=== PATIENT | female | born 1965 | race Caucasian/White ===

== ENCOUNTER → 2017-08-04 16:41 | Outpatient (CLI) | payer BC, SELFPAY ==
--- NOTE | 2017-08-04 16:49 | MM_ITS ---
MM Dig screening mamm BI w/CAD CAD Screening COMPARISON: Digital mammograms 11/15/2014 at 01/23/2016 INDICATION: There is no personal or family history of breast cancer. There is been previous biopsy right breast. TECHNIQUE: Standard CC and MLO images were obtained. R2 CAD reviewed. FINDINGS: Prominent diffuse heterogenic fibroglandular densities are seen throughout both breasts. There is a possible new area of asymmetric glandular density lower central portion left breast at approximately the 6:00 position. This is deep within the breast and likely is a summation shadow. However] recommend patient return for rolled cc views and 90 degrees lateral view and ultrasound for additional evaluation. There are mole markers on each breast. There is a biopsy clip right breast. There are no suspicious microcalcifications. IMPRESSION: Moderate diffuse breast density with possible developing asymmetric density left breast and recommend patient return for additional imaging BI-RADS Category: 0 Need Additional Imaging Evaluation RECOMMENDED FOLLOW-UP: IMM - IMMEDIATE FOLLOW-UP RECOMMENDED (A letter has been sent to the patient regarding results of the study.)
== END ==
PROVIDERS: Family Provider Nurse Practitioner; PCP Nurse Practitioner; Visit Provider Nurse Practitioner
DX: Z12.31 Encounter for screening mammogram for malignant neoplasm of breast (principal)
CPT/HCPCS: 77067

== ENCOUNTER → 2017-09-05 12:41 | Outpatient (CLI) | payer BC, SELFPAY ==
--- NOTE | 2017-09-05 12:46 | MM_ITS ---
MM Dig mamm DX unilat LT CAD, US breast LT complete COMPARISON: 08/04/2017, 11/15/1948, 06/15/2013 INDICATION: Follow-up abnormal mammogram ORDERING PHYSICIAN: Emi Leal PATIENT AGE: 52 years TECHNIQUE: Problem-solving views and left breast ultrasound FINDINGS: There is average to dense fibroglandular tissue. Previously noted asymmetric density deep aspect of the left breast appear to compress out as fibroglandular tissue. The asymmetric density does not persist on the rolled views. The asymmetric density in the inferior aspect of the left breast probably present on previous exams dating back to 714 without evidence of discrete mass. No sonographic abnormality evident in this region. Severe to compress out on spot compression view Left breast ultrasound: No sonographic abnormalities detected. Specifically, no mass evident in the deep aspect of the left breast or the infra aspect of the left breast IMPRESSION: No convincing evidence of malignancy. Probably benign findings BI-RADS Category: 3 Benign Finding Short Term Follow-up RECOMMENDED FOLLOW-UP: 6M - 6 MONTH FOLLOW-UP (A letter has been sent to the patient regarding results of the study.)
== END ==
PROVIDERS: Family Provider Nurse Practitioner; PCP Nurse Practitioner; Visit Provider Nurse Practitioner Family
DX: R92.8 Other abnormal and inconclusive findings on diagnostic imaging of breast (principal)
CPT/HCPCS: 76641; 77065

== ENCOUNTER → 2019-05-03 16:15 | Outpatient (CLI) | payer BC, SELFPAY ==
--- NOTE | 2019-05-03 16:20 | MM_ITS ---
PROCEDURE: MM DIG SCREENING MAMM BI W/CAD CLINICAL INDICATION: SCREENING There is no personal or family history of breast cancer. COMPARISON: [facility] DIG MAMM-SCREEN ANGELA from 01/23/2016 [facility] MM Dig screening mamm BI w/CAD from 08/04/2017 DXLT MM Dig mamm DX unilat LT CAD from 09/05/2017 TECHNIQUE: Standard CC and MLO images were obtained. R2 CAD reviewed. FINDINGS: Moderate diffuse somewhat heterogenic fibroglandular densities are seen in both breast. There are mole markers on both breasts. There is a biopsy clip right breast. There is a stable low-lying fatty replaced node near the axillary tail left breast. There is no suspicious lesion and no suspicious microcalcifications. IMPRESSION: Moderate diffuse breast density with no suspicious lesions seen BI-RAD Category: 2 Benign Finding(s) FOLLOW-UP: 1YR 1 Year Follow-up (A letter has been sent to the patient regarding results of the study.) Dictated by: Dr. Christiano Flood MD 05/04/2019 15:[address] Christiano Flood MD in [place] 05/04/2019 15:14
== END ==
PROVIDERS: PCP Nurse Practitioner Family; Visit Provider Nurse Practitioner Family
DX: Z12.31 Encounter for screening mammogram for malignant neoplasm of breast (principal)
CPT/HCPCS: 77067

== ENCOUNTER → 2021-03-15 07:50 | Outpatient (CLI) | payer BC, SELFPAY ==
--- NOTE | 2021-03-15 07:53 | MM_ITS ---
PROCEDURE INFORMATION: Exam: MG Bilateral Screening 3D Mammography Exam date and time: 03/15/2021 7:53 AM Age: 56 years old Clinical indication: Encounter for screening mammogram for malignant neoplasm of breast TECHNIQUE: Imaging protocol: Bilateral screening tomosynthesis and 2D mammography including computer-aided detection (CAD) when performed. COMPARISON: No relevant prior studies available. FINDINGS: MAMMOGRAPHY: Breast composition: The breast tissue is heterogeneously dense, which may obscure small masses. Mass: None. Architectural distortion: None. Calcifications: No suspicious calcifications. Asymmetric density: None. Skin thickening: None. Axillary adenopathy: None. IMPRESSION: No mammographic evidence of malignancy. Annual screening is recommended unless otherwise clinically indicated. ASSESSMENT: BI-RADS Category 1: Negative
== END ==
PROVIDERS: PCP Nurse Practitioner Family; Visit Provider Family Medicine
DX: Z12.31 Encounter for screening mammogram for malignant neoplasm of breast (principal)
CPT/HCPCS: 77063; 77067

== ENCOUNTER → 2022-04-08 09:10 | Outpatient (CLI) | payer BC, SELFPAY ==
--- NOTE | 2022-04-08 09:36 | MM_ITS ---
PROCEDURE INFORMATION: Exam: MG Bilateral Screening 3D Mammography Exam date and time: 04/08/2022 9:40 AM Age: 57 years old Clinical indication: Screening examination TECHNIQUE: Imaging protocol: Bilateral Screening tomosynthesis and 2D mammography including computer-aided detection (CAD) when performed. COMPARISON: 1. MG MM DIG SCREENING MAMM BI W/CAD 03/15/2021 8:06 AM 2. MG MM DIG SCREENING MAMM BI W/CAD 05/03/2019 4:40 PM FINDINGS: MAMMOGRAPHY: Breast composition: There are scattered areas of fibroglandular density. Mass: None. Architectural distortion: None. Calcifications: No suspicious calcifications. Asymmetric density: None. Skin thickening: None. Axillary adenopathy: None. IMPRESSION: No mammographic evidence of malignancy. Annual screening is recommended unless otherwise clinically indicated. ASSESSMENT: BI-RADS Category 1: Negative
== END ==
PROVIDERS: PCP Family Medicine; Visit Provider Obstetrics & Gynecology
DX: Z12.31 Encounter for screening mammogram for malignant neoplasm of breast (principal)
CPT/HCPCS: 77063; 77067

== ENCOUNTER → 2023-05-22 07:31 | Outpatient (CLI) | payer BC, SELFPAY ==
--- NOTE | 2023-05-22 07:37 | MM_ITS ---
PROCEDURE INFORMATION: Exam: MG Bilateral Screening 3D Mammography Exam date and time: 05/22/2023 7:34 AM Age: 58 years old Clinical indication: Screening. No family history of breast cancer. TECHNIQUE: Imaging protocol: Bilateral Screening tomosynthesis and 2D mammography including computer-aided detection (CAD) when performed. COMPARISON: 1. MG MM DIG SCREENING MAMM BI W/CAD 04/08/2022 9:40 AM 2. MG MM DIG SCREENING MAMM BI W/CAD 03/15/2021 8:06 AM 3. MG MM DIG SCREENING MAMM BI W/CAD 05/03/2019 4:40 PM 4. MG DXLT MM Dig mamm DX unilat LT CAD 09/05/2017 1:11 PM FINDINGS: MAMMOGRAPHY: Breast composition: There are scattered areas of fibroglandular density. Mass: None. Architectural distortion: None. Calcifications: No suspicious calcifications. Asymmetric density: None. Skin thickening: None. Axillary adenopathy: None. IMPRESSION: No mammographic evidence of malignancy. Annual screening is recommended unless otherwise clinically indicated. ASSESSMENT: BI-RADS Category 1: Negative
== END ==
PROVIDERS: PCP Family Medicine; Visit Provider Family Medicine
DX: Z12.31 Encounter for screening mammogram for malignant neoplasm of breast (principal)
CPT/HCPCS: 77063; 77067

== ENCOUNTER 2023-07-09 08:30 | Emergency (ER) | payer BC, SELFPAY ==
[2023-07-09 09:15] VITALS: BP 131/84; PULSE 125; RESP 18; TEMP 36.7; O2SAT 99; BMI 26.2
--- NOTE | 2023-07-09 09:17 | EXP.UTC ---
Discharge Plan Disposition Patient Disposition: Home, Self-Care Condition: Good Prescriptions Prescriptions: New ondansetron 4 mg Tablet,Disintegrating 4 mg PO Q8H PRN (Reason: Nausea) Qty: 12 0RF meclizine 25 mg tablet 25 mg PO Q6HP PRN (Reason: diziness) Qty: 30 0RF azithromycin [Zithromax] 250 mg tablet 250 mg PO UD DOSE PK Qty: 6 0RF Rx Instructions: Take two (2) tablets today, then one (1) tablet days #2 thru #5 benzonatate [benzonatate] 100 mg capsule 100 mg PO TIDP PRN (Reason: Cough) Qty: 30 0RF No Action metformin 1,000 mg tablet 500 mg PO DAILY Jardiance 25 mg tablet 25 mg PO DAILY gabapentin 400 mg capsule 400 mg PO DAILY pravastatin 40 mg tablet 40 mg PO DAILY fenofibrate nanocrystallized 145 mg tablet 145 mg PO DAILY estradiol 0.01 % (0.1 mg/gram) cream 1 appful vaginal .twice weekly Qty: 42.5 2RF Referrals Follow up/Referrals: Jessika Guillory APRN [Primary Care Provider] - See instructions Activity Restrictions/Add. Instructions Additional Instructions/Restrictions: Drink plenty of fluids. Take tylenol or ibuprofen for pain or fever. Take the medications as directed. Follow up with your regular doctor. GO TO THE ER FOR ANY WORSENING SYMPTOMS Take the zofran (ondesetron) as needed for nausea. Take the meclizine (antivert) as needed for dizziness. It will make you drowsy, so don't drive or operate heavy machinery after taking it. Clinical Impressions Clinical Impression: Acute viral syndrome Stand Alone Forms Stand Alone Forms: Work/School Release Instructions Patient Instructions: DI for Viral Syndrome, Ondansetron, Meclizine Discharge ED Provider: Kareem Walker [facility] General Stated complaint: body aches, dizziness, dry heaves, nausea Time Seen by Provider: 07/09/23 09:17 History of Present Illness Provider Complaint: She states that for the past 1 day she has had low grade fever, chills, body aches, nausea/vomiting, and intermittent dizziness. 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 Related Data Home Medications Medication Instructions Recorded Confirmed empagliflozin 25 mg tablet 25 mg PO DAILY 05/19/21 07/09/23 (Jardiance) gabapentin 400 mg capsule 400 mg PO DAILY 05/19/21 07/09/23 fenofibrate nanocrystallized 145 145 mg PO DAILY 05/22/23 07/09/23 mg tablet metformin 1,000 mg tablet 500 mg PO DAILY 05/22/23 07/09/23 pravastatin 40 mg tablet 40 mg PO DAILY 05/22/23 07/09/23 Previous Rx's Medication Instructions Recorded estradiol 0.01% (0.1 mg/gram) 1 appful vaginal .twice weekly 05/27/23 vaginal cream #42.5 grams azithromycin 250 mg tablet 250 mg PO UD DOSE PK #6 tabs 07/09/23 (Zithromax) benzonatate 100 mg capsule 100 mg PO TIDP PRN Cough #30 caps 07/09/23 meclizine 25 mg tablet 25 mg PO Q6HP PRN diziness #30 tabs 07/09/23 ondansetron 4 mg disintegrating 4 mg PO Q8H PRN Nausea #12 tabs 07/09/23 tablet Allergies Allergy/AdvReac Type Severity Reaction Status Date / Time No Known Allergies Allergy Verified 07/09/23 09:36 [facility] Disclaimer: The information contained in this section may have been updated after the patient was seen, as this information can be updated by other users. Medical History Diabetes mellitus History of hypertension Surgical History History of delivery History of cholecystectomy Social History Smoking Status: Never smoker alcohol intake: never current occupational status: employed Travel in the last 8 weeks: None ROS Obtained: Yes All systems reviewed & no additional complaints except as documented Constitutional Constitutional: Reports chills and Reports fever(s) Eyes Eyes: Denies eye discharge ENT Ears, Nose, Mouth, and Throat: Reports as per HPI Cardiovascular Cardiovascular: Denies chest pain Respiratory Respiratory: Denies chest congestion and Reports cough Gastrointestinal Gastrointestingal: Reports nausea; Denies abdominal pain, constipation, cramping, diarrhea or vomiting Musculoskeletal Musculoskeletal: Denies arthralgias Integumentary/Breasts Skin/Breast: Denies rash Neurologic Neurologic: Denies paresthesias Physical Exam General General appearance: alert and in no apparent distress Head Head exam: atraumatic, normocephalic and normal inspection Eye Eye exam: Present normal appearance, PERRL and EOMI ENT ENT exam: Present normal exam, normal oropharynx, mucous membranes moist, TM's normal bilaterally and normal external ear exam Neck Neck exam: Present normal inspection, full ROM and trachea midline; Absent meningismus or lymphadenopathy Chest Chest inspection: Present normal inspection and symmetric chest wall rise; Absent tenderness Respiratory Respiratory exam: Present normal lung sounds bilaterally; Absent respiratory distress Cardiovascular Cardiovascular exam: Present regular rate and normal rhythm; Absent JVD Abdominal Exam Abdominal exam: Present soft and normal bowel sounds; Absent distention, tenderness or guarding Extremities Exam Extremities exam: Present normal inspection, full ROM and normal capillary refill; Absent calf tenderness Back Exam Back exam: Present normal inspection; Absent tenderness Neurological Exam Neurological exam: Present alert, oriented X3, CN II-XII intact, normal gait and reflexes normal; Absent motor sensory deficit Expanded Neurological Exam Speech: Present fluid speech Cranial nerves: Normal: EOM function (II, III, IV, ), facial sensation (V), facial palsy (VII), gag reflex (IX), spinal accessory function (XI) and tongue deviation (XII) Cerebellar function: normal gait Motor strength - LUE: 5/5 Motor strength - RUE: 5/5 Motor strength - LLE: 5/5 Motor strength - RLE: 5/5 Sensory exam upper extremity: Normal: light touch and 2 point discrimination Sensory exam lower extremity: Normal: light touch and 2 point discrimination DTR: 2+: biceps (L), biceps (R), patellar (L), patellar (R), Achilles tendon (L) and Achilles tendon (R) Psychiatric Psychiatric exam: Present normal affect and normal mood Skin Skin exam: Present warm, dry, intact and normal color Lymphatic Lymphatic Findings: no adenopathy Medical Decision Making Medical Records Medical records reviewed: No I reviewed the patient's medical records. Go Inquiry Pt receiving controlled substance: No Lab Data Lab results reviewed: Yes I reviewed the patient's lab results. Medical Decision Narrative: She refused lab work, cxr and IV fluid bolus.
[2023-07-09 09:44] LABS: UTC Influenza A Antigen Negative (Negative)
[2023-07-09 09:45] LABS: UTC Influenza B Antigen Negative (Negative)
[2023-07-09 10:05] VITALS: BP 131/84; PULSE 125; RESP 18; TEMP 36.7; O2SAT 99
[2023-07-09 10:22] LABS: Adenovirus,PCR Not Detected (NotDetected); Coronavirus 19, PCR Not Detected (NotDetected); Coronavirus 229E Not Detected (NotDetected); Coronavirus NL63 Not Detected (NotDetected); Coronavirus OC43 Not Detected (NotDetected); Coronovirus HKU1,PCR Not Detected (NotDetected); Human Metapneumovirus Not Detected (NotDetected); Influenza A, PCR Not Detected (NotDetected); Influenza AH1, 2009 Not Detected (NotDetected); Influenza AH1, PCR Not Detected (NotDetected); Influenza AH3,PCR Not Detected (NotDetected); Influenza B, PCR Not Detected (NotDetected); Parainfluenza 1, PCR Not Detected (NotDetected); Parainfluenza 2, PCR Not Detected (NotDetected); Parainfluenza 3, PCR Not Detected (NotDetected); Parainfluenza 4, PCR Not Detected (NotDetected); Respiratory Syncytial Virus Not Detected (NotDetected); Rhinovirus/Enterovirus Not Detected (NotDetected)
== END 2023-07-09 10:05 | disposition home or self-care (01) ==
PROVIDERS: Emergency Provider Nurse Practitioner Family; PCP Nurse Practitioner Family
DX: R05.9 Cough, unspecified (principal); R11.2 Nausea with vomiting, unspecified; R50.9 Fever, unspecified; R42 Dizziness and giddiness; M79.18 Myalgia, other site; I10 Essential (primary) hypertension; E11.9 Type 2 diabetes mellitus without complications; Z79.84 Long term (current) use of oral hypoglycemic drugs; Z20.828 Contact with and (suspected) exposure to other viral communicable diseases; B34.9 Viral infection, unspecified
CPT/HCPCS: 87632; 87635; 87804; 99212; 99214; G0463

== ENCOUNTER 2023-07-09 21:06 | Inpatient (IN) | payer BC, SELFPAY ==
[2023-07-09] VITALS (12 sets, daily range): BP systolic 96–107; BP diastolic 64–78; PULSE 104–110; RESP 13–17; TEMP 32.8–34.5; O2SAT 96–100; BMI 24.0
--- NOTE | 2023-07-09 21:13 | ED_ITS ---
Discharge Plan Disposition Patient Disposition: Admitted Chief Complaint: Altered Mental Status Clinical Impressions Clinical Impression: DKA, type 2, AMS (altered mental status), Shock Discharge ED Provider: Jonny Whelan General Adult HPI <JESSICA Coombs - Last Filed: 07/09/23 22:51> General Chief complaint: Altered Mental Status Stated complaint: weak, dizzy Time Seen by Provider: 07/09/23 21:09 History of Present Illness HPI narrative: The patient is a 58-year-old female presented to the emergency department initially for altered mental status weakness and dizziness. Patient has a past medical history that includes of type 2 diabetes mellitus not on insulin. Per patient's she is given a 3-day history of progressive nausea vomiting and generalized weakness. Patient did go to work yesterday but did not feel well. Patient reportedly visited the local [facility] today for her symptoms and had a comprehensive respiratory panel that was negative. She then returned home. She was found by a family member disoriented weak barely responsive but awake and maintaining her airway. She cannot walk unassisted. Related Data Home Medications Medication Instructions Recorded Confirmed empagliflozin 25 mg tablet 25 mg PO DAILY 05/19/21 07/09/23 (Jardiance) gabapentin 400 mg capsule 400 mg PO DAILY 05/19/21 07/09/23 fenofibrate nanocrystallized 145 145 mg PO DAILY 05/22/23 07/09/23 mg tablet metformin 1,000 mg tablet 500 mg PO DAILY 05/22/23 07/09/23 pravastatin 40 mg tablet 40 mg PO DAILY 05/22/23 07/09/23 Previous Rx's Medication Instructions Recorded estradiol 0.01% (0.1 mg/gram) 1 appful vaginal .twice weekly 05/27/23 vaginal cream #42.5 grams azithromycin 250 mg tablet 250 mg PO UD DOSE PK #6 tabs 07/09/23 (Zithromax) benzonatate 100 mg capsule 100 mg PO TIDP PRN Cough #30 caps 07/09/23 meclizine 25 mg tablet 25 mg PO Q6HP PRN diziness #30 tabs 07/09/23 ondansetron 4 mg disintegrating 4 mg PO Q8H PRN Nausea #12 tabs 07/09/23 tablet Allergies Allergy/AdvReac Type Severity Reaction Status Date / Time No Known Allergies Allergy Verified 07/09/23 09:36 PFSH <JESSICA Coombs - Last Filed: 07/09/23 22:51> [facility] Disclaimer: The information contained in this section may have been updated after the clifford ent was seen, as this information can be updated by other users. Medical History Diabetes mellitus History of hypertension Surgical History History of delivery History of cholecystectomy Social History Smoking Status: Never smoker alcohol intake: never current occupational status: employed Travel in the last 8 weeks: None <JESSICA Coombs - Last Filed: 07/09/23 22:51> ROS Obtained: Yes Systems reviewed as appropriate & no additional complaints except as documented Physical Exam <JESSICA Coombs - Last Filed: 07/09/23 22:51> Narrative Physical exam: Patient is a toxic appearing well-nourished well-developed 58-year-old female who appears to be acutely ill General General appearance: lethargic and in distress Head Head exam: atraumatic and normal inspection Eye Eye exam: Present normal appearance, PERRL and EOMI ENT ENT exam: Present normal exam, normal oropharynx, mucous membranes moist, mucous membranes dry and other (Patient has a strong odor of acetone on her breath) Neck Neck exam: Present normal inspection, full ROM and trachea midline; Absent lymphadenopathy Chest Chest inspection: Present normal inspection and symmetric chest wall rise; Absent tenderness Respiratory Respiratory exam: Present normal lung sounds bilaterally and other (Patient is significantly tachypneic); Absent accessory muscle use Cardiovascular Cardiovascular exam: Present tachycardia, irregular rhythm, normal heart sounds, +S1 and +S2 Abdominal Exam Abdominal exam: Present soft and hyperactive bowel sounds; Absent tenderness, guarding or rebound Extremities Exam Extremities exam: Present normal inspection and full ROM Back Exam Back exam: Present normal inspection Neurological Exam Neurological exam: Present other (Patient is lethargic and cannot participate in cranial nerve exam. Glascow coma score currently is 3 - 5 - 6) Psychiatric Psychiatric exam: Present other (Patient is lethargic but responds appropriately albeit sluggishly) Skin Skin exam: Present diaphoresis and other (Skin is cool clammy pale) Lymphatic Lymphatic Findings: no adenopathy Medical Decision Making <JESSICA Coombs - Last Filed: 07/09/23 22:51> Medical Records Medical records reviewed: Yes I reviewed the patient's medical records. Go Inquiry Pt receiving controlled substance: No Go was queried for this patient: No Vital Signs: 07/09/23 21:07 07/09/23 21:30 07/09/23 22:00 Temperature 94.1 F L Temperature Source Rectal Pulse Rate 108 H Pulse Rate [Right Brachial] 109 H Respiratory Rate 16 17 16 Blood Pressure 107/73 L 105/70 L Blood Pressure [Right Arm] 104/78 L Blood Pressure Mean [Right Arm] 86 02 Sat by Pulse Oximetry 96 99 Oxygen Delivery Method Room Air 07/09/23 22:32 07/09/23 22:39 07/09/23 22:45 Temperature Temperature Source Pulse Rate 106 H 104 H 105 H Pulse Rate [Right Brachial] Respiratory Rate 15 14 13 Blood Pressure 97/65 L 96/64 L 97/70 L Blood Pressure [Right Arm] Blood Pressure Mean [Right Arm] 02 Sat by Pulse Oximetry 100 100 100 Oxygen Delivery Method 07/09/23 22:55 07/09/23 22:30 07/09/23 23:00 Temperature 93.3 F L 91.1 F L Temperature Source Rectal Rectal Pulse Rate 108 H 105 H 108 H Pulse Rate [Right Brachial] Respiratory Rate 14 14 14 Blood Pressure 97/70 L 96/64 L 106/76 L Blood Pressure [Right Arm] Blood Pressure Mean [Right Arm] 02 Sat by Pulse Oximetry 100 100 100 Oxygen Delivery Method Room Air Room Air 07/09/23 23:15 Temperature Temperature Source Pulse Rate 108 H Pulse Rate [Right Brachial] Respiratory Rate 15 Blood Pressure 104/76 L Blood Pressure [Right Arm] Blood Pressure Mean [Right Arm] 02 Sat by Pulse Oximetry 100 Oxygen Delivery Method Lab Data Lab results reviewed: Yes I reviewed the patient's lab results. Lab Results 07/09/23 21:15: WBC 23.0 H*, RBC 5.37, Hgb 17.1 H, Hct 55.9 H, MCV 104.1 H, MCH 31.8 H, MCHC 30.5 L, RDW 13.2, Plt Count 316, MPV 8.0, Neut % (Auto) 79.8, Lymph % (Auto) 12.4, [place] % (Auto) 6.3, Eos % (Auto) 0.6, Baso % (Auto) 0.9, Neut # (Auto) 18.3 H, Lymph # (Auto) 2.9, [place] # (Auto) 1.5 H, Eos # (Auto) 0.1, Baso # (Auto) 0.2, Total Counted 100, Neutrophils % (Manual) 81 H, Lymphocytes % (Manual) 12, Monocytes % (Manual) 7, Platelet Estimate Normal, RBC Morphology Not Reportable, Macrocytosis 1+, PT 12.8 H, INR 1.20 H, Sodium 135 L, Potassium 3.7, Chloride 102, Carbon Dioxide < 5 L*, Anion Gap 31.7 H, BUN 25 H, Creatinine 1.80 H, Estimated Creat Clear 35, Estimated GFR 29 L, Est GFR ( Amer) 35 L, Glucose 505 H*, Lactate 2.6 H, Calcium 9.2, Magnesium 2.7 H, Total Bilirubin 0.6, AST 46 H, ALT 29, Alkaline Phosphatase 131 H, Troponin I 1.25 H, Total Protein 7.8, Albumin 4.5, Globulin 3.3 H, Albumin/Globulin Ratio 1.4, Procalcitonin 0.666, Acetone Level Moderate 07/09/23 21:17: VBG pH 6.71 L, VBG pCO2 26.0 L, VBG pO2 62.8 H, VBG HCO3 3.2 L, VBG Total CO2 4.0 L, VBG O2 Saturation 87.6 H, VBG Base Excess -32.9 L 07/09/23 21:30: Urine Color Yellow, Urine Appearance Clear, Urine pH 6.0, Ur Specific Pauline 1.025, Urine Protein 1+, Urine Glucose (UA) 3+, Urine Ketones 3+, Urine Blood 2+, Urine Nitrate Negative, Urine Bilirubin Negative, Urine U robilinogen 0.2, Ur Leukocyte Esterase Negative, Urine RBC Occasional, Urine WBC None, Ur Squamous Epith Cells Occasional, Urine Bacteria None 07/09/23 21:15 07/09/23 21:15 Orders (Tests/Meds): ED MEDICATIONS Generic Name Dose Route Start Last Admin Trade Name Freq PRN Reason Stop Dose Admin Lactated Ringer's 2,000 mls @ 999 mls/hr 07/09/23 21:43 07/09/23 21:45 Lactated Ringer's 1000 Ml Bag IV 07/09/23 23:43 999 mls/hr .Q2H1M ONE Administration Vancomycin/PEG/NADA/Lysine/Water 1.25 gm in 250 mls @ 125 mls/hr 07/09/23 21:45 07/09/23 22:24 Vancomycin 1.25gm/250ml (Peg) Premix IV 07/09/23 23:44 125 mls/hr ONCE ONE Administration Insulin Human Regular 100 unit 101 mls @ 6.414 mls/hr 07/09/23 22:00 / Sodium Chloride IV 08/08/23 21:59 .[id number] LOC Protocol 0.1 UNITS/KG/HR Sodium Bicarbonate 50 meq/ 1,050 mls @ 125 mls/hr 07/09/23 22:15 07/09/23 22:37 Potassium Chloride/Sodium IV 08/08/23 22:14 125 mls/hr Chloride .Q8H24M LOC Administration Potassium Chloride/Water 100 mls @ 100 mls/hr 07/09/23 22:47 07/09/23 22:51 Potassium Chloride 10meq/100ml Ivpb IV 07/10/23 00:46 100 mls/hr Q1H LOC Administration Miscellaneous 1 each 07/09/23 21:45 07/09/23 21:45 Vancomycin Consult Request NOTAPPLIC 08/08/23 21:44 1 each CONSULT PHARMACY LOC Administration Sodium Chloride 10 ml 07/09/23 21:23 Sodium Chloride 0.9% 10ml Flush Syringe IV 07/10/23 09:27 NEEDED PRN Maintain IV Site Sodium Chloride 10 ml 07/09/23 22:16 07/09/23 22:17 Sodium Chloride 0.9% 10ml Syr (Rad Only) IV 08/08/23 22:15 10 ml NEEDED PRN Administration Maintain IV Site Discontinued Medications Generic Name Dose Route Start Last Admin Trade Name Freq PRN Reason Stop Dose Admin Sodium Chloride 1,000 mls @ 999 mls/hr 07/09/23 21:23 07/09/23 21:43 Sod Chlor 0.9% 1000ml Bag IV 07/09/23 22:23 Not Given .Q1H1M ONE Ampicillin Sodium/Sulbactam 100 mls @ 200 mls/hr 07/09/23 21:38 07/09/23 21:45 Sodium 3 gm/ Sodium Chloride IV 07/09/23 21:39 200 mls/hr ONCE ONE Administration Potassium Chloride/Sodium Chloride 1,000 mls @ 200 mls/hr 07/09/23 22:00 Kcl 40 Meq-Ns 1,000ml Iv Soln IV 08/08/23 21:59 .Q5H LOC Iopamidol 75 ml 07/09/23 22:16 07/09/23 22:17 Iopamidol-370 (76%);100ml Bottle IV 07/09/23 22:17 75 ml ONCE ONE Administration Sodium Bicarbonate 50 meq 07/09/23 21:56 07/09/23 22:46 Sodium Bicarb 8.4% 50ml Syringe (Crash Cart) IV 07/09/23 21:57 Not Given ONCE ONE ORDERS Category Date Time Status CT abdomen pelvis w con Stat Cat Scan 07/09/23 21:[address] chest w con Stat Cat Scan 07/09/23 22:04 Completed Chest XR -- portable [XR chest portable] Stat Exams 07/09/23 21:15 Completed XR KUB Stat Exams 07/09/23 21:41 Completed Acetone, Serum (Rapid) Stat Lab 07/09/23 21:15 Completed CBC Man Diff [Complete Blood Count Man Dif] Stat Lab 07/09/23 21:15 Completed CMP [Comprehensive Metabolic Panel] Stat Lab 07/09/23 21:15 Completed INR [Prothrombin Time INR] Stat Lab 07/09/23 21:15 Completed Lactic Acid Stat Lab 07/09/23 21:15 Completed Magnesium Stat Lab 07/09/23 21:15 Completed Procalcitonin Stat Lab 07/09/23 21:15 Completed Rapid PCR Covid and Flu A/B Stat Lab 07/09/23 22:45 Ordered Trop I [Troponin I] Stat Lab 07/09/23 21:15 Completed Troponin I Q3H Lab 07/10/23 00:30 Ordered Troponin I Q3H Lab 07/10/23 03:30 Ordered UA [Urinalysis and Microscopic] Stat Lab 07/09/23 22:00 Ordered ABG [Arterial Blood Gas] Stat RT 07/09/23 22:49 Ordered VBG [Venous Blood Gas] Stat RT 07/09/23 22:00 Ordered Medical Decision Narrative: Tip: Independent interpretation of EKG demonstrates atrial tachycardia with intermittent PACs. Patient does have pretty consistent P waves, but variable ventricular response and intermittent. P waves with ventricular response approximately 110 bpm, but patient also having intermittent PACs. In summary patient is a 8-year-old female who presents to the emergency department for evaluation of altered mental status and lethargy. Patient is in undifferentiated shock upon arrival, hypothermic tachycardic tachypneic. Sickle exam shows content coordinator small breathing dry mucous membranes ketone on her breath extremely cool diaphoretic to touch. Differential diagnosis includes DKA, sepsis etc. Initial workup will be conducted with hematologic labs radiographic studies EKG. Initial interventions include crystalloid challenge warming blanket. Initial workup reviewed by me shows leukocytosis with an absolute neutrophil count of 18.3, INR is 1.2 venous blood gas shows pH 6.71 with a pCO2 of 26. CMP shows a sodium 135 potassium 3.7 CO2 that is undetectable and anion gap of 31.7 creatinine 1.8 with a GFR of 29 225 serum glucose of 505 lactate of 2.6 calcium 9.2 magnesium 2.7 AST of 46 alk phos of 131 initial troponin of 1.25. Urinalysis shows 3+ glucose 3+ ketones blood leukocyte and esterase negative with no bacteria acetone level was moderate serum. My unofficial interpretation of her CT scan chest abdomen pelvis does not show any acute processes. Upon repeat evaluation remains critically ill. Given this appropriate for ICU admission. I discussed patient management with the hospitalist service and they have agreed to accept the patient in admission <Jonny Whelan MD - Last Filed: 07/09/23 23:30> Vital Signs: 07/09/23 21:07 07/09/23 21:30 07/09/23 22:00 Temperature 94.1 F L Temperature Source Rectal Pulse Rate 108 H Pulse Rate [Right Brachial] 109 H Respiratory Rate 16 17 16 Blood Pressure 107/73 L 105/70 L Blood Pressure [Right Arm] 104/78 L Blood Pressure Mean [Right Arm] 86 02 Sat by Pulse Oximetry 96 99 Oxygen Delivery Method Room Air 07/09/23 22:32 07/09/23 22:39 07/09/23 22:45 Temperature Temperature Source Pulse Rate 106 H 104 H 105 H Pulse Rate [Right Brachial] Respiratory Rate 15 14 13 Blood Pressure 97/65 L 96/64 L 97/70 L Blood Pressure [Right Arm] Blood Pressure Mean [Right Arm] 02 Sat by Pulse Oximetry 100 100 100 Oxygen Delivery Method 07/09/23 22:55 07/09/23 22:30 07/09/23 23:00 Temperature 93.3 F L 91.1 F L Temperature Source Rectal Rectal Pulse Rate 108 H 105 H 108 H Pulse Rate [Right Brachial] Respiratory Rate 14 14 14 Blood Pressure 97/70 L 96/64 L 106/76 L Blood Pressure [Right Arm] Blood Pressure Mean [Right Arm] 02 Sat by Pulse Oximetry 100 100 100 Oxygen Delivery Method Room Air Room Air 07/09/23 23:15 Temperature Temperature Source Pulse Rate 108 H Pulse Rate [Right Brachial] Respiratory Rate 15 Blood Pressure 104/76 L Blood Pressure [Right Arm] Blood Pressure Mean [Right Arm] 02 Sat by Pulse Oximetry 100 Oxygen Delivery Method Lab Data Lab Results 07/09/23 21:15: WBC 23.0 H*, RBC 5.37, Hgb 17.1 H, Hct 55.9 H, MCV 104.1 H, MCH 31.8 H, MCHC 30.5 L, RDW 13.2, Plt Count 316, MPV 8.0, Neut % (Auto) 79.8, Lymph % (Auto) 12.4, [place] % (Auto) 6.3, Eos % (Auto) 0.6, Baso % (Auto) 0.9, Neut # (Auto) 18.3 H, Lymph # (Auto) 2.9, [place] # (Auto) 1.5 H, Eos # (Auto) 0.1, Baso # (Auto) 0.2, Total Counted 100, Neutrophils % (Manual) 81 H, Lymphocytes % (Manual) 12, Monocytes % (Manual) 7, Platelet Estimate Normal, RBC Morphology Not Reportable, Macrocytosis 1+, PT 12.8 H, INR 1.20 H, Sodium 135 L, Potassium 3.7, Chloride 102, Carbon Dioxide < 5 L*, Anion Gap 31.7 H, BUN 25 H, Creatinine 1.80 H, Estimated Creat Clear 35, Estimated GFR 29 L, Est GFR ( Amer) 35 L, Glucose 505 H*, Lactate 2.6 H, Calcium 9.2, Magnesium 2.7 H, Total Bilirubin 0.6, AST 46 H, ALT 29, Alkaline Phosphatase 131 H, Troponin I 1.25 H, Total Protein 7.8, Albumin 4.5, Globulin 3.3 H, Albumin/Globulin Ratio 1.4, Procalcitonin 0.666, Acetone Level Moderate 07/09/23 21:17: VBG pH 6.71 L, VBG pCO2 26.0 L, VBG pO2 62.8 H, VBG HCO3 3.2 L, VBG Total CO2 4.0 L, VBG O2 Saturation 87.6 H, VBG Base Excess -32.9 L 07/09/23 21:30: Urine Color Yellow, Urine Appearance Clear, Urine pH 6.0, Ur Specific Pauline 1.025, Urine Protein 1+, Urine Glucose (UA) 3+, Urine Ketones 3+, Urine Blood 2+, Urine Nitrate Negative, Urine Bilirubin Negative, Urine Urobilinogen 0.2, Ur Leukocyte Esterase Negative, Urine RBC Occasional, Urine WBC None, Ur Squamous Epith Cells Occasional, Urine Bacteria None Orders (Tests/Meds): ED MEDICATIONS Generic Name Dose Route Start Last Admin Trade Name Aparna PRN Reason Stop Dose Admin Lactated Ringer's 2,000 mls @ 999 mls/hr 07/09/23 21:43 07/09/23 21:45 Lactated Ringer's 1000 Ml Bag IV 07/09/23 23:43 999 mls/hr .Q2H1M ONE Administration Vancomycin/PEG/NADA/Lysine/Water 1.25 gm in 250 mls @ 125 mls/hr 07/09/23 21:45 07/09/23 22:24 Vancomycin 1.25gm/250ml (Peg) Premix IV 07/09/23 23:44 125 mls/hr ONCE ONE Administration Insulin Human Regular 100 unit 101 mls @ 6.414 mls/hr 07/09/23 22:00 / Sodium Chloride IV 08/08/23 21:59 .[id number] LOC Protocol 0.1 UNITS/KG/HR Sodium Bicarbonate 50 meq/ 1,050 mls @ 125 mls/hr 07/09/23 22:15 07/09/23 22:37 Potassium Chloride/Sodium IV 08/08/23 22:14 125 mls/hr Chloride .Q8H24M LOC Administration Potassium Chloride/Water 100 mls @ 100 mls/hr 07/09/23 22:47 07/09/23 22:51 Potassium Chloride 10meq/100ml Ivpb IV 07/10/23 00:46 100 mls/hr Q1H LOC Administration Miscellaneous 1 each 07/09/23 21:45 07/09/23 21:45 Vancomycin Consult Request NOTAPPLIC 08/08/23 21:44 1 each CONSULT PHARMACY LOC Administration Sodium Chloride 10 ml 07/09/23 21:23 Sodium Chloride 0.9% 10ml Flush Syringe IV 07/10/23 09:27 NEEDED PRN Maintain IV Site Sodium Chloride 10 ml 07/09/23 22:16 07/09/23 22:17 Sodium Chloride 0.9% 10ml Syr (Rad Only) IV 08/08/23 22:15 10 ml NEEDED PRN Administration Maintain IV Site Discontinued Medications Generic Name Dose Route Start Last Admin Trade Name Freq PRN Reason Stop Dose Admin Sodium Chloride 1,000 mls @ 999 mls/hr 07/09/23 21:23 07/09/23 21:43 Sod Chlor 0.9% 1000ml Bag IV 07/09/23 22:23 Not Given .Q1H1M ONE Ampicillin Sodium/Sulbactam 100 mls @ 200 mls/hr 07/09/23 21:38 07/09/23 21:4 5 Sodium 3 gm/ Sodium Chloride IV 07/09/23 21:39 200 mls/hr ONCE ONE Administration Potassium Chloride/Sodium Chloride 1,000 mls @ 200 mls/hr 07/09/23 22:00 Kcl 40 Meq-Ns 1,000ml Iv Soln IV 08/08/23 21:59 .Q5H LOC Iopamidol 75 ml 07/09/23 22:16 07/09/23 22:17 Iopamidol-370 (76%);100ml Bottle IV 07/09/23 22:17 75 ml ONCE ONE Administration Sodium Bicarbonate 50 meq 07/09/23 21:56 07/09/23 22:46 Sodium Bicarb 8.4% 50ml Syringe (Crash Cart) IV 07/09/23 21:57 Not Given ONCE ONE ORDERS Category Date Time Status CT abdomen pelvis w con Stat Cat Scan 07/09/23 21:[address] chest w con Stat Cat Scan 07/09/23 22:04 Completed Chest XR -- portable [XR chest portable] Stat Exams 07/09/23 21:15 Completed XR KUB Stat Exams 07/09/23 21:41 Completed Acetone, Serum (Rapid) Stat Lab 07/09/23 21:15 Completed CBC Man Diff [Complete Blood Count Man Dif] Stat Lab 07/09/23 21:15 Completed CMP [Comprehensive Metabolic Panel] Stat Lab 07/09/23 21:15 Completed INR [Prothrombin Time INR] Stat Lab 07/09/23 21:15 Completed Lactic Acid Stat Lab 07/09/23 21:15 Completed Magnesium Stat Lab 07/09/23 21:15 Completed Procalcitonin Stat Lab 07/09/23 21:15 Completed Rapid PCR Covid and Flu A/B Stat Lab 07/09/23 22:45 Ordered Trop I [Troponin I] Stat Lab 07/09/23 21:15 Completed Troponin I Q3H Lab 07/10/23 00:30 Ordered Troponin I Q3H Lab 07/10/23 03:30 Ordered UA [Urinalysis and Microscopic] Stat Lab 07/09/23 22:00 Ordered ABG [Arterial Blood Gas] Stat RT 07/09/23 22:49 Ordered VBG [Venous Blood Gas] Stat RT 07/09/23 22:00 Ordered Medical Decision Narrative: Tip: Independent interpretation of EKG demonstrates atrial tachycardia with intermittent PACs. Patient does have pretty consistent P waves, but variable ventricular response and intermittent. P waves with ventricular response approximately 110 bpm, but patient also having intermittent PACs. In summary patient is a 8-year-old female who presents to the emergency department for evaluation of altered mental status and lethargy. Patient is in undifferentiated shock upon arrival, hypothermic tachycardic tachypneic. Sickle exam shows content coordinator small breathing dry mucous membranes ketone on her breath extremely cool diaphoretic to touch. Differential diagnosis includes DKA, sepsis etc. Initial workup will be conducted with hematologic labs radiographic studies EKG. Initial interventions include crystalloid challenge warming blanket. Initial workup reviewed by me shows leukocytosis with an absolute neutrophil count of 18.3, INR is 1.2 venous blood gas shows pH 6.71 with a pCO2 of 26. CMP shows a sodium 135 potassium 3.7 CO2 that is undetectable and anion gap of 31.7 creatinine 1.8 with a GFR of 29 225 serum glucose of 505 lactate of 2.6 calcium 9.2 magnesium 2.7 AST of 46 alk phos of 131 initial troponin of 1.25. Urinalysis shows 3+ glucose 3+ ketones blood leukocyte and esterase negative with no bacteria acetone level was moderate serum. My unofficial interpretation of her CT scan chest abdomen pelvis does not show any acute processes. Upon repeat evaluation remains critically ill. Given this appropriate for ICU admission. I discussed patient management with the hospitalist service and they have agreed to accept the patient in admission I was consulted by the JILL, and we discussed the complexity of the problems being addressed. I approved the treatment and management plan for this patient?s care in the Emergency Department, thus performing a substantive portion of the medical decision making. Jonny Whelan MD Critical Care <JESSICA Coombs - Last Filed: 07/09/23 22:51> Critical Care Time Critical Care Time: Yes Attestation: On 07/09/23, the high probability of a clinically significant, sudden or life threatening deterioration of the following system(s) required my full and direct attention, intervention and personal management. The time I documented below is in addition to time spent performing reported procedures but includes the following listed in this critical care notation. Total Time Total Critical Care Time: 60
--- NOTE | 2023-07-09 21:14 | PC.NURSE ---
POC glucose 485
--- NOTE | 2023-07-09 21:15 | XR_ITS ---
PROCEDURE INFORMATION: Exam: XR Chest Exam date and time: 07/09/2023 9:18 PM Age: 58 years old Clinical indication: Cough and wheezing; Additional info: Cough wheezing TECHNIQUE: Imaging protocol: Radiologic exam of the chest. Views: 1 view. COMPARISON: No relevant prior studies available. FINDINGS: Lungs: Central opacities with peribronchial cuffing. Low lung volumes. Pleural spaces: Unremarkable. No pleural effusion. No pneumothorax. Heart/Mediastinum: Unremarkable. No cardiomegaly. Diaphragm: Eventration of the left hemidiaphragm. Bones/joints: Unremarkable. IMPRESSION: Combination of findings that suggests viral process versus reactive airways without evidence of consolidation.
--- NOTE | 2023-07-09 21:16 | PC.NURSE ---
in room with patient at this time.
--- NOTE | 2023-07-09 21:20 | ECG_ITS ---
APPROVED REPORT Exam: Resting ECG HR:110 bpm ECG Measurements Heart Rate 110 AXES QRSd 109 QRS 21 QT 367 T 103 QTc 432 Conclusion ATRIAL FIBRILLATION WITH RAPID VENTRICULAR RESPONSE ABNORMAL QRS-T ANGLE [QRS-T AXIS DIFFERENCE > 60] ABNORMAL ECG UNCONFIRMED REPORT Electronically signed by : Danyel Wolf MD 07/10/2023 16:34:16
[2023-07-09 21:25] LABS: MANUAL DIFFERENTIAL MANUAL DIFFERENTIAL (MANUAL DIFF)
[2023-07-09 21:31] LABS: Basophils # 0.2 K/mm3 (0-0.2); Basophils % 0.9 % (0.1-2.0); Eosinophils # 0.1 K/mm3 (0.0-0.4); Eosinophils % 0.6 % (0.1-12.0); Hematocrit 55.9 % (37.0-47.0); Hemoglobin 17.1 g/dL (12.2-16.2); Lymphocytes # 2.9 K/mm3 (0.7-4.5); Lymphocytes % 12.4 % (10-50); Mean Corpuscular HGB Conc 30.5 g/dL (31.8-35.4); Mean Corpuscular Hemoglobin 31.8 pg (27.0-31.2); Mean Corpuscular Volume 104.1 fl (81-99); Monocytes # 1.5 K/mm3 (0.1-1.0); Monocytes % 6.3 % (1.7-9.3); Neutrophils # 18.3 K/mm3 (1.8-7.8); Neutrophils % 79.8 % (37.0-80.0); Platelet Count 316 K/mm3 (142-424); Red Blood Count 5.37 M/mm3 (4.20-5.40); Red Cell Distribution Width 13.2 % (11.5-17.5)
[2023-07-09 21:33] LABS: Chloride 102 mmol/L (98-107); Potassium 3.7 mmoL/L (3.5-5.1); Sodium 135 mmol/L (136-145)
[2023-07-09 21:35] LABS: Alanine Aminotransferase 29 U/L (12-78); Aspartate Amino Transferase 46 U/L (14-36); Blood Urea Nitrogen 25 mg/dl (7-17); Creatinine Clearance Estimated 35 mL/min (50-200); Estimated Glomerular Filt Rate 29 ml/min (>60); GFR (African American) 35 ML/MIN (>60)
[2023-07-09 21:36] LABS: Albumin Level 4.5 g/dl (3.5-5.0); Albumin/Globulin Ratio 1.4 (1.1-1.8); Alkaline Phosphatase 131 U/L (38-126); Bilirubin,Total 0.6 mg/dl (0.2-1.3); Calcium 9.2 mg/dl (8.4-10.2); Globulin 3.3 g/dL (1.3-3.2); Magnesium 2.7 mg/dl (1.6-2.3); Total Protein,Serum 7.8 g/dl (6.3-8.2)
[2023-07-09 21:36] LABS: Microscopic, Urine URINE MICROSCOPIC (MICROSCOPIC)
[2023-07-09 21:37] LABS: Appearance,Urine CLEAR (Clear); Bilirubin,Urine Negative (Negative); Blood, Urine 2+ (Negative); Color,Urine YELLOW (Yellow); Glucose,Urine (UA) 3+ (Negative); Ketones,Urine 3+ (Negative); Leukocyte Esterase,Urine Negative (Negative); Nitrate,Urine Negative (Negative); Protein,Urine 1+ (Negative); Specific Gravity, Urine 1.025 (1.005-1.030); Urobilinogen,Urine 0.2 EU/dl (0.2)
[2023-07-09 21:37] LABS: Lactic Acid 2.6 mmol/L (0.7-2.1); Prothrombin Time 12.8 seconds (10.1-12.5)
--- NOTE | 2023-07-09 21:38 | CT_ITS ---
PROCEDURE INFORMATION: Exam: CT Abdomen And Pelvis With Contrast Exam date and time: 07/09/2023 10:09 PM Age: 58 years old Clinical indication: Abdominal pain; Additional info: Abdominal pain and distention TECHNIQUE: Imaging protocol: Computed tomography of the abdomen and pelvis with contrast. Radiation optimization: All CT scans at this facility use at least one of these dose optimization techniques: automated exposure control; mA and/or kV adjustment per patient size (includes targeted exams where dose is matched to clinical indication); or iterative reconstruction. Contrast material: ISOVUE; Contrast volume: 75 ml; Contrast route: IV; COMPARISON: CR XR KUB 07/09/2023 9:44 PM FINDINGS: Tubes, catheters and devices: Enteric tube terminating within the gastric body. Liver: Normal. No mass. Gallbladder and bile ducts: Postsurgical changes of cholecystectomy with expected mild biliary ductal dilatation. Pancreas: Fatty infiltration. No ductal dilation. Spleen: Normal. No splenomegaly. Adrenal glands: Normal. No mass. Kidneys and ureters: Mild right pelvicaliectasis. No stones. Stomach and bowel: Unremarkable. No obstruction. No mucosal thickening. Appendix: No evidence of appendicitis. Intraperitoneal space: Unremarkable. No free air. No significant fluid collection. Vasculature: Mild atherosclerosis. No abdominal aortic aneurysm. Lymph nodes: Unremarkable. No enlarged lymph nodes. Urinary bladder: Acharya catheterization. Reproductive: Pessary ring within the vagina. Bones/joints: Degenerative changes. Mild levoconvex curvature of the lumbar spine. No acute fracture. Soft tissues: Small fat containing periumbilical hernia. IMPRESSION: 1. Mild right pelvicaliectasis without ureterolithiasis or other identifiable obstructing process. 2. Enteric tube terminating within the gastric body.
--- NOTE | 2023-07-09 21:40 | PC.NURSE ---
wetzel catheter inserted per MD order; 1250 mL of urine out immediately. MD aware
--- NOTE | 2023-07-09 21:41 | XR_ITS ---
PROCEDURE INFORMATION: Exam: XR Abdomen Exam date and time: 07/09/2023 9:44 PM Age: 58 years old Clinical indication: Device placement; Gi device; Nasogastric tube; Additional info: Ng tube placement TECHNIQUE: Imaging protocol: Radiologic exam of the abdomen. Views: Frontal supine view of the abdomen. 1 View. COMPARISON: CR XR CHEST PORTABLE 07/09/2023 9:18 PM FINDINGS: Tubes, catheters and devices: The enteric tube follows the course of the esophagus with the tip and side port terminating at the gastric bubble. Surgical clips overlie the gallbladder fossa. Lungs: Central opacities with peribronchial cuffing. Gastrointestinal tract: Normal. No bowel dilation. Bones/joints: Unremarkable. IMPRESSION: 1. The enteric tube follows the course of the esophagus with the tip and side port terminating at the gastric bubble. 2. Combination of findings that suggests viral process versus reactive airways without evidence of consolidation. Eventration of the left hemidiaphragm.
[2023-07-09] MEDS: VANCOMYCIN CONSULT REQUEST 1 EACH NOTAPPLIC (21:45)
[2023-07-09] MEDS: LACTATED RINGERS 1000ML 2,000 ML 999 ML IV (21:45)
[2023-07-09] MEDS: AMPICILLIN/SULBACTAM 3 GM in 0.9 % SODIUM CHLORIDE 100 ML IV (21:45)
--- NOTE | 2023-07-09 21:45 | PC.NURSE ---
spoke with pharmacy-delfina nash. vancomycin 1250mg ordered and will be placed by him.
[2023-07-09 21:47] LABS: Acetone, Serum (Rapid) Moderate (None Detect)
[2023-07-09 21:48] LABS: Anion Gap 31.7 mEq/L (5-15)
[2023-07-09 21:50] LABS: Carbon Dioxide < 5 mmol/L (22.0-30.0); Glucose 505 mg/dl (74-100); Lymphocytes % 12 % (10-50); Macrocytosis 1+; Monocytes % 7 % (2-9); Neutrophils % 81 % (42-76); Platelet Estimate Normal; Total Cells Counted 100
[2023-07-09 21:53] LABS: VBG Base Excess -32.9 mmol/L (-2.4-2.3); VBG HCO3 3.2 mmol/L (23-30); VBG Oxygen Saturation 87.6 % (50-70); VBG PO2 62.8 mmol/L (28-40)
[2023-07-09 21:56] LABS: VBG PH 6.71 mmol/L (7.31-7.41)
--- NOTE | 2023-07-09 22:04 | CT_ITS ---
PROCEDURE INFORMATION: Exam: CT Chest With Contrast; Diagnostic Exam date and time: 07/09/2023 10:09 PM Age: 58 years old Clinical indication: Shortness of breath; Additional info: Dka, abnormal cxr TECHNIQUE: Imaging protocol: Diagnostic computed tomography of the chest with contrast. Radiation optimization: All CT scans at this facility use at least one of these dose optimization techniques: automated exposure control; mA and/or kV adjustment per patient size (includes targeted exams where dose is matched to clinical indication); or iterative reconstruction. Contrast material: ISOVUE; Contrast volume: 75 ml; Contrast route: IV; COMPARISON: CR XR CHEST PORTABLE 07/09/2023 9:18 PM FINDINGS: Tubes, catheters and devices: Enteric tube coursing within the esophagus. Lungs: Multiple round solid pulmonary nodules scattered throughout the lungs measuring up to 8 mm, some of which are partially calcified. Mosaic attenuation of the lungs. No consolidation. No masses. Pleural spaces: Unremarkable. No pneumothorax. No pleural effusion. Heart: Unremarkable. No cardiomegaly. No pericardial effusion. Coronary arteries: Coronary artery calcifications. Lymph nodes: Multiple mildly enlarged and partially calcified lower cervical and mediastinal lymph nodes. Vasculature: Unremarkable. No aortic aneurysm. Bones/joints: Degenerative changes. Mild dextroconvex curvature of the spine. No acute fracture. Soft tissues: Unremarkable. IMPRESSION: 1. Multiple round solid pulmonary nodules measuring up to 8 mm scattered throughout the lungs, some of which are partially calcified which may be related to an underlying granulomatous process or metastatic disease. 2. Mosaic attenuation of the lungs which may be seen with infection or small airways disease.
--- NOTE | 2023-07-09 22:08 | PC.NURSE ---
on phone with pharmacy to obtain correct order for bicarb mixed with potassium drip per MD.
--- NOTE | 2023-07-09 22:12 | PC.NURSE ---
patient in CT at this time.
--- NOTE | 2023-07-09 22:14 | PC.NURSE ---
PATIENT BACK FROM CT
[2023-07-09 22:16] LABS: Procalcitonin 0.666 ng/mL (0.0-2.0)
[2023-07-09] MEDS: SODIUM CHLORIDE 0.9% 10ML SYR (RAD ONLY) 10 ML IV (22:17)
[2023-07-09] MEDS: IOPAMIDOL-370 (76%);100ML BOTTLE 75 ML IV (22:17)
[2023-07-09 22:23] LABS: RBC,Urine Occasional #/hpf (0-3); Squamous Epithelial Cell,Urine Occasional #/hpf (0-5)
[2023-07-09] MEDS: VANCOMYCIN/WATER FOR INJ (PEG) 1.25 GM/250 ML PIGGYBACK IV (22:24)
[2023-07-09 22:25] LABS: Troponin I 1.25 ng/ml (0.00-0.034)
--- NOTE | 2023-07-09 22:30 | PC.NURSE ---
notified md of decrease in temperature.
[2023-07-09] MEDS: POTASSIUM CHLORIDE IV (22:37)
[2023-07-09] MEDS: SODIUM BICARBONATE IV (22:37)
[2023-07-09] MEDS: SODIUM CHLORIDE IV (22:37)
[2023-07-09] MEDS: KCl 10mEq/100ml 100 ML 100 MEQ IV ×2 (22:51→23:57)
[2023-07-09 22:54] LABS: Coronavirus 19, PCR Not Detected (NotDetected); Influenza A, PCR Not Detected (NotDetected); Influenza B, PCR Not Detected (NotDetected)
--- NOTE | 2023-07-09 23:06 | PC.NURSE ---
hospitalist in room seeing patient at this time.
--- NOTE | 2023-07-09 23:09 | PC.NURSE ---
called housekeeping room inspector for bed assignment. Request ICU bed placement, dx: DKA, hypovolemic shock, hospitalist admission. Spoke with YADIRA Randall
--- NOTE | 2023-07-09 23:11 | PC.NURSE ---
ACUTE ADMISSION TO ICU TO 218 WITH DX OF DKA AND HYPOVOLEMIC SHOCK TO SERVICE OF THE HOSPITALIST.
[2023-07-09 23:30] LABS: ABG Base Excess -30.4 mmol/L (-2.4-2.3); ABG HCO3 2.5 mmhg (22.0-26.0); ABG Oxygen Saturation 98 % (90-100); ABG PO2 129.5 mmhg (80-100)
[2023-07-09 23:34] LABS: Allen's Test Acceptable; Source Right Radial
--- NOTE | 2023-07-09 23:34 | P.HP_ITS ---
Attending attestation Patient was seen and evaluated at the bedside myself, agree with JILL note. History of Present Illness *Admission Date: 07/09/23 *Reason for visit:: AMS/DKA *History of present illness: This is a 58-year-old female PMHx of NIDDM, HLD, presented to the emergency department initially for altered mental status weakness and dizziness. History obtained form ED and patient's . Per patient's she is given a 3- day history of progressive nausea vomiting and generalized weakness. Patient did go to work yesterday but did not feel well. Patient reportedly visited the local today for her symptoms and had a comprehensive respiratory panel that was negative. She then returned home. She was found by a family member disoriented weak barely responsive but awake and maintaining her airway. She cannot walk unassisted. Admitted for treatment. [facility] Disclaimer: The information contained in this section may have been updated after the patient was seen, as this information can be updated by other users. Medical History (Updated 07/10/23 @ 03:01 by Arnaldo Mohan APRN) Bladder cancer Breast cancer Diabetes mellitus History of hypertension Surgical History History of delivery History of cholecystectomy Social History Smoking Status: Never smoker alcohol intake: never current occupational status: employed Travel in the last 8 weeks: None Review of Systems Review of Systems Review of systems:: pertinent systems reviewed and negative unless documented below Meds Home Medications and Allergies Home Medications Medication Instructions Recorded Confirmed Type empagliflozin 25 mg tablet 25 mg PO DAILY 05/19/21 07/10/23 History (Jardiance) gabapentin 400 mg capsule 400 mg PO DAILY 05/19/21 07/10/23 History fenofibrate nanocrystallized 145 145 mg PO DAILY 05/22/23 07/10/23 History mg tablet metformin 1,000 mg tablet 500 mg PO DAILY 05/22/23 07/10/23 History pravastatin 40 mg tablet 40 mg PO DAILY 05/22/23 07/10/23 History meclizine 25 mg tablet 25 mg PO Q6HP PRN diziness #30 tabs 07/09/23 07/10/23 Rx New Prescriptions to Start Prescriptions: Allergies Allergy/AdvReac Type Severity Reaction Status Date / Time No Known Allergies Allergy Verified 07/09/23 09:36 Exam Data for Last 24 hours Vital signs and Labs for Last 24 Hours: Temp Pulse Resp BP Pulse Ox O2 Del Method 93.3 F L 108 H 15 104/76 L 100 Room Air 07/09/23 22:55 07/09/23 23:15 07/09/23 23:15 07/09/23 23:15 07/09/23 23:15 07/09/23 22:55 Laboratory Results - last 24 hr 07/09/23 21:15: WBC 23.0 H*, RBC 5.37, Hgb 17.1 H, Hct 55.9 H, MCV 104.1 H, MCH 31.8 H, MCHC 30.5 L, RDW 13.2, Plt Count 316, MPV 8.0, Neut % (Auto) 79.8, Lymph % (Auto) 12.4, Orange % (Auto) 6.3, Eos % (Auto) 0.6, Baso % (Auto) 0.9, Neut # (Auto) 18.3 H, Lymph # (Auto) 2.9, Orange # (Auto) 1.5 H, Eos # (Auto) 0.1, Baso # (Auto) 0.2, Total Counted 100, Neutrophils % (Manual) 81 H, Lymphocytes % (Manual) 12, Monocytes % (Manual) 7, Platelet Estimate Normal, RBC Morphology Not Reportable, Macrocytosis 1+, PT 12.8 H, INR 1.20 H, Sodium 135 L, Potassium 3.7, Chloride 102, Carbon Dioxide < 5 L*, Anion Gap 31.7 H, BUN 25 H, Creatinine 1.80 H, Estimated Creat Clear 35, Estimated GFR 29 L, Est GFR ( Amer) 35 L, Glucose 505 H*, Lactate 2.6 H, Calcium 9.2, Magnesium 2.7 H, Total Bilirubin 0.6, AST 46 H, ALT 29, Alkaline Phosphatase 131 H, Troponin I 1.25 H, Total Protein 7.8, Albumin 4.5, Globulin 3.3 H, Albumin/Globulin Ratio 1.4, Procalcitonin 0.666, Acetone Level Moderate 07/09/23 21:17: VBG pH 6.71 L, VBG pCO2 26.0 L, VBG pO2 62.8 H, VBG HCO3 3.2 L, VBG Total CO2 4.0 L, VBG O2 Saturation 87.6 H, VBG Base Excess -32.9 L 07/09/23 21:30: Urine Color Yellow, Urine Appearance Clear, Urine pH 6.0, Ur Specific [place] 1.025, Urine Protein 1+, Urine Glucose (UA) 3+, Urine Ketones 3+, Urine Blood 2+, Urine Nitrate Negative, Urine Bilirubin Negative, Urine Urobilinogen 0.2, Ur Leukocyte Esterase Negative, Urine RBC Occasional, Urine WBC None, Ur Squamous Epith Cells Occasional, Urine Bacteria None 07/09/23 22:49: Specimen Source Right radial, Shabbir Test Acceptable I & O for Last 24 hours: Intake & Output 07/06/23 07/07/23 07/08/23 07/09/23 23:59 23:59 23:59 23:59 Output Total 1250 / 1250 Balance -1250 / -1250 Weight 63.503 kg Constitutional Constitutional: moderate distress, chronically ill appearing and somnolent *Routine HEENT Exam Head: Present normocephalic and atraumatic Eye: Present EOMI, PERRL and normal accommodation ENT: Present mucous membranes dry *Routine Neck Exam Neck: Present supple, full ROM and trachea midline *Routine Respiratory Exam Respiratory: Present prolonged expiratory phase, diminished air movement and able to speak in complete sentences *Routine Cardiovascular Exam Cardiovascular: Present RRR, Normal S1, Normal S2 and tachycardia *Routine Abdominal Exam Abdominal: Present soft and normoactive bowel sounds; Absent organomegaly *Routine Rectal Exam Rectal:: deferred *Routine Genitalia Exam Genitalia:: deferred *Routine Extremities Exam Extremities: Present full ROM and pulses intact; Absent cyanosis, clubbing or edema *Routine Skin Exam Skin: Present intact, dry and warm *Routine Neurological Exam Neurological: Present alert, oriented X3, normal reflexes and moving all extremities Routine Psychiatric Exam Psychiatric: Present cooperative H&P: Result Imaging and Cardiology EKG: Status: image reviewed by me and Preliminary report Chest x-ray: Status: image reviewed by me, Preliminary report and final report CT scan - abdomen: Status: image reviewed by me, Preliminary report and final report Assessment and Plan *Assessment and plan (1) DKA, type 2: Status: Acute Qualifiers: Diabetes mellitus complication detail: without coma Qualified Code(s): E11.10 - Type 2 diabetes mellitus with ketoacidosis without coma Category: Medical Code(s): E11.10 - Type 2 diabetes mellitus with ketoacidosis without coma (2) SIRS without infection with organ dysfunction: Status: Acute Category: Medical Code(s): R65.11 - Systemic inflammatory response syndrome (SIRS) of non-infectious origin with acute organ dysfunction (3) Hypothermia: Status: Acute Qualifiers: Encounter type: initial encounter Qualified Code(s): T68.XXXA - Hypothermia, initial encounter Category: Medical Code(s): T68.XXXA - Hypothermia, initial encounter (4) Elevated troponin: Status: Acute Category: Medical Code(s): R79.89 - Other specified abnormal findings of blood chemistry Plan 58-year-old female PMHx of NIDDM, HLD, presented to the emergency department initially for altered mental status weakness and dizziness. History obtained form ED and patient's . Per patient's she is given a 3-day history of progressive nausea vomiting and generalized weakness. On arrival patient visible sick. remains alert and oriented, and able to answer question appropriately. Presented tachycardic and hyporthermic. initial workup reviewed showed leukocytosis with an absolute neutrophil count of 18.3, INR is 1.2 VBG shows pH 6.71 with a pCO2 of 26. CMP shows a sodium 135 potassium 3.7 CO2 that is undetectable and anion gap of 31.7 creatinine 1.8 with a GFR of 29. EKG initially was afib with RVR. converted to ST. troponin was 1.26. Discussed with ED provider. Patient admitted to ICU. plan as follow: -DKA, type 2 without coma: SIRS with organ dysfunction, no clear sources of infection: Admit patient for ICU. On continuous monitoring per unit CMP q. 2\ 0.45 normal saline with 50 mEq of bicarb started at ER Another 50 mEq ordered On continuous insulin infusion Normal saline at 125 Watch for electrolyte imbalance. Replace by protocol Potassium and sodium are normalized UA negative Blood culture pending CT of the abdomen negative Chest x-ray reviewed. Suspected virus infection versus reactive pneumonitis Respiratory panel negative Pulmonology/critical care consult -Hypothermia: Likely secondary to above Core body temperature of 95.3. On huggy bear. Warmed infusion. -Elevated troponin: EKG stat. Shows sinus tach, with nonspecific ST changes cardiology consulted. Order to obtained. Heparin bolus given. Echo ordered One-time Lasix ordered Patient chest pain-free SCD for DVT prophylaxis. Protonix for GI bleed protection Full code
--- NOTE | 2023-07-09 23:35 | PC.NURSE ---
received results of vbg from rt bijan. given to md gomez
[2023-07-09 23:36] LABS: ABG PCO2 13.4 mmhg (35.0-45.0)
[2023-07-09 23:37] LABS: VBG Base Excess -31.1 mmol/L (-2.4-2.3); VBG HCO3 2.6 mmol/L (23-30); VBG Oxygen Saturation 90.1 % (50-70); VBG PO2 64.6 mmol/L (28-40); VBG Total CO2 3.1 mmol/L (23-27)
[2023-07-09 23:40] LABS: VBG PH 6.85 mmol/L (7.31-7.41)
[2023-07-09 23:41] LABS: VBG PCO2 15.6 mmol/L (35-51)
[2023-07-09] MEDS: INSULIN REGULAR, HUMAN 100 UNIT in 0.9 % SODIUM CHLORIDE 100 ML 6.41000000000000014 UNIT IV (23:42)
[2023-07-10] VITALS (35 sets, daily range): BP systolic 95–127; BP diastolic 55–80; PULSE 108–131; RESP 14–23; TEMP 33.7–37.7; O2SAT 96–100; BMI 23.3
[2023-07-10] MEDS: 0.9 % SODIUM CHLORIDE 1000ML 1,000 ML 150 ML IV (00:31)
[2023-07-10 00:43] LABS: Acetone, Serum (Rapid) Large (None Detect)
[2023-07-10 00:44] LABS: Alanine Aminotransferase 25 U/L (12-78); Albumin Level 4.1 g/dl (3.5-5.0); Albumin/Globulin Ratio 1.4 (1.1-1.8); Alkaline Phosphatase 136 U/L (38-126); Aspartate Amino Transferase 49 U/L (14-36); Bilirubin,Total 0.6 mg/dl (0.2-1.3); Blood Urea Nitrogen 23 mg/dl (7-17); Calcium 8.7 mg/dl (8.4-10.2); Chloride 106 mmol/L (98-107); Creatinine Clearance Estimated 48 mL/min (50-200); Estimated Glomerular Filt Rate 42 ml/min (>60); GFR (African American) 51 ML/MIN (>60); Glucose 389 mg/dl (74-100); Potassium 3.9 mmoL/L (3.5-5.1); Sodium 139 mmol/L (136-145); Total Protein,Serum 7.1 g/dl (6.3-8.2)
[2023-07-10 00:46] LABS: Anion Gap 31.9 mEq/L (5-15)
[2023-07-10 00:50] LABS: Carbon Dioxide < 5 mmol/L (22.0-30.0)
--- NOTE | 2023-07-10 00:52 | PC.NURSE ---
pt arrived to the floor @ 00:09
[2023-07-10 01:20] LABS: Reflex Lactic Add Lactic Reflex
[2023-07-10 01:36] LABS: Troponin I 2.67 ng/ml (0.00-0.034)
--- NOTE | 2023-07-10 02:12 | ECG_ITS ---
APPROVED REPORT Exam: Resting ECG HR:117 bpm ECG Measurements Heart Rate 117 AXES AK 135 P 63 QRSd 100 QRS 3 QT 436 T 77 QTc 505 Conclusion SINUS TACHYCARDIA LOW QRS VOLTAGE IN EXTREMITY LEADS [QRS DEFLECTION < 0.5 mV IN LIMB LEADS] SEPTAL MYOCARDIAL INFARCTION , PROBABLY RECENT [40+ ms Q WAVE IN V1/V2] ACUTE IN UNCONFIRMED REPORT Electronically signed by : Danyel Wolf MD 07/10/2023 16:33:09
--- NOTE | 2023-07-10 02:23 | PC.NURSE ---
Arnaldo Mohan APRN notified about critical EKG, provider at bedside now.
--- NOTE | 2023-07-10 02:31 | CA_ITS ---
APPROVED REPORT EXAM: Limited 2D, Doppler, and color-flow Echocardiogram with contrast [employer]: Claire Zabala CRT Ht: 5 ft 4 in Wt: 140lbs BSA: 1.68 BP: 106/76 mmHg Indications: Atrial Fibrillation I48.0 Echo Enhancing Agent Indication: Endocardial border delineation Agent(s) / Amount(s) Used: Definity 2 cc Comments: Limited images,poor windows M-Mode Dimensions LA Diam 2.37 cm (1.9-4.0) LVDd 4.30 cm (3.5-5.7) LVDs 2.98 cm (3.5-5.7) IVSd 1.28 cm (0.6-1.1) PWd 0.84 cm (0.6-1.1) EF (Teich) 58.60% FS 30.70% EDV (Teich) 83.10 mL ESV (Teich) 34.40 mL Pulmonary Valve PV Peak Velocity 108.0 (50-150 cm/s) Tricuspid Valve TR P. Velocity 60.00 cm/s RAP Estimate 10.00 mmHg RVSP 11.50 mmHg Other Information Study Quality: Fair Conclusion This is a limited TTE to evaluate for LVEF. Limited windows were obtained. Ultrasound enhancing agent was administered to better visualize the endocardial borders. The left ventricle is normal in size. There is normal LV wall thickness. The LV systolic function is severely reduced. There is akinesis of the septal and anteroseptal LV he, as well as the inferior and inferolateral LV he. LVEF is 20%. There is no thrombus visualized in the left ventricle after administration of ultrasound enhancing agent. Electronically signed by : Dolores Olea MD 07/10/2023 11:07:53
[2023-07-10] MEDS: FUROSEMIDE 40MG/4ML VIAL 40 MG IV (02:34)
[2023-07-10] MEDS: HEPARIN SODIUM 5,000 UNIT/ML VIAL 6400 UNIT IV (02:37)
[2023-07-10 02:44] LABS: Lactic Acid Follow Up (RFLX 1) 1.3 mmol/L (0.7-2.1)
[2023-07-10 02:51] LABS: Alanine Aminotransferase 24 U/L (12-78); Albumin Level 3.9 g/dl (3.5-5.0); Albumin/Globulin Ratio 1.3 (1.1-1.8); Alkaline Phosphatase 122 U/L (38-126); Aspartate Amino Transferase 48 U/L (14-36); Bilirubin,Total 0.4 mg/dl (0.2-1.3); Blood Urea Nitrogen 25 mg/dl (7-17); Calcium 8.7 mg/dl (8.4-10.2); Chloride 110 mmol/L (98-107); Creatinine Clearance Estimated 52 mL/min (50-200); Estimated Glomerular Filt Rate 46 ml/min (>60); GFR (African American) 56 ML/MIN (>60); Globulin 3.1 g/dL (1.3-3.2); Glucose 298 mg/dl (74-100); Potassium 3.4 mmoL/L (3.5-5.1); Sodium 141 mmol/L (136-145)
[2023-07-10 02:53] LABS: Anion Gap 29.4 mEq/L (5-15)
[2023-07-10 02:55] LABS: Carbon Dioxide < 5 mmol/L (22.0-30.0)
[2023-07-10] MEDS: KCl 10mEq/100ml 100 ML 100 MEQ IV ×5 (03:12→22:47)
[2023-07-10] MEDS: SODIUM BICARB 8.4% 50ML SYRINGE (CRASH CART) 50 MEQ IV (03:13)
[2023-07-10 04:32] LABS: Alanine Aminotransferase 26 U/L (12-78); Albumin Level 4.9 g/dl (3.5-5.0); Albumin/Globulin Ratio 1.4 (1.1-1.8); Alkaline Phosphatase 135 U/L (38-126); Aspartate Amino Transferase 55 U/L (14-36); Bilirubin,Total 0.6 mg/dl (0.2-1.3); Blood Urea Nitrogen 25 mg/dl (7-17); Calcium 9.2 mg/dl (8.4-10.2); Chloride 108 mmol/L (98-107); Creatinine Clearance Estimated 47 mL/min (50-200); Estimated Glomerular Filt Rate 42 ml/min (>60); GFR (African American) 51 ML/MIN (>60); Globulin 3.4 g/dL (1.3-3.2); Glucose 242 mg/dl (74-100); Potassium 3.4 mmoL/L (3.5-5.1); Sodium 144 mmol/L (136-145); Total Protein,Serum 8.3 g/dl (6.3-8.2)
[2023-07-10 04:44] LABS: Anion Gap 34.4 mEq/L (5-15)
[2023-07-10 04:45] LABS: Carbon Dioxide < 5 mmol/L (22.0-30.0); Troponin I 6.26 ng/ml (0.00-0.034)
--- NOTE | 2023-07-10 05:25 | PC.NURSE ---
Insulin gtt mixed w/ K. Yuliana RN verifying. 100 units Regular insulin in 100 cc bag of NS.
[2023-07-10] MEDS: INSULIN REGULAR, HUMAN 100 UNIT in 0.9 % SODIUM CHLORIDE 100 ML 7.20000000000000018 UNIT IV (05:52)
[2023-07-10] MEDS: POTASSIUM CHLORIDE IV ×3 (06:42→20:40)
[2023-07-10] MEDS: SODIUM BICARBONATE IV ×3 (06:42→20:40)
[2023-07-10] MEDS: SODIUM CHLORIDE IV (06:42)
[2023-07-10] MEDS: DEFINITY US ECHO CONTRAST 2ML INJ 2 MG IV (07:26)
[2023-07-10 07:28] LABS: POC Glucose,Bedside 217 (70-110)
[2023-07-10 07:28] LABS: POC Glucose,Bedside 154 (70-110)
[2023-07-10 07:28] LABS: POC Glucose,Bedside 136 (70-110)
[2023-07-10 07:28] LABS: POC Glucose,Bedside 328 (70-110)
[2023-07-10 07:28] LABS: POC Glucose,Bedside 86 (70-110)
[2023-07-10 07:29] LABS: POC Glucose,Bedside 85 (70-110)
[2023-07-10 07:48] LABS: Basophils # 0.3 K/mm3 (0-0.2); Basophils % 1.4 % (0.1-2.0); Eosinophils # 0.2 K/mm3 (0.0-0.4); Eosinophils % 0.8 % (0.1-12.0); Hematocrit 44.9 % (37.0-47.0); Lymphocytes # 2.9 K/mm3 (0.7-4.5); Lymphocytes % 15.1 % (10-50); Mean Corpuscular HGB Conc 33.2 g/dL (31.8-35.4); Mean Corpuscular Hemoglobin 31.3 pg (27.0-31.2); Mean Corpuscular Volume 94.2 fl (81-99); Mean Platelet Volume 8.6 fl (7.4-10.4); Monocytes # 2.1 K/mm3 (0.1-1.0); Monocytes % 10.7 % (1.7-9.3); Neutrophils # 13.9 K/mm3 (1.8-7.8); Neutrophils % 71.9 % (37.0-80.0); Platelet Count 179 K/mm3 (142-424); Red Blood Count 4.76 M/mm3 (4.20-5.40); Red Cell Distribution Width 13.4 % (11.5-17.5); White Blood Count 19.3 K/mm3 (4.8-10.8)
--- NOTE | 2023-07-10 07:50 | HMH.PHAINT1 ---
Pharmacy Intervention Comments: HOME MEDICATION LIST COMPLETED USING LIST FROM OUTPT PHARMACY AND PT INTERVIEW
[2023-07-10 08:03] LABS: MANUAL DIFFERENTIAL MANUAL DIFFERENTIAL (MANUAL DIFF)
[2023-07-10 08:42] LABS: Chloride 115 mmol/L (98-107); Sodium 143 mmol/L (136-145)
[2023-07-10 08:43] LABS: Potassium 3.8 mmoL/L (3.5-5.1)
[2023-07-10 08:46] LABS: Blood Urea Nitrogen 24 mg/dl (7-17); Creatinine Clearance Estimated 67 mL/min (50-200); Estimated Glomerular Filt Rate 65 ml/min (>60); GFR (African American) 78 ML/MIN (>60); Glucose 101 mg/dl (74-100)
[2023-07-10 08:47] LABS: Anion Gap 26.8 mEq/L (5-15); Carbon Dioxide 5 mmol/L (22.0-30.0); Magnesium 1.9 mg/dl (1.6-2.3)
[2023-07-10 08:50] LABS: Acetone, Serum (Rapid) Moderate (None Detect)
--- NOTE | 2023-07-10 10:07 | P.CONS_ITS ---
History of Present Illness History of present illness: Ms. Greenfield is a 58-year-old with reported history of diabetes mellitus, dyspnea presented today with worsening altered mentation and dizziness admitted and being managed for DKA and pulmonary was called for further evaluation and management. [facility] Disclaimer: The information contained in this section may have been updated after the patient was seen, as this information can be updated by other users. Medical History (Updated 07/10/23 @ 11:50 by Marilynn Murphy MD) Diabetes mellitus DKA (diabetic ketoacidosis) History of hypertension Multiple pulmonary nodules Pneumonia Surgical History History of delivery History of cholecystectomy Social History Smoking Status: Never smoker alcohol intake: never current occupational status: employed Travel in the last 8 weeks: None Review of Systems Review of Systems Review of systems (narrative): Limited review of systems secondary patient lethargic minimally responding to verbal stimuli Constitutional Comments: thristy *Cardiovascular Cardiovascular: Reports dyspnea *Respiratory Respiratory: Reports dyspnea *Gastrointestinal Gastrointestinal: Denies abdominal pain Pulmonology Exam Inpatient Vital signs and Labs for Last 24 Hours: Temp Pulse Resp BP Pulse Ox O2 Del Method 99.8 F H 122 H 17 120/73 99 Room Air 07/10/23 08:11 07/10/23 09:00 07/10/23 09:00 07/10/23 09:00 07/10/23 09:00 07/10/23 09:00 Laboratory Results - last 24 hr 07/09/23 21:15: WBC 23.0 H*, RBC 5.37, Hgb 17.1 H, Hct 55.9 H, MCV 104.1 H, MCH 31.8 H, MCHC 30.5 L, RDW 13.2, Plt Count 316, MPV 8.0, Neut % (Auto) 79.8, Lymph % (Auto) 12.4, Wilkin % (Auto) 6.3, Eos % (Auto) 0.6, Baso % (Auto) 0.9, Neut # (Auto) 18.3 H, Lymph # (Auto) 2.9, [place] # (Auto) 1.5 H, Eos # (Auto) 0.1, Baso # (Auto) 0.2, Total Counted 100, Neutrophils % (Manual) 81 H, Lymphocytes % (Manual) 12, Monocytes % (Manual) 7, Platelet Estimate Normal, RBC Morphology Not Reportable, Macrocytosis 1+, PT 12.8 H, INR 1.20 H, Sodium 135 L, Potassium 3.7, Chloride 102, Carbon Dioxide < 5 L*, Anion Gap 31.7 H, BUN 25 H, Creatinine 1.80 H, Estimated Creat Clear 35, Estimated GFR 29 L, Est GFR ( Amer) 35 L, Glucose 505 H*, Lactate 2.6 H, Calcium 9.2, Magnesium 2.7 H, Total Bilirubin 0.6, AST 46 H, ALT 29, Alkaline Phosphatase 131 H, Troponin I 1.25 H, Total Protein 7.8, Albumin 4.5, Globulin 3.3 H, Albumin/Globulin Ratio 1.4, Procalcitonin 0.666, Acetone Level Moderate 07/09/23 21:17: VBG pH 6.71 L, VBG pCO2 26.0 L, VBG pO2 62.8 H, VBG HCO3 3.2 L, VBG Total CO2 4.0 L, VBG O2 Saturation 87.6 H, VBG Base Excess -32.9 L 07/09/23 21:30: Urine Color Yellow, Urine Appearance Clear, Urine pH 6.0, Ur Specific [place] 1.025, Urine Protein 1+, Urine Glucose (UA) 3+, Urine Ketones 3+, Urine Blood 2+, Urine Nitrate Negative, Urine Bilirubin Negative, Urine Urob ilinogen 0.2, Ur Leukocyte Esterase Negative, Urine RBC Occasional, Urine WBC None, Ur Squamous Epith Cells Occasional, Urine Bacteria None 07/09/23 22:45: SARS-CoV-2 (PCR) Not detected, Influenza A Untype (PCR) Not detected, Influenza Type B (PCR) Not detected 07/09/23 22:49: Specimen Source Right radial, ABG pH 6.90 L*, ABG pCO2 13.4 L, ABG pO2 129.5 H, ABG HCO3 2.5 L, ABG Total CO2 3.0 L, ABG O2 Saturation 98, ABG Base Excess -30.4 L, Shabbir Test Acceptable 07/09/23 23:35: VBG pH 6.85 L, VBG pCO2 15.6 L, VBG pO2 64.6 H, VBG HCO3 2.6 L, VBG Total CO2 3.1 L, VBG O2 Saturation 90.1 H, VBG Base Excess -31.1 L 07/10/23 00:25: Sodium 139, Potassium 3.9, Chloride 106, Carbon Dioxide < 5 L*, Anion Gap 31.9 H, BUN 23 H, Creatinine 1.30 H D, Estimated Creat Clear 48, Estimated GFR 42 L, Est GFR ( Amer) 51 L D, Glucose 389 H D, Calcium 8.7, Total Bilirubin 0.6, AST 49 H, ALT 25, Alkaline Phosphatase 136 H, Troponin I 2.67 H, Total Protein 7.1, Albumin 4.1, Globulin 3.0, Albumin/Globulin Ratio 1.4, Acetone Level Large 07/10/23 01:01: POC Glucose 328 H* 07/10/23 02:22: Sodium 141, Potassium 3.4 L, Chloride 110 H, Carbon Dioxide < 5 L*, Anion Gap 29.4 H, BUN 25 H, Creatinine 1.20 H, Estimated Creat Clear 52, Estimated GFR 46 L, Est GFR ( Amer) 56 L, Glucose 298 H D, Lactate 1.3, C alcium 8.7, Total Bilirubin 0.4, AST 48 H, ALT 24, Alkaline Phosphatase 122, Total Protein 7.0, Albumin 3.9, Globulin 3.1, Albumin/Globulin Ratio 1.3 07/10/23 03:04: POC Glucose 217 H 07/10/23 04:10: Sodium 144, Potassium 3.4 L, Chloride 108 H, Carbon Dioxide < 5 L*, Anion Gap 34.4 H, BUN 25 H, Creatinine 1.30 H, Estimated Creat Clear 47, Estimated GFR 42 L, Est GFR ( Amer) 51 L, Glucose 242 H, Calcium 9.2, Total Bilirubin 0.6, AST 55 H, ALT 26, Alkaline Phosphatase 135 H, Troponin I 6.26 H, Total Protein 8.3 H, Albumin 4.9 D, Globulin 3.4 H, Albumin/Globulin Ratio 1.4 07/10/23 04:53: POC Glucose 154 H 07/10/23 05:50: POC Glucose 136 H 07/10/23 06:46: POC Glucose 86 07/10/23 07:19: POC Glucose 85 07/10/23 07:27: WBC 19.3 H, RBC 4.76, Hgb 15.0 D, Hct 44.9, MCV 94.2, MCH 31.3 H, MCHC 33.2, RDW 13.4, Plt Count 179 D, MPV 8.6, Neut % (Auto) 71.9, Lymph % (Auto) 15.1, Wilkin % (Auto) 10.7 H, Eos % (Auto) 0.8, Baso % (Auto) 1.4, Neut # (Auto) 13.9 H, Lymph # (Auto) 2.9, [place] # (Auto) 2.1 H, Eos # (Auto) 0.2, Baso # (Auto) 0.3 H 07/10/23 08:15: Sodium 143, Potassium 3.8, Chloride 115 H, Carbon Dioxide 5 L*, Anion Gap 26.8 H, BUN 24 H, Creatinine 0.90 D, Estimated Creat Clear 67, Estimated GFR 65, Est GFR ( Amer) 78 D, Glucose 101 H D, Calcium 8.0 L, Magnesium 1.9 D, Acetone Level Moderate I & O for Labs for Last 24 Hours: Intake & Output 07/07/23 07/08/23 07/09/23 07/10/23 23:59 23:59 23:59 23:59 Intake Total 2004.574 / 2004.574 Output Total 1250 / 2450 5450 / 5450 Balance -1250 / -2450 -3444.426 / -3444.426 Weight 140 lb 136 lb 8 oz Constitutional: Present severe distress Head: Present normocephalic and atraumatic ENT: Present normal exam, normal oropharynx and mucous membranes moist Neck: Present normal inspection and full ROM Respiratory: Present respiratory distress and able to speak in complete sentences; Absent wheezes or crackles Cardiac: Present S1/S2, Tachycardia and radial pulses present GI: Present soft and distention; Absent tenderness or guarding Rectal (female): Present deferred (female): Present deferred Skin: Present intact; Absent cyanosis or jaundice Neuro: Absent alert, awake or oriented x 3 Extremities: Present normal inspection; Absent clubbing or cyanosis Psychiatric: Present normal affect and cooperative Meds Home Medications and Allergies Home Medications Medication Instructions Recorded Confirmed Type empagliflozin 25 mg tablet 25 mg PO DAILY 05/19/21 07/10/23 History (Jardiance) gabapentin 400 mg capsule 400 mg PO TID 05/19/21 07/10/23 History fenofibrate nanocrystallized 145 145 mg PO DAILY 05/22/23 07/10/23 History mg tablet pravastatin 40 mg tablet 40 mg PO DAILY 05/22/23 07/10/23 History meclizine 25 mg tablet 25 mg PO Q6HP PRN diziness #30 tabs 07/09/23 07/10/23 Rx metformin 500 mg tablet 500 mg PO BID 07/10/23 07/10/23 History New Prescriptions to Start Prescriptions: Allergies Allergy/AdvReac Type Severity Reaction Status Date / Time No Known Allergies Allergy Verified 07/09/23 09:36 Results Laboratory Findings 07/10/23 07:27 07/10/23 08:15 ABG ABG pH 6.90 mmol/L (7.35-7.45) L* 07/09/23 22:49 ABG pCO2 13.4 mmhg (35.0-45.0) L 07/09/23 22:49 ABG pO2 129.5 mmhg (80-100) H 07/09/23 22:49 ABG O2 Saturation 98 % (90-100) 07/09/23 22:49 PT/INR, D-dimer PT 12.8 seconds (10.1-12.5) H 07/09/23 21:15 INR 1.20 (0.9-1.1) H 07/09/23 21:15 Abnormal lab findings: Abnormal Labs 07/09/23 07/09/23 07/09/23 21:15 21:17 22:49 WBC 23.0 H* Hgb 17.1 H Hct 55.9 H MCV 104.1 H MCH 31.8 H MCHC 30.5 L [place] % (Auto) Neut # (Auto) 18.3 H [place] # (Auto) 1.5 H Baso # (Auto) Neutrophils % (Manual) 81 H PT 12.8 H INR 1.20 H ABG pH 6.90 L* ABG pCO2 13.4 L ABG pO2 129.5 H ABG HCO3 2.5 L ABG Total CO2 3.0 L ABG Base Excess -30.4 L VBG pH 6.71 L VBG pCO2 26.0 L VBG pO2 62.8 H VBG HCO3 3.2 L VBG Total CO2 4.0 L VBG O2 Saturation 87.6 H VBG Base Excess -32.9 L Sodium 135 L Potassium Chloride Carbon Dioxide < 5 L* Anion Gap 31.7 H BUN 25 H Creatinine 1.80 H Estimated GFR 29 L Est GFR ( Amer) 35 L Glucose 505 H* POC Glucose Lactate 2.6 H Calcium Magnesium 2.7 H AST 46 H Alkaline Phosphatase 131 H Troponin I 1.25 H Total Protein Globulin 3.3 H 07/09/23 07/10/23 07/10/23 23:35 00:25 01:01 WBC Hgb Hct MCV MCH MCHC [place] % (Auto) Neut # (Auto) [place] # (Auto) Baso # (Auto) Neutrophils % (Manual) PT INR ABG pH ABG pCO2 ABG pO2 ABG HCO3 ABG Total CO2 ABG Base Excess VBG pH 6.85 L VBG pCO2 15.6 L VBG pO2 64.6 H VBG HCO3 2.6 L VBG Total CO2 3.1 L VBG O2 Saturation 90.1 H VBG Base Excess -31.1 L Sodium Potassium Chloride Carbon Dioxide < 5 L* Anion Gap 31.9 H BUN 23 H Creatinine 1.30 H D Estimated GFR 42 L Est GFR ( Amer) 51 L D Glucose 389 H D POC Glucose 328 H* Lactate Calcium Magnesium AST 49 H Alkaline Phosphatase 136 H Troponin I 2.67 H Total Protein Globulin 07/10/23 07/10/23 07/10/23 02:22 03:04 04:10 WBC Hgb Hct MCV MCH MCHC [place] % (Auto) Neut # (Auto) [place] # (Auto) Baso # (Auto) Neutrophils % (Manual) PT INR ABG pH ABG pCO2 ABG pO2 ABG HCO3 ABG Total CO2 ABG Base Excess VBG pH VBG pCO2 VBG pO2 VBG HCO3 VBG Total CO2 VBG O2 Saturation VBG Base Excess Sodium Potassium 3.4 L 3.4 L Chloride 110 H 108 H Carbon Dioxide < 5 L* < 5 L* Anion Gap 29.4 H 34.4 H BUN 25 H 25 H Creatinine 1.20 H 1.30 H Estimated GFR 46 L 42 L Est GFR ( Amer) 56 L 51 L Glucose 298 H D 242 H POC Glucose 217 H Lactate Calcium Magnesium AST 48 H 55 H Alkaline Phosphatase 135 H Troponin I 6.26 H Total Protein 8.3 H Globulin 3.4 H 07/10/23 07/10/23 07/10/23 04:53 05:50 07:27 WBC 19.3 H Hgb Hct MCV MCH 31.3 H MCHC [place] % (Auto) 10.7 H Neut # (Auto) 13.9 H [place] # (Auto) 2.1 H Baso # (Auto) 0.3 H Neutrophils % (Manual) PT INR ABG pH ABG pCO2 ABG pO2 ABG HCO3 ABG Total CO2 ABG Base Excess VBG pH VBG pCO2 VBG pO2 VBG HCO3 VBG Total CO2 VBG O2 Saturation VBG Base Excess Sodium Potassium Chloride Carbon Dioxide Anion Gap BUN Creatinine Estimated GFR Est GFR ( Amer) Glucose POC Glucose 154 H 136 H Lactate Calcium Magnesium AST Alkaline Phosphatase Troponin I Total Protein Globulin 07/10/23 08:15 WBC Hgb Hct MCV MCH MCHC [place] % (Auto) Neut # (Auto) [place] # (Auto) Baso # (Auto) Neutrophils % (Manual) PT INR ABG pH ABG pCO2 ABG pO2 ABG HCO3 ABG Total CO2 ABG Base Excess VBG pH VBG pCO2 VBG pO2 VBG HCO3 VBG Total CO2 VBG O2 Saturation VBG Base Excess Sodium Potassium Chloride 115 H Carbon Dioxide 5 L* Anion Gap 26.8 H BUN 24 H Creatinine Estimated GFR Est GFR ( Amer) Glucose 101 H D POC Glucose Lactate Calcium 8.0 L Magnesium AST Alkaline Phosphatase Troponin I Total Protein Globulin Assessment and Plan *Assessment and plan (1) DKA (diabetic ketoacidosis): Status: Acute Category: Medical Code(s): E11.10 - Type 2 diabetes mellitus with ketoacidosis without coma (2) Multiple pulmonary nodules: Status: Acute Category: Medical Code(s): R91.8 - Other nonspecific abnormal finding of lung field (3) Pneumonia: Status: Acute Category: Medical Code(s): J18.9 - Pneumonia, unspecified organism Plan Ms. Greenfield is a 58-year-old with reported history of diabetes mellitus, dyspnea presented today with worsening altered mentation and dizziness admitted and being managed for DKA and pulmonary was called for further evaluation and management. Significant leukocytosis upon admission improving. VBG and ABG upon admission showed severe metabolic acidosis with a pH of 6.90 with a pCO2 of 13.4 with a bicarb of [address] chest upon admission bilateral round nodules some of them are partially calcified. No prior imaging available to review. Also noted to have groundglass opacities. COVID-19 and flu PCR panel negative. Patient was initiated on DKA protocol along with vancomycin and Unasyn. Percent serum glucose less than 150. Labs DKA noted will continue to have anion gap and continue to have severe metabolic acidosis. Plan: -Recommend strict I's and O's -Recommend to continue insulin drip at current rate of 2 units/h -Recommend to initiate D5 half-normal saline along with 50 units of sodium bicarb and 20 units of KCl per 1 L at a rate of 150 mL/hr -Recommend to follow-up blood glucose and determine the need for D10 half-normal saline -Recommend to follow with BMP and VBG every 4 hours -Continue current antibiotics pending culture results -Continue oxygen supplementation to maintain O2 saturation goal of 90% and above. DuoNebs every 6 hours on as-needed basis. # For the noted pulmonary nodules in the lung which are likely from a prior granulomatous disease, will be followed as an outpatient basis with follow-up imaging to determine the stability.
[2023-07-10 10:16] LABS: POC Glucose,Bedside 126 (70-110)
[2023-07-10 10:27] LABS: Lymphocytes % 22 % (10-50); Monocytes % 10 % (2-9); Neutrophils % 68 % (42-76); Platelet Estimate Normal; RBC Morphology Normal; Total Cells Counted 100
[2023-07-10 10:59] LABS: POC Glucose,Bedside 118 (70-110)
[2023-07-10] MEDS: NACL IV ×2 (11:51→20:40)
[2023-07-10] MEDS: DEX IV ×2 (11:51→20:40)
--- NOTE | 2023-07-10 12:22 | P.CONCA_ITS ---
History of Present Illness History of Present Illness Consult date: 07/10/23 Requesting physician: Leobardo Mir Chief complaint: DKA, NSTEMI Additional Medical History:: 1. Diabetes mellitus A. DKA, 07/10/2023 2. Cardiomyopathy A. EF 20% with akinesis of the septal and anteroseptal he, echo, 07/10/2023 3. Hyperlipidemia History of present illness: This is a 58-year-old female PMHx of NIDDM, HLD, presented to the emergency department initially for altered mental status weakness and dizziness. History obtained form ED and patient's . Per patient's she is given a 3-d ay history of progressive nausea vomiting and generalized weakness. Patient did go to work yesterday but did not feel well. Patient reportedly visited the local today for her symptoms and had a comprehensive respiratory panel that was negative. She then returned home. She was found by a family member disoriented weak barely responsive but awake and maintaining her airway. She cannot walk unassisted. Admitted for treatment. Above per Arnaldo Mohan APRN for hospitalist service Patient's and son are in the room this morning. Patient still unable to awaken enough to answer questions. He does confirm events as noted above. Cardiology consulted for elevated troponins [facility] Disclaimer: The information contained in this section may have been updated after the patient was seen, as this information can be updated by other users. Medical History (Updated 07/10/23 @ 12:29 by JESSICA Jean) Diabetes mellitus DKA (diabetic ketoacidosis) History of hypertension Multiple pulmonary nodules Pneumonia Surgical History History of delivery History of cholecystectomy Social History Smoking Status: Never smoker alcohol intake: never current occupational status: employed Travel in the last 8 weeks: None Review of Systems Review of Systems Review of systems:: unable to obtain Exam Data for Last 24 hours Vital signs and Labs for Last 24 Hours: Temp Pulse Resp BP Pulse Ox O2 Del Method 99.0 F 123 H 18 117/69 98 Room Air 07/10/23 11:58 07/10/23 12:00 07/10/23 12:00 07/10/23 12:00 07/10/23 12:00 07/10/23 12:00 Laboratory Results - last 24 hr 07/09/23 21:15: WBC 23.0 H*, RBC 5.37, Hgb 17.1 H, Hct 55.9 H, MCV 104.1 H, MCH 31.8 H, MCHC 30.5 L, RDW 13.2, Plt Count 316, MPV 8.0, Neut % (Auto) 79.8, Lymph % (Auto) 12.4, [place] % (Auto) 6.3, Eos % (Auto) 0.6, Baso % (Auto) 0.9, Neut # (Auto) 18.3 H, Lymph # (Auto) 2.9, [place] # (Auto) 1.5 H, Eos # (Auto) 0.1, Baso # (Auto) 0.2, Total Counted 100, Neutrophils % (Manual) 81 H, Lymphocytes % (Manual) 12, Monocytes % (Manual) 7, Platelet Estimate Normal, RBC Morphology Not Reportable, Macrocytosis 1+, PT 12.8 H, INR 1.20 H, Sodium 135 L, Potassium 3.7, Chloride 102, Carbon Dioxide < 5 L*, Anion Gap 31.7 H, BUN 25 H, Creatinine 1.80 H, Estimated Creat Clear 35, Estimated GFR 29 L, Est GFR ( Amer) 35 L, Glucose 505 H*, Lactate 2.6 H, Calcium 9.2, Magnesium 2.7 H, Total Bilirubin 0.6, AST 46 H, ALT 29, Alkaline Phosphatase 131 H, Troponin I 1.25 H, Total Protein 7.8, Albumin 4.5, Globulin 3.3 H, Albumin/Globulin Ratio 1.4, Procalcitonin 0.666, Acetone Level Moderate 07/09/23 21:17: VBG pH 6.71 L, VBG pCO2 26.0 L, VBG pO2 62.8 H, VBG HCO3 3.2 L, VBG Total CO2 4.0 L, VBG O2 Saturation 87.6 H, VBG Base Excess -32.9 L 07/09/23 21:30: Urine Color Yellow, Urine Appearance Clear, Urine pH 6.0, Ur Specific [place] 1.025, Urine Protein 1+, Urine Glucose (UA) 3+, Urine Ketones 3+, Urine Blood 2+, Urine Nitrate Negative, Urine Bilirubin Negative, Urine Urobilinogen 0.2, Ur Leukocyte Esterase Negative, Urine RBC Occasional, Urine WBC None, Ur Squamous Epith Cells Occasional, Urine Bacteria None 07/09/23 22:45: SARS-CoV-2 (PCR) Not detected, Influenza A Untype (PCR) Not detected, Influenza Type B (PCR) Not detected 07/09/23 22:49: Specimen Source Right radial, ABG pH 6.90 L*, ABG pCO2 13.4 L, ABG pO2 129.5 H, ABG HCO3 2.5 L, ABG Total CO2 3.0 L, ABG O2 Saturation 98, ABG Base Excess -30.4 L, Shabbir Test Acceptable 07/09/23 23:35: VBG pH 6.85 L, VBG pCO2 15.6 L, VBG pO2 64.6 H, VBG HCO3 2.6 L, VBG Total CO2 3.1 L, VBG O2 Saturation 90.1 H, VBG Base Excess -31.1 L 07/10/23 00:25: Sodium 139, Potassium 3.9, Chloride 106, Carbon Dioxide < 5 L*, Anion Gap 31.9 H, BUN 23 H, Creatinine 1.30 H D, Estimated Creat Clear 48, Estimated GFR 42 L, Est GFR ( Amer) 51 L D, Glucose 389 H D, Calcium 8.7, Total Bilirubin 0.6, AST 49 H, ALT 25, Alkaline Phosphatase 136 H, Troponin I 2.67 H, Total Protein 7.1, Albumin 4.1, Globulin 3.0, Albumin/Globulin Ratio 1.4, Acetone Level Large 07/10/23 01:01: POC Glucose 328 H* 07/10/23 02:22: Sodium 141, Potassium 3.4 L, Chloride 110 H, Carbon Dioxide < 5 L*, Anion Gap 29.4 H, BUN 25 H, Creatinine 1.20 H, Estimated Creat Clear 52, Estimated GFR 46 L, Est GFR ( Amer) 56 L, Glucose 298 H D, Lactate 1.3, Calcium 8.7, Total Bilirubin 0.4, AST 48 H, ALT 24, Alkaline Phosphatase 122, Total Protein 7.0, Albumin 3.9, Globulin 3.1, Albumin/Globulin Ratio 1.3 07/10/23 03:04: POC Glucose 217 H 07/10/23 04:10: Sodium 144, Potassium 3.4 L, Chloride 108 H, Carbon Dioxide < 5 L*, Anion Gap 34.4 H, BUN 25 H, Creatinine 1.30 H, Estimated Creat Clear 47, Estimated GFR 42 L, Est GFR ( Amer) 51 L, Glucose 242 H, Calcium 9.2, Total Bilirubin 0.6, AST 55 H, ALT 26, Alkaline Phosphatase 135 H, Troponin I 6.26 H, Total Protein 8.3 H, Albumin 4.9 D, Globulin 3.4 H, Albumin/Globulin Ratio 1.4 07/10/23 04:53: POC Glucose 154 H 07/10/23 05:50: POC Glucose 136 H 07/10/23 06:46: POC Glucose 86 07/10/23 07:19: POC Glucose 85 07/10/23 07:27: WBC 19.3 H, RBC 4.76, Hgb 15.0 D, Hct 44.9, MCV 94.2, MCH 31.3 H, MCHC 33.2, RDW 13.4, Plt Count 179 D, MPV 8.6, Neut % (Auto) 71.9, Lymph % (Auto) 15.1, [place] % (Auto) 10.7 H, Eos % (Auto) 0.8, Baso % (Auto) 1.4, Neut # (Auto) 13.9 H, Lymph # (Auto) 2.9, [place] # (Auto) 2.1 H, Eos # (Auto) 0.2, Baso # (Auto) 0.3 H, Total Counted 100, Neutrophils % (Manual) 68, Lymphocytes % (Manual) 22, Monocytes % (Manual) 10 H, Platelet Estimate Normal, RBC Morphology Normal 07/10/23 08:15: Sodium 143, Potassium 3.8, Chloride 115 H, Carbon Dioxide 5 L*, Anion Gap 26.8 H, BUN 24 H, Creatinine 0.90 D, Estimated Creat Clear 67, Estimated GFR 65, Est GFR ( Amer) 78 D, Glucose 101 H D, Calcium 8.0 L, Magnesium 1.9 D, Acetone Level Moderate 07/10/23 09:58: POC Glucose 126 H 07/10/23 10:51: POC Glucose 118 H I & O for Last 24 hours: Intake & Output 01/30/24 07/09/23 07/10/23 07/11/23 11:59 11:59 11:59 11:59 Intake Total 2007.694 / 2007.69 Output Total 0 / 6699 Balance -4691.306 / -4691.306 Weight 136 lb 8 oz Constitutional Constitutional: no acute distress and somnolent *Routine Respiratory Exam Respiratory: Present rales and diminished air movement *Routine Cardiovascular Exam Cardiovascular: Present RRR *Routine Neurological Exam Neurological: Present altered mental status; Absent alert or oriented X3 Meds Home Medications and Allergies Home Medications Medication Instructions Recorded Confirmed Type empagliflozin 25 mg tablet 25 mg PO DAILY 05/19/21 07/10/23 History (Jardiance) gabapentin 400 mg capsule 400 mg PO TID 05/19/21 07/10/23 History fenofibrate nanocrystallized 145 145 mg PO DAILY 05/22/23 07/10/23 History mg tablet pravastatin 40 mg tablet 40 mg PO DAILY 05/22/23 07/10/23 History meclizine 25 mg tablet 25 mg PO Q6HP PRN diziness #30 tabs 07/09/23 07/10/23 Rx metformin 500 mg tablet 500 mg PO BID 07/10/23 07/10/23 History New Prescriptions to Start Prescriptions: Allergies Allergy/AdvReac Type Severity Reaction Status Date / Time No Known Allergies Allergy Verified 07/09/23 09:36 Assessment and Plan *Assessment and plan (1) Pneumonia: Status: Acute Qualifiers: Laterality: unspecified laterality Lung location: unspecified part of lung Pneumonia type: due to unspecified organism Qualified Code(s): J18.9 - Pneumonia, unspecified organism Category: Medical Code(s): J18.9 - Pneumonia, unspecified organism (2) Multiple pulmonary nodules: Status: Acute Category: Medical Code(s): R91.8 - Other nonspecific abnormal finding of lung field (3) DKA (diabetic ketoacidosis): Status: Acute Qualifiers: Diabetes mellitus complication detail: without coma Diabetes mellitus type: type 2 Qualified Code(s): E11.10 - Type 2 diabetes mellitus with ketoacidosis without coma Category: Medical Code(s): E11.10 - Type 2 diabetes mellitus with ketoacidosis without coma (4) AMS (altered mental status): Status: Acute Qualifiers: Altered mental status type: somnolence Qualified Code(s): R40.0 - Somnolence Category: Medical Code(s): R41.82 - Altered mental status, unspecified (5) NSTEMI (non-ST elevated myocardial infarction): Status: Acute Category: Medical Code(s): I21.4 - Non-ST elevation (NSTEMI) myocardial infarction (6) HFrEF (heart failure with reduced ejection fraction): Status: Acute Category: Medical Code(s): I50.20 - Unspecified systolic (congestive) heart failure Plan 1. DKA -on insulin gtt, IVF with dextrose -per Hospitalist -anion gap initially 31 and now down to 26 2. NSTEMI/cardiomyopathy in setting of DKA with pH of 6.9 -EF 20% with akinesis of the septal and anteroseptal LV he -Troponin max 6.26 -Add aspirin and statin -will not use jardiance due to DKA -hold off on entresto and BB at this time until mental status improves 3. Pneumonia with initial white count 23K -On antibiotic therapy -Pulmonary following 4. Altered mental status due to multiple issues as noted above Will try to add aspirin and statin Further evaluation and treatment on hold until mental status improves.
[2023-07-10 12:39] LABS: VBG Base Excess -16.2 mmol/L (-2.4-2.3); VBG HCO3 10.2 mmol/L (23-30); VBG PCO2 21.4 mmol/L (35-51); VBG PO2 71.9 mmol/L (28-40); VBG Total CO2 10.9 mmol/L (23-27)
[2023-07-10 13:14] LABS: Blood Urea Nitrogen 22 mg/dl (7-17); Calcium 8.1 mg/dl (8.4-10.2); Chloride 114 mmol/L (98-107); Creatinine Clearance Estimated 67 mL/min (50-200); Estimated Glomerular Filt Rate 65 ml/min (>60); GFR (African American) 78 ML/MIN (>60); Glucose 134 mg/dl (74-100); Sodium 146 mmol/L (136-145)
[2023-07-10 13:17] LABS: Carbon Dioxide 9 mmol/L (22.0-30.0)
[2023-07-10 13:18] LABS: POC Glucose,Bedside 128 (70-110)
[2023-07-10 13:18] LABS: POC Glucose,Bedside 106 (70-110)
[2023-07-10 13:18] LABS: POC Glucose,Bedside 150 (70-110)
[2023-07-10 14:19] LABS: POC Glucose,Bedside 150 (70-110)
[2023-07-10 14:25] LABS: Troponin I 8.07 ng/ml (0.00-0.034)
--- NOTE | 2023-07-10 14:49 | P.PN_ITS ---
Subjective *Date: 07/10/23 *Time: 14:49 Interval history: Patient is seen and evaluated at the bedside, Patient is not communicating, She is lethargic, family is at bedside, and updated them on plan of care Exam Data for Last 24 hours Vital signs and Labs for Last 24 Hours: Temp Pulse Resp BP Pulse Ox O2 Del Method 99.0 F 123 H 18 110/65 97 Room Air 07/10/23 11:58 07/10/23 14:00 07/10/23 14:00 07/10/23 14:00 07/10/23 14:00 07/10/23 14:00 Laboratory Results - last 24 hr 07/09/23 21:15: WBC 23.0 H*, RBC 5.37, Hgb 17.1 H, Hct 55.9 H, MCV 104.1 H, MCH 31.8 H, MCHC 30.5 L, RDW 13.2, Plt Count 316, MPV 8.0, Neut % (Auto) 79.8, Lymph % (Auto) 12.4, [place] % (Auto) 6.3, Eos % (Auto) 0.6, Baso % (Auto) 0.9, Neut # (Auto) 18.3 H, Lymph # (Auto) 2.9, [place] # (Auto) 1.5 H, Eos # (Auto) 0.1, Baso # (Auto) 0.2, Total Counted 100, Neutrophils % (Manual) 81 H, Lymphocytes % (Manual) 12, Monocytes % (Manual) 7, Platelet Estimate Normal, RBC Morphology Not Reportable, Macrocytosis 1+, PT 12.8 H, INR 1.20 H, Sodium 135 L, Potassium 3.7, Chloride 102, Carbon Dioxide < 5 L*, Anion Gap 31.7 H, BUN 25 H, Creatinine 1.80 H, Estimated Creat Clear 35, Estimated GFR 29 L, Est GFR ( Amer) 35 L, Glucose 505 H*, Lactate 2.6 H, Calcium 9.2, Magnesium 2.7 H, Total Bilirubin 0.6, AST 46 H, ALT 29, Alkaline Phosphatase 131 H, Troponin I 1.25 H, Total Protein 7.8, Albumin 4.5, Globulin 3.3 H, Albumin/Globulin Ratio 1.4, Procalcitonin 0.666, Acetone Level Moderate 07/09/23 21:17: VBG pH 6.71 L, VBG pCO2 26.0 L, VBG pO2 62.8 H, VBG HCO3 3.2 L, VBG Total CO2 4.0 L, VBG O2 Saturation 87.6 H, VBG Base Excess -32.9 L 07/09/23 21:30: Urine Color Yellow, Urine Appearance Clear, Urine pH 6.0, Ur Specific [place] 1.025, Urine Protein 1+, Urine Glucose (UA) 3+, Urine Ketones 3+, Urine Blood 2+, Urine Nitrate Negative, Urine Bilirubin Negative, Urine Urobilinogen 0.2, Ur Leukocyte Esterase Negative, Urine RBC Occasional, Urine WBC None, Ur Squamous Epith Cells Occasional, Urine Bacteria None 07/09/23 22:45: SARS-CoV-2 (PCR) Not detected, Influenza A Untype (PCR) Not detected, Influenza Type B (PCR) Not detected 07/09/23 22:49: Specimen Source Right radial, ABG pH 6.90 L*, ABG pCO2 13.4 L, ABG pO2 129.5 H, ABG HCO3 2.5 L, ABG Total CO2 3.0 L, ABG O2 Saturation 98, ABG Base Excess -30.4 L, Shabbir Test Acceptable 07/09/23 23:35: VBG pH 6.85 L, VBG pCO2 15.6 L, VBG pO2 64.6 H, VBG HCO3 2.6 L, VBG Total CO2 3.1 L, VBG O2 Saturation 90.1 H, VBG Base Excess -31.1 L 07/10/23 00:25: Sodium 139, Potassium 3.9, Chloride 106, Carbon Dioxide < 5 L*, Anion Gap 31.9 H, BUN 23 H, Creatinine 1.30 H D, Estimated Creat Clear 48, Estimated GFR 42 L, Est GFR ( Amer) 51 L D, Glucose 389 H D, Calcium 8.7, Total Bilirubin 0.6, AST 49 H, ALT 25, Alkaline Phosphatase 136 H, Troponin I 2.67 H, Total Protein 7.1, Albumin 4.1, Globulin 3.0, Albumin/Globulin Ratio 1.4, Acetone Level Large 07/10/23 01:01: POC Glucose 328 H* 07/10/23 02:22: Sodium 141, Potassium 3.4 L, Chloride 110 H, Carbon Dioxide < 5 L*, Anion Gap 29.4 H, BUN 25 H, Creatinine 1.20 H, Estimated Creat Clear 52, Estimated GFR 46 L, Est GFR ( Amer) 56 L, Glucose 298 H D, Lactate 1.3, Calcium 8.7, Total Bilirubin 0.4, AST 48 H, ALT 24, Alkaline Phosphatase 122, Total Protein 7.0, Albumin 3.9, Globulin 3.1, Albumin/Globulin Ratio 1.3 07/10/23 03:04: POC Glucose 217 H 07/10/23 04:10: Sodium 144, Potassium 3.4 L, Chloride 108 H, Carbon Dioxide < 5 L*, Anion Gap 34.4 H, BUN 25 H, Creatinine 1.30 H, Estimated Creat Clear 47, Estimated GFR 42 L, Est GFR ( Amer) 51 L, Glucose 242 H, Calcium 9.2, Total Bilirubin 0.6, AST 55 H, ALT 26, Alkaline Phosphatase 135 H, Troponin I 6.26 H, Total Protein 8.3 H, Albumin 4.9 D, Globulin 3.4 H, Albumin/Globulin Ratio 1.4 07/10/23 04:53: POC Glucose 154 H 07/10/23 05:50: POC Glucose 136 H 07/10/23 06:46: POC Glucose 86 07/10/23 07:19: POC Glucose 85 07/10/23 07:27: WBC 19.3 H, RBC 4.76, Hgb 15.0 D, Hct 44.9, MCV 94.2, MCH 31.3 H, MCHC 33.2, RDW 13.4, Plt Count 179 D, MPV 8.6, Neut % (Auto) 71.9, Lymph % (Auto) 15.1, [place] % (Auto) 10.7 H, Eos % (Auto) 0.8, Baso % (Auto) 1.4, Neut # (Auto) 13.9 H, Lymph # (Auto) 2.9, [place] # (Auto) 2.1 H, Eos # (Auto) 0.2, Baso # (Auto) 0.3 H, Total Counted 100, Neutrophils % (Manual) 68, Lymphocytes % (Manual) 22, Monocytes % (Manual) 10 H, Platelet Estimate Normal, RBC Morphology Normal 07/10/23 08:15: Sodium 143, Potassium 3.8, Chloride 115 H, Carbon Dioxide 5 L*, Anion Gap 26.8 H, BUN 24 H, Creatinine 0.90 D, Estimated Creat Clear 67, Estimated GFR 65, Est GFR ( Amer) 78 D, Glucose 101 H D, Calcium 8.0 L, Magnesium 1.9 D, Acetone Level Moderate 07/10/23 08:57: POC Glucose 106 07/10/23 09:58: POC Glucose 126 H 07/10/23 10:51: POC Glucose 118 H 07/10/23 11:58: POC Glucose 128 H 07/10/23 12:09: Sodium 146 H, Potassium 3.0 L D, Chloride 114 H, Carbon Dioxide 9 L* D, Anion Gap 26.0 H, BUN 22 H, Creatinine 0.90, Estimated Creat Clear 67, Estimated GFR 65, Est GFR ( Amer) 78, Glucose 134 H D, Calcium 8.1 L 07/10/23 12:10: Troponin I 8.07 H 07/10/23 12:18: VBG pH 7.30 L, VBG pCO2 21.4 L, VBG pO2 71.9 H, VBG HCO3 10.2 L, VBG Total CO2 10.9 L, VBG O2 Saturation 96.0 H, VBG Base Excess -16.2 L 07/10/23 13:10: POC Glucose 150 H 07/10/23 14:09: POC Glucose 150 H I & O for Last 24 hours: Intake & Output 07/07/23 07/08/23 07/09/23 07/10/23 23:59 23:59 23:59 23:59 Intake Total 694 / Output Total 1250 / 2450 5450 / 5450 Balance -1250 / -2450 -3441.306 / -3441.306 Weight 63.503 kg 61.915 kg Constitutional Constitutional: no acute distress *Routine HEENT Exam Head: Present normocephalic Eye: Present EOMI and PERRL ENT: Present mucous membranes moist *Routine Neck Exam Neck: Present supple; Absent lymphadenopathy *Routine Respiratory Exam Respiratory: Present CTA bilaterally *Routine Cardiovascular Exam Cardiovascular: Present RRR *Routine Abdominal Exam Abdominal: Present soft and normoactive bowel sounds; Absent tenderness *Routine Extremities Exam Extremities: Absent cyanosis, clubbing or edema *Routine Skin Exam Skin: Present warm; Absent rash *Routine Neurological Exam Neurological: Present alert Comments: AXA X 0, lethargic Assessment and Plan *Assessment and plan (1) DKA, type 2: Status: Acute Qualifiers: Diabetes mellitus complication detail: without coma Qualified Code(s): E11.10 - Type 2 diabetes mellitus with ketoacidosis without coma Category: Medical Code(s): E11.10 - Type 2 diabetes mellitus with ketoacidosis without coma (2) SIRS without infection with organ dysfunction: Status: Acute Category: Medical Code(s): R65.11 - Systemic inflammatory response syndrome (SIRS) of non-infectious origin with acute organ dysfunction (3) Hypothermia: Status: Acute Qualifiers: Encounter type: initial encounter Qualified Code(s): T68.XXXA - Hypothermia, initial encounter Category: Medical Code(s): T68.XXXA - Hypothermia, initial encounter (4) Elevated troponin: Status: Acute Category: Medical Code(s): R79.89 - Other specified abnormal findings of blood chemistry Plan 58-year-old female PMHx of NIDDM, HLD, presented to the emergency department initially for altered mental status weakness and dizziness. History obtained form ED and patient's . Per patient's she is given a 3-day history of progressive nausea vomiting and generalized weakness. On arrival patient visible sick. remains alert and oriented, and able to answer question appropriately. Presented tachycardic and hyporthermic. initial workup reviewed showed leukocytosis with an absolute neutrophil count of 18.3, INR is 1.2 VBG shows pH 6.71 with a pCO2 of 26. CMP shows a sodium 135 potassium 3.7 CO2 that is undetectable and anion gap of 31.7 creatinine 1.8 with a GFR of 29. EKG initially was afib with RVR. converted to ST. troponin was 1.26. Discussed with ED provider. Patient admitted to ICU. plan as follow: -DKA, type 2 without coma: SIRS with organ dysfunction, no clear sources of infection: Admit patient for ICU. On continuous monitoring per unit CMP q. 2h 0.45 normal saline with 50 mEq of bicarb started at ER Another 50 mEq ordered On continuous insulin infusion Normal saline at 125 Watch for electrolyte imbalance. Replace by protocol Potassium and sodium are normalized UA negative Blood culture pending CT of the abdomen negative Chest x-ray reviewed. Suspected virus infection versus reactive pneumonitis Respiratory panel negative Pulmonology/critical care consult -Hypothermia: Likely secondary to above Core body temperature of 95.3. On huggy bear. Warmed infusion. -Elevated troponin: EKG stat. Shows sinus tach, with nonspecific ST changes cardiology consulted. Order to obtained. Heparin bolus given. Echo ordered One-time Lasix ordered Patient chest pain-free SCD for DVT prophylaxis. Protonix for GI bleed protection Full code continue treatment for DKA and Cardiology/pulmonary follow up
[2023-07-10 14:58] LABS: POC Glucose,Bedside 155 (70-110)
[2023-07-10 16:08] LABS: POC Glucose,Bedside 154 (70-110)
[2023-07-10 18:42] LABS: Chloride 117 mmol/L (98-107); Sodium 145 mmol/L (136-145)
[2023-07-10 18:45] LABS: Anion Gap 19.6 mEq/L (5-15); Blood Urea Nitrogen 21 mg/dl (7-17); Carbon Dioxide 11 mmol/L (22.0-30.0); Creatinine Clearance Estimated 76 mL/min (50-200); Estimated Glomerular Filt Rate 74 ml/min (>60); GFR (African American) 89 ML/MIN (>60); Glucose 175 mg/dl (74-100)
[2023-07-10 18:51] LABS: POC Glucose,Bedside 166 (70-110)
[2023-07-10 18:51] LABS: POC Glucose,Bedside 165 (70-110)
[2023-07-10 18:51] LABS: POC Glucose,Bedside 159 (70-110)
[2023-07-10 19:05] LABS: Potassium 2.6 mmoL/L (3.5-5.1); Troponin I 4.92 ng/ml (0.00-0.034)
[2023-07-10] MEDS: POTASSIUM CHLORIDE 20MEQ/15ML UDC 20 MEQ FEED TUBE (19:37)
[2023-07-10] MEDS: PANTOPRAZOLE 40MG VIAL 40 MG IV (20:48)
[2023-07-10] MEDS: SODIUM CHLORIDE 0.9% 10ML VIAL 10 ML IV (20:48)
[2023-07-11] VITALS (27 sets, daily range): BP systolic 97–124; BP diastolic 56–83; PULSE 100–127; RESP 14–24; TEMP 36–36.8; O2SAT 97–100; BMI 24.0
[2023-07-11 00:24] LABS: Acetone, Serum (Rapid) Large (None Detect)
[2023-07-11 00:37] LABS: Alanine Aminotransferase 20 U/L (12-78); Albumin Level 3.4 g/dl (3.5-5.0); Albumin/Globulin Ratio 1.2 (1.1-1.8); Alkaline Phosphatase 78 U/L (38-126); Aspartate Amino Transferase 57 U/L (14-36); Bilirubin,Total 0.5 mg/dl (0.2-1.3); Blood Urea Nitrogen 18 mg/dl (7-17); Calcium 8.2 mg/dl (8.4-10.2); Chloride 118 mmol/L (98-107); Creatinine Clearance Estimated 76 mL/min (50-200); Estimated Glomerular Filt Rate 74 ml/min (>60); GFR (African American) 89 ML/MIN (>60); Globulin 2.9 g/dL (1.3-3.2); Glucose 205 mg/dl (74-100); Potassium 3.4 mmoL/L (3.5-5.1); Sodium 147 mmol/L (136-145); Total Protein,Serum 6.3 g/dl (6.3-8.2)
[2023-07-11 00:51] LABS: Anion Gap 27.4 mEq/L (5-15); Carbon Dioxide < 5 mmol/L (22.0-30.0)
[2023-07-11] MEDS: INSULIN REGULAR, HUMAN 100 UNIT in 0.9 % SODIUM CHLORIDE 100 ML 9.38000000000000078 UNIT IV (01:05)
[2023-07-11 02:45] LABS: Alanine Aminotransferase 20 U/L (12-78); Albumin Level 3.3 g/dl (3.5-5.0); Albumin/Globulin Ratio 1.2 (1.1-1.8); Alkaline Phosphatase 72 U/L (38-126); Anion Gap 24.8 mEq/L (5-15); Aspartate Amino Transferase 45 U/L (14-36); Bilirubin,Total 0.4 mg/dl (0.2-1.3); Blood Urea Nitrogen 16 mg/dl (7-17); Calcium 8.3 mg/dl (8.4-10.2); Chloride 121 mmol/L (98-107); Creatinine Clearance Estimated 76 mL/min (50-200); Estimated Glomerular Filt Rate 74 ml/min (>60); GFR (African American) 89 ML/MIN (>60); Globulin 2.8 g/dL (1.3-3.2); Glucose 203 mg/dl (74-100); Sodium 149 mmol/L (136-145); Total Protein,Serum 6.1 g/dl (6.3-8.2)
[2023-07-11 02:49] LABS: Carbon Dioxide 6 mmol/L (22.0-30.0); Potassium 2.8 mmoL/L (3.5-5.1)
[2023-07-11] MEDS: KCl 20mEq/100ml 100 ML 50 MEQ IV ×3 (02:53→06:35)
[2023-07-11] MEDS: MORPHINE 2MG/ML SYRINGE 2 MG IV (05:09)
[2023-07-11] MEDS: DEX IV ×2 (05:31→14:41)
[2023-07-11] MEDS: POTASSIUM CHLORIDE IV ×2 (05:31→14:41)
[2023-07-11] MEDS: NACL IV ×2 (05:31→14:41)
[2023-07-11] MEDS: SODIUM BICARBONATE IV ×2 (05:31→14:41)
[2023-07-11 06:12] LABS: Chloride 121 mmol/L (98-107); Potassium 4.8 mmoL/L (3.5-5.1); Sodium 148 mmol/L (136-145)
[2023-07-11 06:15] LABS: Blood Urea Nitrogen 17 mg/dl (7-17); Creatinine Clearance Estimated 90 mL/min (50-200); Estimated Glomerular Filt Rate 86 ml/min (>60); GFR (African American) 104 ML/MIN (>60)
[2023-07-11 06:16] LABS: Anion Gap 18.8 mEq/L (5-15); Calcium 8.2 mg/dl (8.4-10.2); Carbon Dioxide 13 mmol/L (22.0-30.0); Glucose 136 mg/dl (74-100)
[2023-07-11 07:17] LABS: POC Glucose,Bedside 209 (70-110)
[2023-07-11 07:17] LABS: POC Glucose,Bedside 146 (70-110)
[2023-07-11 07:17] LABS: POC Glucose,Bedside 183 (70-110)
[2023-07-11 07:17] LABS: POC Glucose,Bedside 192 (70-110)
[2023-07-11 07:17] LABS: POC Glucose,Bedside 137 (70-110)
[2023-07-11 07:17] LABS: POC Glucose,Bedside 149 (70-110)
[2023-07-11 07:17] LABS: POC Glucose,Bedside 230 (70-110)
[2023-07-11 07:17] LABS: POC Glucose,Bedside 124 (70-110)
[2023-07-11 08:25] LABS: POC Glucose,Bedside 184 (70-110)
[2023-07-11 09:20] LABS: POC Glucose,Bedside 214 (70-110)
--- NOTE | 2023-07-11 09:50 | EXP.CARD.PN ---
Subjective Subjective Date: 07/11/23 Time: 09:50 Principal diagnosis: DKA, NSTEMI, HFrEF Interval history: 58-year-old white female still not communicating. Reportedly is oriented only to person in room at bedside reports she was given medication for agitation last evening Heart rate around 120 bpm with telemetry showing sinus tachycardia Systolic blood pressure around 105 to 120 mmHg Potassium has been corrected Anion gap down to 18 Renal functions normal Sodium slightly elevated 148 Liver functions improving Troponin is trending down Exam Data for Last 24 hours Vital signs and Labs for Last 24 Hours: Temp Pulse Resp BP Pulse Ox O2 Del Method 98.2 F 118 H 24 105/64 L 100 Room Air 07/11/23 08:00 07/11/23 08:00 07/11/23 08:00 07/11/23 08:00 07/11/23 08:00 07/11/23 08:00 Laboratory Results - last 24 hr 07/10/23 07:27: Total Counted 100, Neutrophils % (Manual) 68, Lymphocytes % (Manual) 22, Monocytes % (Manual) 10 H, Platelet Estimate Normal, RBC Morphology Normal 07/10/23 08:57: POC Glucose 106 07/10/23 09:58: POC Glucose 126 H 07/10/23 10:51: POC Glucose 118 H 07/10/23 11:58: POC Glucose 128 H 07/10/23 12:09: Sodium 146 H, Potassium 3.0 L D, Chloride 114 H, Carbon Dioxide 9 L* D, Anion Gap 26.0 H, BUN 22 H, Creatinine 0.90, Estimated Creat Clear 67, Estimated GFR 65, Est GFR ( Amer) 78, Glucose 134 H D, Calcium 8.1 L 07/10/23 12:10: Troponin I 8.07 H 07/10/23 12:18: VBG pH 7.30 L, VBG pCO2 21.4 L, VBG pO2 71.9 H, VBG HCO3 10.2 L, VBG Total CO2 10.9 L, VBG O2 Saturation 96.0 H, VBG Base Excess -16.2 L 07/10/23 13:10: POC Glucose 150 H 07/10/23 14:09: POC Glucose 150 H 07/10/23 14:50: POC Glucose 155 H 07/10/23 16:01: POC Glucose 154 H 07/10/23 17:19: POC Glucose 165 H 07/10/23 18:08: POC Glucose 159 H 07/10/23 18:10: Sodium 145, Potassium 2.6 L*, Chloride 117 H, Carbon Dioxide 11 L, Anion Gap 19.6 H, BUN 21 H, Creatinine 0.80, Estimated Creat Clear 76, Estimated GFR 74, Est GFR ( Amer) 89, Glucose 175 H D, Calcium 8.0 L, Troponin I 4.92 H 07/10/23 18:41: POC Glucose 166 H 07/10/23 20:50: POC Glucose 183 H 07/10/23 22:20: POC Glucose 192 H 07/10/23 23:36: POC Glucose 230 H 07/10/23 23:59: Acetone Level Large 07/11/23 00:00: Sodium 147 H, Potassium 3.4 L D, Chloride 118 H, Carbon Dioxide < 5 L* D, Anion Gap 27.4 H, BUN 18 H, Creatinine 0.80, Estimated Creat Clear 76, Estimated GFR 74, Est GFR ( Amer) 89, Glucose 205 H, Calcium 8.2 L, Total Bilirubin 0.5, AST 57 H, ALT 20, Alkaline Phosphatase 78, Total Protein 6.3, Albumin 3.4 L D, Globulin 2.9, Albumin/Globulin Ratio 1.2 07/11/23 01:45: POC Glucose 209 H 07/11/23 02:20: Sodium 149 H, Potassium 2.8 L*, Chloride 121 H, Carbon Dioxide 6 L* D, Anion Gap 24.8 H, BUN 16, Creatinine 0.80, Estimated Creat Clear 76, Estimated GFR 74, Est GFR ( Amer) 89, Glucose 203 H, Calcium 8.3 L, Total Bilirubin 0.4, AST 45 H, ALT 20, Alkaline Phosphatase 72, Total Protein 6.1 L, Albumin 3.3 L, Globulin 2.8, Albumin/Globulin Ratio 1.2 07/11/23 03:39: POC Glucose 137 H 07/11/23 04:52: POC Glucose 149 H 07/11/23 05:47: POC Glucose 124 H 07/11/23 05:49: Sodium 148 H, Potassium 4.8 D, Chloride 121 H, Carbon Dioxide 13 L, Anion Gap 18.8 H, BUN 17, Creatinine 0.70, Estimated Creat Clear 90, Estimated GFR 86, Est GFR ( Amer) 104, Glucose 136 H D, Calcium 8.2 L 07/11/23 06:36: POC Glucose 146 H 07/11/23 08:14: POC Glucose 184 H 07/11/23 09:11: POC Glucose 214 H I & O for Last 24 hours: Intake & Output 07/08/23 07/09/23 07/10/23 07/11/23 11:59 11:59 11:59 11:59 Intake Total 2007.694 / 2007. 3619.413 / 3619.413 Output Total 6700 / 6700 2575 / 2575 Balance -4691.306 / -4691.306 1044.413 / 1044.413 Weight 136 lb 8 oz 141 lb 1.533 oz Constitutional Constitutional: somnolent *Routine Respiratory Exam Respiratory: Present decreased breath sounds and diminished air movement *Routine Cardiovascular Exam Cardiovascular: Present tachycardia *Routine Extremities Exam Extremities: Present edema Progress Note: A&P Assessment and plan (1) DKA, type 2: Status: Acute (2) SIRS without infection with organ dysfunction: Status: Acute (3) Hypothermia: Status: Acute (4) Elevated troponin: Status: Acute Assessment and Plan Assessment and Plan for All Diagnoses:: 1. DKA -on insulin gtt, IVF with dextrose -per Hospitalist -anion gap initially 31 and now down to 18 2. NSTEMI/HFrEF in setting of DKA with pH of 6.9 -EF 20% with akinesis of the septal and anteroseptal LV he -Troponin max 6.26, trending down -Add aspirin and statin -will not use jardiance due to DKA -hold off on entresto and BB at this time until mental status improves 3. Pneumonia with initial white count 23K -On antibiotic therapy -Pulmonary following 4. Altered mental status due to multiple issues as noted above Cardiac workup on hold until mental status improves. In light of significant IVF, will use lasix as needed due to HFrEF When able to take oral meds then start low dose toprol 12.5 mg daily, ASA 81 mg daily and atorvastatin 40 mg daily due to NSTEMI/cardiomyopathy. Will change subcutaneous heparin to IV if CT of head negative for bleed.
--- NOTE | 2023-07-11 09:51 | PC.NURSE ---
ng tube removed at this time
--- NOTE | 2023-07-11 09:58 | EXP.PULM.PN ---
Subjective *Date: 07/11/23 *Time: 12:35 Interval history: No acute respiratory vents overnight. Pulmonology Exam Inpatient Vital signs and Labs for Last 24 Hours: Temp Pulse Resp BP Pulse Ox O2 Del Method 98.2 F 118 H 24 105/64 L 100 Room Air 07/11/23 08:00 07/11/23 08:00 07/11/23 08:00 07/11/23 08:00 07/11/23 08:00 07/11/23 08:00 Laboratory Results - last 24 hr 07/10/23 07:27: Total Counted 100, Neutrophils % (Manual) 68, Lymphocytes % (Manual) 22, Monocytes % (Manual) 10 H, Platelet Estimate Normal, RBC Morphology Normal 07/10/23 08:57: POC Glucose 106 07/10/23 09:58: POC Glucose 126 H 07/10/23 10:51: POC Glucose 118 H 07/10/23 11:58: POC Glucose 128 H 07/10/23 12:09: Sodium 146 H, Potassium 3.0 L D, Chloride 114 H, Carbon Dioxide 9 L* D, Anion Gap 26.0 H, BUN 22 H, Creatinine 0.90, Estimated Creat Clear 67, Estimated GFR 65, Est GFR ( Amer) 78, Glucose 134 H D, Calcium 8.1 L 07/10/23 12:10: Troponin I 8.07 H 07/10/23 12:18: VBG pH 7.30 L, VBG pCO2 21.4 L, VBG pO2 71.9 H, VBG HCO3 10.2 L, VBG Total CO2 10.9 L, VBG O2 Saturation 96.0 H, VBG Base Excess -16.2 L 07/10/23 13:10: POC Glucose 150 H 07/10/23 14:09: POC Glucose 150 H 07/10/23 14:50: POC Glucose 155 H 07/10/23 16:01: POC Glucose 154 H 07/10/23 17:19: POC Glucose 165 H 07/10/23 18:08: POC Glucose 159 H 07/10/23 18:10: Sodium 145, Potassium 2.6 L*, Chloride 117 H, Carbon Dioxide 11 L, Anion Gap 19.6 H, BUN 21 H, Creatinine 0.80, Estimated Creat Clear 76, Estimated GFR 74, Est GFR ( Amer) 89, Glucose 175 H D, Calcium 8.0 L, Troponin I 4.92 H 07/10/23 18:41: POC Glucose 166 H 07/10/23 20:50: POC Glucose 183 H 07/10/23 22:20: POC Glucose 192 H 07/10/23 23:36: POC Glucose 230 H 07/10/23 23:59: Acetone Level Large 07/11/23 00:00: Sodium 147 H, Potassium 3.4 L D, Chloride 118 H, Carbon Dioxide < 5 L* D, Anion Gap 27.4 H, BUN 18 H, Creatinine 0.80, Estimated Creat Clear 76, Estimated GFR 74, Est GFR ( Amer) 89, Glucose 205 H, Calcium 8.2 L, Total Bilirubin 0.5, AST 57 H, ALT 20, Alkaline Phosphatase 78, Total Protein 6.3, Albumin 3.4 L D, Globulin 2.9, Albumin/Globulin Ratio 1.2 07/11/23 01:45: POC Glucose 209 H 07/11/23 02:20: Sodium 149 H, Potassium 2.8 L*, Chloride 121 H, Carbon Dioxide 6 L* D, Anion Gap 24.8 H, BUN 16, Creatinine 0.80, Estimated Creat Clear 76, Estimated GFR 74, Est GFR ( Amer) 89, Glucose 203 H, Calcium 8.3 L, Total Bilirubin 0.4, AST 45 H, ALT 20, Alkaline Phosphatase 72, Total Protein 6.1 L, Albumin 3.3 L, Globulin 2.8, Albumin/Globulin Ratio 1.2 07/11/23 03:39: POC Glucose 137 H 07/11/23 04:52: POC Glucose 149 H 07/11/23 05:47: POC Glucose 124 H 07/11/23 05:49: Sodium 148 H, Potassium 4.8 D, Chloride 121 H, Carbon Dioxide 13 L, Anion Gap 18.8 H, BUN 17, Creatinine 0.70, Estimated Creat Clear 90, Estimated GFR 86, Est GFR ( Amer) 104, Glucose 136 H D, Calcium 8.2 L 07/11/23 06:36: POC Glucose 146 H 07/11/23 08:14: POC Glucose 184 H 07/11/23 09:11: POC Glucose 214 H I & O for Labs for Last 24 Hours: Intake & Output 07/08/23 07/09/23 07/10/23 07/11/23 23:59 23:59 23:59 23:59 Intake Total 4189.361 / 4189.361 1438.746 / 1438.746 Output Total 1250 / 2450 7225 / 7225 800 / 800 Balance -1250 / -2450 -3035.639 / -3035.639 638.746 / 638.746 Weight 140 lb 136 lb 8 oz 141 lb 1.533 oz Constitutional: Present severe distress Head: Present normocephalic and atraumatic ENT: Present normal exam, normal oropharynx and mucous membranes moist Neck: Present normal inspection and full ROM Respiratory: Present respiratory distress and able to speak in complete sentences; Absent wheezes or crackles Cardiac: Present S1/S2, Tachycardia and radial pulses present GI: Present soft and distention; Absent tenderness or guarding Rectal (female): Present deferred (female): Present deferred Skin: Present intact; Absent cyanosis or jaundice Neuro: Present alert, awake and oriented x 3 Extremities: Present normal inspection; Absent clubbing or cyanosis Psychiatric: Present normal affect and cooperative Assessment and Plan *Assessment and plan (1) DKA (diabetic ketoacidosis): Status: Acute Qualifiers: Diabetes mellitus complication detail: without coma Diabetes mellitus type: type 2 Qualified Code(s): E11.10 - Type 2 diabetes mellitus with ketoacidosis without coma Category: Medical Code(s): E11.10 - Type 2 diabetes mellitus with ketoacidosis without coma (2) Multiple pulmonary nodules: Status: Acute Category: Medical Code(s): R91.8 - Other nonspecific abnormal finding of lung field (3) Pneumonia: Status: Acute Qualifiers: Laterality: unspecified laterality Lung location: unspecified part of lung Pneumonia type: due to unspecified organism Qualified Code(s): J18.9 - Pneumonia, unspecified organism Category: Medical Code(s): J18.9 - Pneumonia, unspecified organism Plan Ms. Greenfield is a 58-year-old with reported history of diabetes mellitus, dyspnea presented today with worsening altered mentation and dizziness admitted and being managed for DKA and pulmonary was called for further evaluation and management. Significant leukocytosis upon admission improving. VBG and ABG upon admission showed severe metabolic acidosis with a pH of 6.90 with a pCO2 of 13.4 with a bicarb of [address] chest upon admission bilateral round nodules some of them are partially calcified. No prior imaging available to review. Also noted to have groundglass opacities. COVID-19 and flu PCR panel negative. Patient was initiated on DKA protocol along with vancomycin and Unasyn. Percent serum glucose less than 150. Labs DKA noted will continue to have anion gap and continue to have severe metabolic acidosis. Interval update: Improving metabolic acidosis. Hypokalemia improved now at 4.8. Hyponatremia at 148. Improved mentation, awake and oriented x 2 today. Significant improvement from yesterday. Discussed and updated the patient and family regarding her critical medical condition at this point of time and the need for continuation of ongoing medical care Plan: -Recommend to continue D5 half-normal saline without any potassium supplementation. Blood glucose ranging from 124-214. -Recommend continuing insulin drip until the gap closes. Improving from yesterday -Continue current antibiotics pending culture results -Continue oxygen supplementation to maintain O2 saturation goal of 90% and above. DuoNebs every 6 hours on as-needed basis. # For the noted pulmonary nodules in the lung which are likely from a prior granulomatous disease, will be followed as an outpatient basis with follow-up imaging to determine the stability.
[2023-07-11 10:27] LABS: POC Glucose,Bedside 178 (70-110)
[2023-07-11 10:31] LABS: Anion Gap 19.7 mEq/L (5-15); Blood Urea Nitrogen 16 mg/dl (7-17); Calcium 8.4 mg/dl (8.4-10.2); Carbon Dioxide 12 mmol/L (22.0-30.0); Chloride 122 mmol/L (98-107); Creatinine Clearance Estimated 105 mL/min (50-200); Estimated Glomerular Filt Rate 103 ml/min (>60); GFR (African American) 125 ML/MIN (>60); Glucose 209 mg/dl (74-100); Potassium 3.7 mmoL/L (3.5-5.1)
[2023-07-11 10:36] LABS: Sodium 150 mmol/L (136-145)
[2023-07-11 11:14] LABS: Hemoglobin A1C 10.7 % (4.0-6.0)
[2023-07-11] MEDS: HEPARIN SODIUM 5,000 UNIT/ML VIAL 5000 UNIT SQ ×2 (11:31→21:29)
--- NOTE | 2023-07-11 11:40 | CT_ITS ---
FINAL REPORT TECHNIQUE: Axial imaging of the head was obtained without contrast. This study was performed with techniques to keep radiation doses as low as reasonably achievable, (ALARA). Individualized dose reduction techniques using automated exposure control or adjustment of mA and/or kV according to the patient''s size were employed. CLINICAL HISTORY: altered mental status FINDINGS: The ventricles are normal in size. There is no evidence of hemorrhage. No masses are identified. No extra-axial fluid is seen. The sinuses are normal. There is no acute osseous abnormality. IMPRESSION: No acute intracranial abnormality. Reviewed, Interpreted and Dictated by Clif Negron MD Transcribed by Freida Matthews Authenticated and [facility]
[2023-07-11 11:42] LABS: POC Glucose,Bedside 208 (70-110)
[2023-07-11 13:22] LABS: POC Glucose,Bedside 167 (70-110)
--- NOTE | 2023-07-11 13:47 | PC.NURSE ---
pt transported to ct by RN at 1216 returned at 1232
[2023-07-11 14:39] LABS: POC Glucose,Bedside 163 (70-110)
[2023-07-11 15:36] LABS: POC Glucose,Bedside 168 (70-110)
[2023-07-11] MEDS: INSULIN REGULAR, HUMAN 100 UNIT in 0.9 % SODIUM CHLORIDE 100 ML IV (16:21)
[2023-07-11 16:52] LABS: POC Glucose,Bedside 150 (70-110)
--- NOTE | 2023-07-11 17:41 | EXP.PN ---
Subjective *Date: 07/11/23 *Time: 17:41 Interval history: Patient is seen and evaluated at the bedside, more alert and awake, patient is not communicating, She is lethargic but better than yesterday, family is at bedside, and updated them on plan of care Exam Data for Last 24 hours Vital signs and Labs for Last 24 Hours: Temp Pulse Resp BP Pulse Ox O2 Del Method 98 F 100 H 20 119/75 100 Room Air 07/11/23 12:00 07/11/23 17:00 07/11/23 17:00 07/11/23 17:00 07/11/23 17:00 07/11/23 17:00 Laboratory Results - last 24 hr 07/10/23 17:19: POC Glucose 165 H 07/10/23 18:08: POC Glucose 159 H 07/10/23 18:10: Sodium 145, Potassium 2.6 L*, Chloride 117 H, Carbon Dioxide 11 L, Anion Gap 19.6 H, BUN 21 H, Creatinine 0.80, Estimated Creat Clear 76, Estimated GFR 74, Est GFR ( Amer) 89, Glucose 175 H D, Calcium 8.0 L, Troponin I 4.92 H 07/10/23 18:41: POC Glucose 166 H 07/10/23 20:50: POC Glucose 183 H 07/10/23 22:20: POC Glucose 192 H 07/10/23 23:36: POC Glucose 230 H 07/10/23 23:59: Acetone Level Large 07/11/23 00:00: Sodium 147 H, Potassium 3.4 L D, Chloride 118 H, Carbon Dioxide < 5 L* D, Anion Gap 27.4 H, BUN 18 H, Creatinine 0.80, Estimated Creat Clear 76, Estimated GFR 74, Est GFR ( Amer) 89, Glucose 205 H, Calcium 8.2 L, Total Bilirubin 0.5, AST 57 H, ALT 20, Alkaline Phosphatase 78, Total Protein 6.3, Albumin 3.4 L D, Globulin 2.9, Albumin/Globulin Ratio 1.2 07/11/23 01:45: POC Glucose 209 H 07/11/23 02:20: Sodium 149 H, Potassium 2.8 L*, Chloride 121 H, Carbon Dioxide 6 L* D, Anion Gap 24.8 H, BUN 16, Creatinine 0.80, Estimated Creat Clear 76, Estimated GFR 74, Est GFR ( Amer) 89, Glucose 203 H, Calcium 8.3 L, Total Bilirubin 0.4, AST 45 H, ALT 20, Alkaline Phosphatase 72, Total Protein 6.1 L, Albumin 3.3 L, Globulin 2.8, Albumin/Globulin Ratio 1.2 07/11/23 03:39: POC Glucose 137 H 07/11/23 04:52: POC Glucose 149 H 07/11/23 05:47: POC Glucose 124 H 07/11/23 05:49: Sodium 148 H, Potassium 4.8 D, Chloride 121 H, Carbon Dioxide 13 L, Anion Gap 18.8 H, BUN 17, Creatinine 0.70, Estimated Creat Clear 90, Estimated GFR 86, Est GFR ( Amer) 104, Glucose 136 H D, Calcium 8.2 L 07/11/23 06:36: POC Glucose 146 H 07/11/23 08:14: POC Glucose 184 H 07/11/23 09:11: POC Glucose 214 H 07/11/23 10:01: Sodium 150 H, Potassium 3.7 D, Chloride 122 H, Carbon Dioxide 12 L, Anion Gap 19.7 H, BUN 16, Creatinine 0.60, Estimated Creat Clear 105, Estimated GFR 103, Est GFR ( Amer) 125 D, Glucose 209 H D, Hemoglobin A1c 10.7 H, Calcium 8.4 07/11/23 10:18: POC Glucose 178 H 07/11/23 11:30: POC Glucose 208 H 07/11/23 13:08: POC Glucose 167 H 07/11/23 14:27: POC Glucose 163 H 07/11/23 15:12: POC Glucose 168 H 07/11/23 16:22: POC Glucose 150 H I & O for Last 24 hours: Intake & Output 07/08/23 07/09/23 07/10/23 07/11/23 23:59 23:59 23:59 23:59 Intake Total 4189.361 / 4189.361 2997.163 / 2997.163 Output Total 1250 / 2450 7225 / 7225 1600 / 1600 Balance -1250 / -2450 -3035.639 / -3035.639 1397.163 / 1397.163 Weight 63.503 kg 61.915 kg 64 kg Constitutional Constitutional: no acute distress *Routine HEENT Exam Head: Present normocephalic Eye: Present EOMI and PERRL ENT: Present mucous membranes moist *Routine Neck Exam Neck: Present supple; Absent lymphadenopathy *Routine Respiratory Exam Respiratory: Present CTA bilaterally *Routine Cardiovascular Exam Cardiovascular: Present RRR *Routine Abdominal Exam Abdominal: Present soft and normoactive bowel sounds; Absent tenderness *Routine Extremities Exam Extremities: Absent cyanosis, clubbing or edema *Routine Skin Exam Skin: Present warm; Absent rash *Routine Neurological Exam Neurological: Present alert and oriented X3 Assessment and Plan *Assessment and plan (1) DKA, type 2: Status: Acute Qualifiers: Diabetes mellitus complication detail: without coma Qualified Code(s): E11.10 - Type 2 diabetes mellitus with ketoacidosis without coma Category: Medical Code(s): E11.10 - Type 2 diabetes mellitus with ketoacidosis without coma (2) SIRS without infection with organ dysfunction: Status: Acute Category: Medical Code(s): R65.11 - Systemic inflammatory response syndrome (SIRS) of non-infectious origin with acute organ dysfunction (3) Hypothermia: Status: Acute Qualifiers: Encounter type: initial encounter Qualified Code(s): T68.XXXA - Hypothermia, initial encounter Category: Medical Code(s): T68.XXXA - Hypothermia, initial encounter (4) Elevated troponin: Status: Acute Category: Medical Code(s): R79.89 - Other specified abnormal findings of blood chemistry Plan 58-year-old female PMHx of NIDDM, HLD, presented to the emergency department initially for altered mental status weakness and dizziness. History obtained form ED and patient's . Per patient's she is given a 3-day history of progressive nausea vomiting and generalized weakness. On arrival patient visible sick. remains alert and oriented, and able to answer question appropriately. Presented tachycardic and hyporthermic. initial workup reviewed showed leukocytosis with an absolute neutrophil count of 18.3, INR is 1.2 VBG shows pH 6.71 with a pCO2 of 26. CMP shows a sodium 135 potassium 3.7 CO2 that is undetectable and anion gap of 31.7 creatinine 1.8 with a GFR of 29. EKG initially was afib with RVR. converted to ST. troponin was 1.26. Discussed with ED provider. Patient admitted to ICU. plan as follow: -DKA, type 2 without coma: SIRS with organ dysfunction, no clear sources of infection: Admit patient for ICU. On continuous monitoring per unit CMP q. 2h 0.45 normal saline with 50 mEq of bicarb started at ER Another 50 mEq ordered On continuous insulin infusion Normal saline at 125 Watch for electrolyte imbalance. Replace by protocol Potassium and sodium are normalized UA negative Blood culture pending CT of the abdomen negative Chest x-ray reviewed. Suspected virus infection versus reactive pneumonitis Respiratory panel negative -Hypothermia: Likely secondary to above Core body temperature of 95.3. On huggy bear. Warmed infusion. -Elevated troponin: EKG stat. Shows sinus tach, with nonspecific ST changes cardiology consulted. Order to obtained. Heparin bolus given. Echo ordered One-time Lasix ordered Patient chest pain-free SCD for DVT prophylaxis. Protonix for GI bleed protection Full code continue treatment for DKA and Cardiology/pulmonary follow up, continue IV insulin and monitor BMP
[2023-07-11 17:55] LABS: POC Glucose,Bedside 171 (70-110)
[2023-07-11 18:33] LABS: POC Glucose,Bedside 146 (70-110)
--- NOTE | 2023-07-11 19:00 | PC.NURSE ---
Report received by YADIRA Brantley. Patient remains on insulin GTT at this time, currently infusing at 1.2Units/HR (1.2 ML/HR). Patient is a Q1hr fingerstick. Will continue to follow policy.
[2023-07-11 19:09] LABS: POC Glucose,Bedside 161 (70-110)
--- NOTE | 2023-07-11 20:00 | PC.NURSE ---
Patient BMP shows gap closed at 12.3, patients FSBS is 158. AILYN Guerra discontinued patients insulin gtt and changed fluids to LR, diet changed to diabetic. Patient ate a sandwich, and a sugar free pudding, no complaints of nausea, no vomiting noted.
[2023-07-11 20:18] LABS: POC Glucose,Bedside 165 (70-110)
[2023-07-11 20:53] LABS: Chloride 118 mmol/L (98-107); Sodium 142 mmol/L (136-145)
[2023-07-11 20:54] LABS: Potassium 4.3 mmoL/L (3.5-5.1)
[2023-07-11 20:56] LABS: Blood Urea Nitrogen 13 mg/dl (7-17); Creatinine Clearance Estimated 157 mL/min (50-200); Estimated Glomerular Filt Rate 165 ml/min (>60); GFR (African American) 199 ML/MIN (>60)
[2023-07-11 20:57] LABS: Anion Gap 12.3 mEq/L (5-15); Calcium 8.2 mg/dl (8.4-10.2); Carbon Dioxide 16 mmol/L (22.0-30.0); Glucose 151 mg/dl (74-100)
[2023-07-11] MEDS: PANTOPRAZOLE 40MG VIAL 40 MG IV (21:30)
[2023-07-11 21:37] LABS: POC Glucose,Bedside 158 (70-110)
[2023-07-11] MEDS: LACTATED RINGERS 1000ML 1,000 ML 75 ML IV (22:30)
--- NOTE | 2023-07-11 23:03 | PC.NURSE ---
ROUNDED ON PT AT 1999 NO NEEDS AT TIME
[2023-07-12] VITALS (11 sets, daily range): BP systolic 103–119; BP diastolic 60–78; PULSE 97–122; RESP 16–18; TEMP 36.5–37.2; O2SAT 96–100; BMI 25.2
[2023-07-12 02:09] LABS: Chloride 112 mmol/L (98-107); Sodium 142 mmol/L (136-145)
[2023-07-12 02:11] LABS: Anion Gap 17.1 mEq/L (5-15); Blood Urea Nitrogen 12 mg/dl (7-17); Carbon Dioxide 16 mmol/L (22.0-30.0); Creatinine Clearance Estimated 125 mL/min (50-200); Estimated Glomerular Filt Rate 127 ml/min (>60); GFR (African American) 154 ML/MIN (>60); Glucose 180 mg/dl (74-100); Potassium 3.1 mmoL/L (3.5-5.1)
[2023-07-12] MEDS: POTASSIUM CHLORIDE 20MEQ TAB 40 MEQ PO (03:05)
[2023-07-12] MEDS: INSULIN GLARGINE 100 UNITS/ML 10ML VIAL 10 UNIT SQ (03:05)
[2023-07-12] MEDS: humaLOG 100 UNITS/ML 3ML VIAL (SSI) SQ ×4 (03:09→20:58)
--- NOTE | 2023-07-12 03:10 | PC.NURSE ---
AILYN Guerra was notified of recent lab results from 0155. Gap is 17.1, K is 3.1, Glucose is 180. Orders received to recheck fingerstick and administer SSI as low intensity protocol, then administer 10U of Lantus now, and 40 MeQ KCL. Patient and spouse updated on plan. No questions at this time.
[2023-07-12 05:53] LABS: POC Glucose,Bedside 161 (70-110)
[2023-07-12 05:58] LABS: POC Glucose,Bedside 151 (70-110)
--- NOTE | 2023-07-12 06:22 | PC.NURSE ---
Patient has done well this shift. Has been able to carry on conversations, has been able to tolerate diabetic diet. Insulin GTT remains off, patient is now a medsurg patient. ACHS FSBS has been initiated with SSI coverage. Acharya remains in place draining clear yellow urine. No complaints this shift. Call flood, Bedside table, water pitcher, and personal belongings all within reach. Care is ongoing.
[2023-07-12 07:15] LABS: Basophils # 0.1 K/mm3 (0-0.2); Basophils % 0.8 % (0.1-2.0); Eosinophils % 0.2 % (0.1-12.0); Hemoglobin 14.6 g/dL (12.2-16.2); Lymphocytes # 3.7 K/mm3 (0.7-4.5); Lymphocytes % 31.3 % (10-50); Mean Corpuscular HGB Conc 34.8 g/dL (31.8-35.4); Mean Corpuscular Hemoglobin 31.4 pg (27.0-31.2); Mean Corpuscular Volume 90.1 fl (81-99); Mean Platelet Volume 8.4 fl (7.4-10.4); Monocytes # 0.5 K/mm3 (0.1-1.0); Monocytes % 4.5 % (1.7-9.3); Neutrophils # 7.5 K/mm3 (1.8-7.8); Neutrophils % 63.2 % (37.0-80.0); Platelet Count 180 K/mm3 (142-424); Red Blood Count 4.66 M/mm3 (4.20-5.40); Red Cell Distribution Width 13.8 % (11.5-17.5); White Blood Count 11.9 K/mm3 (4.8-10.8)
[2023-07-12 07:19] LABS: Chloride 113 mmol/L (98-107); Potassium 3.5 mmoL/L (3.5-5.1); Sodium 142 mmol/L (136-145)
[2023-07-12 07:22] LABS: Anion Gap 14.5 mEq/L (5-15); Blood Urea Nitrogen 13 mg/dl (7-17); Calcium 8.1 mg/dl (8.4-10.2); Carbon Dioxide 18 mmol/L (22.0-30.0); Creatinine Clearance Estimated 131 mL/min (50-200); Estimated Glomerular Filt Rate 127 ml/min (>60); GFR (African American) 154 ML/MIN (>60); Glucose 148 mg/dl (74-100)
[2023-07-12] MEDS: HEPARIN SODIUM 5,000 UNIT/ML VIAL 5000 UNIT SQ ×2 (08:56→20:58)
[2023-07-12] MEDS: PRAVASTATIN 40MG TAB 40 MG PO (11:36)
[2023-07-12] MEDS: EMPAGLIFLOZIN 10MG TABLET 20 MG PO (11:36)
[2023-07-12] MEDS: FENOFIBRATE 134MG CAPSULE 134 MG PO (11:36)
[2023-07-12] MEDS: METFORMIN 500MG TABLET 500 MG PO ×2 (11:36→17:01)
[2023-07-12] MEDS: DOCUSATE SODIUM 100 MG CAPSULE PO ×2 (11:36→20:58)
[2023-07-12 12:10] LABS: POC Glucose,Bedside 154 (70-110)
[2023-07-12] MEDS: GABAPENTIN 400MG CAPSULE 400 MG PO ×2 (14:00→20:58)
[2023-07-12 17:17] LABS: POC Glucose,Bedside 146 (70-110)
--- NOTE | 2023-07-12 17:35 | PC.NURSE ---
Patient has had several visitors throughout the day. she is a/o x4 nad noted. pt lung sounds are clear throughout. bowel sounds are active in all quads. pt states last bm was on friday, notified and stool softener ordered. pt has been up to the chair since approx 1100 and has been able to ambulated to and from the restroom with standby assistance this shift. pt tolerated well. pt does endorse weakness at this time and expresses pain with all fingersticks and needle sticks.
--- NOTE | 2023-07-12 18:09 | P.PN_ITS ---
Subjective *Date: 07/12/23 *Time: 18:09 Interval history: Patient is seen and evaluated at the bedside, more alert and awake, and is communicating, Exam Data for Last 24 hours Vital signs and Labs for Last 24 Hours: Temp Pulse Resp BP Pulse Ox O2 Del Method 98.9 F 110 H 16 111/67 98 Room Air 07/12/23 15:24 07/12/23 16:00 07/12/23 15:24 07/12/23 15:24 07/12/23 15:24 07/12/23 17:00 Laboratory Results - last 24 hr 07/11/23 18:20: POC Glucose 146 H 07/11/23 19:02: POC Glucose 161 H 07/11/23 20:00: Sodium 142, Potassium 4.3, Chloride 118 H, Carbon Dioxide 16 L, Anion Gap 12.3, BUN 13, Creatinine 0.40 L D, Estimated Creat Clear 157, Estimated GFR 165, Est GFR ( Amer) 199 D, Glucose 151 H D, Calcium 8.2 L 07/11/23 20:11: POC Glucose 165 H 07/11/23 21:13: POC Glucose 158 H 07/12/23 01:55: Sodium 142, Potassium 3.1 L D, Chloride 112 H, Carbon Dioxide 16 L, Anion Gap 17.1 H, BUN 12, Creatinine 0.50 L D, Estimated Creat Clear 125, Estimated GFR 127, Est GFR ( Amer) 154 D, Glucose 180 H, Calcium 8.0 L 07/12/23 02:55: POC Glucose 161 H 07/12/23 05:52: POC Glucose 151 H 07/12/23 06:27: WBC 11.9 H D, RBC 4.66, Hgb 14.6, Hct 42.0, MCV 90.1, MCH 31.4 H , MCHC 34.8, RDW 13.8, Plt Count 180, MPV 8.4, Neut % (Auto) 63.2, Lymph % (Auto) 31.3, Williams % (Auto) 4.5, Eos % (Auto) 0.2, Baso % (Auto) 0.8, Neut # (Auto) 7.5, Lymph # (Auto) 3.7, Williams # (Auto) 0.5, Eos # (Auto) 0.0, Baso # (Auto) 0.1, Sodium 142, Potassium 3.5, Chloride 113 H, Carbon Dioxide 18 L, Anion Gap 14.5, BUN 13, Creatinine 0.50 L, Estimated Creat Clear 131, Estimated GFR 127, Est GFR ( Amer) 154, Glucose 148 H, Calcium 8.1 L 07/12/23 11:43: POC Glucose 154 H 07/12/23 16:59: POC Glucose 146 H I & O for Last 24 hours: Intake & Output 07/09/23 07/10/23 07/11/23 07/12/23 23:59 23:59 23:59 23:59 Intake Total 4189.361 / 4189.361 4173.066 / 4443.066 2218 / 2218 Output Total 1250 / 2450 7225 / 7225 2049 / 2049 1100 / 1100 Balance -1250 / -2450 -3035.639 / -3035.639 2123.066 / 2393.066 1118 / 1118 Weight 63.503 kg 61.915 kg 64 kg 67 kg Constitutional Constitutional: no acute distress *Routine HEENT Exam Head: Present normocephalic Eye: Present EOMI and PERRL ENT: Present mucous membranes moist *Routine Neck Exam Neck: Present supple; Absent lymphadenopathy *Routine Respiratory Exam Respiratory: Present CTA bilaterally *Routine Cardiovascular Exam Cardiovascular: Present RRR *Routine Abdominal Exam Abdominal: Present soft and normoactive bowel sounds; Absent tenderness *Routine Extremities Exam Extremities: Absent cyanosis, clubbing or edema *Routine Skin Exam Skin: Present warm; Absent rash *Routine Neurological Exam Neurological: Present alert and oriented X3 Assessment and Plan *Assessment and plan (1) DKA, type 2: Status: Acute Qualifiers: Diabetes mellitus complication detail: without coma Qualified Code(s): E11.10 - Type 2 diabetes mellitus with ketoacidosis without coma Category: Medical Code(s): E11.10 - Type 2 diabetes mellitus with ketoacidosis without coma (2) SIRS without infection with organ dysfunction: Status: Acute Category: Medical Code(s): R65.11 - Systemic inflammatory response syndrome (SIRS) of non-infectious origin with acute organ dysfunction (3) Hypothermia: Status: Acute Qualifiers: Encounter type: initial encounter Qualified Code(s): T68.XXXA - Hypothermia, initial encounter Category: Medical Code(s): T68.XXXA - Hypothermia, initial encounter (4) Elevated troponin: Status: Acute Category: Medical Code(s): R79.89 - Other specified abnormal findings of blood chemistry Plan 58-year-old female PMHx of NIDDM, HLD, presented to the emergency department initially for altered mental status weakness and dizziness. History obtained form ED and patient's . Per patient's she is given a 3-day history of progressive nausea vomiting and generalized weakness. On arrival patient visible sick. remains alert and oriented, and able to answer question appropriately. Presented tachycardic and hyporthermic. initial workup reviewed showed leukocytosis with an absolute neutrophil count of 18.3, INR is 1.2 VBG shows pH 6.71 with a pCO2 of 26. CMP shows a sodium 135 potassium 3.7 CO2 that is undetectable and anion gap of 31.7 creatinine 1.8 with a GFR of 29. EKG initially was afib with RVR. converted to ST. troponin was 1.26. Discussed with ED provider. Patient admitted to ICU. plan as follow: -DKA, type 2 without coma: - improved SIRS with organ dysfunction, no clear sources of infection: - improving Watch for electrolyte imbalance. Replace by protocol Potassium and sodium are normalized UA negative Blood culture pending CT of the abdomen negative Chest x-ray reviewed. Suspected virus infection versus reactive pneumonitis Respiratory panel negative -Hypothermia: Likely secondary to above Core body temperature of 95.3. On huggy bear. Warmed infusion. -Elevated troponin: EKG stat. Shows sinus tach, with nonspecific ST changes cardiology consulted. Order to obtained. Heparin bolus given. Echo ordered One-time Lasix ordered Patient chest pain-free SCD for DVT prophylaxis. Protonix for GI bleed protection Full code DC on friday pending cardiology plan for possible cardiac cath
[2023-07-12] MEDS: PANTOPRAZOLE 40MG VIAL 40 MG IV (20:58)
[2023-07-12 21:02] LABS: POC Glucose,Bedside 189 (70-110)
[2023-07-13] VITALS (10 sets, daily range): BP systolic 102–135; BP diastolic 70–85; PULSE 91–113; RESP 17–18; TEMP 36.6–37.2; O2SAT 94–100; BMI 25.3
--- NOTE | 2023-07-13 05:27 | PC.NURSE ---
Patient has had a good shift. Has been able to rest through the shift. Patient only complaint was sore fingers from checking her sugars so much. No other issues noted
[2023-07-13] MEDS: METFORMIN 500MG TABLET 500 MG PO ×2 (06:32→16:55)
[2023-07-13] MEDS: EMPAGLIFLOZIN 10MG TABLET 20 MG PO (08:29)
[2023-07-13] MEDS: GABAPENTIN 400MG CAPSULE 400 MG PO ×3 (08:29→20:40)
[2023-07-13] MEDS: FENOFIBRATE 134MG CAPSULE 134 MG PO (08:29)
[2023-07-13] MEDS: PRAVASTATIN 40MG TAB 40 MG PO (08:30)
[2023-07-13] MEDS: HEPARIN SODIUM 5,000 UNIT/ML VIAL 5000 UNIT SQ ×2 (08:30→20:40)
--- NOTE | 2023-07-13 11:19 | HMH.PTEV ---
Physical Therapy Evaluation Rehab PT IP Evaluation Start: 07/12/23 09:44 Freq: ONCE Status: Active Protocol: Document 07/13/23 11:16 RENETTA (Rec: 07/13/23 11:19 PHOART [id number]) Subjective/History History History 58 yowf adm to [facility] with DKA and hypovolemic shock. SHe has PMH of DM, HLD, HTN, breast cancer, bladder cancer. She lives with her , 1 step to enter the home, and she is generally independent with all mobility without an AD. Subjective Subjective Pt reports feeling much better overall this am, agrees to mobility assessment. New diagnosis of cancer in past 12 No months? Rehab PT IP Eval Objective Appearance Patient Behavior Appropriate Patient Orientation Person,Place,Time Difficulty following instructions none Speech Pattern Clear Ambulation Patient Able to Ambulate Yes Ambulation Observation IP General Gait Pattern Observation No Deviations/Normal Ambulation Distance (feet) 300 Ambulation Assistive Device None Ambulation Ability Independent Balance Ability to Arise Able, w/o using arms Sitting Balance Steady, safe Standing Balance Narrow stance w/o support Dynamic Sitting Balance Ability Normal Dynamic Standing Balance Ability Normal Transfers Bed Transfer Ability Independent Chair Transfer Ability Independent Sit to Stand Bed Transfer Ability Independent Sit to Stand Chair Transfer Ability Independent Rehab PT IP prob,goals,plan Problems Date of Evaluation: 07/13/23 Discharge Plan PT Discharge Plan Pt is appropriate to return home once medically stable for d/c. No current inpatient therapy needs at this time. Eval Complexity Eval Charge Codes 74518 - High Complexity PHYSICIAN CERTIFICATION: I certify the specified therapy services for Madeline Greenfield are required, authorized, and reviewed every 30 days.
[2023-07-13 12:23] LABS: POC Glucose,Bedside 146 (70-110)
--- NOTE | 2023-07-13 15:08 | EXP.PN ---
Subjective *Date: 07/13/23 *Time: 15:08 Interval history: Patient is seen and evaluated at the bedside, more alert and awake, sitting in chair, able to walk and eat ,is in good spiririts Exam Data for Last 24 hours Vital signs and Labs for Last 24 Hours: Temp Pulse Resp BP Pulse Ox O2 Del Method 98.7 F 105 H 17 132/73 99 Room Air 07/13/23 11:17 07/13/23 13:47 07/13/23 11:17 07/13/23 11:17 07/13/23 13:47 07/13/23 13:47 Laboratory Results - last 24 hr 07/12/23 16:59: POC Glucose 146 H 07/12/23 20:41: POC Glucose 189 H 07/13/23 12:16: POC Glucose 146 H I & O for Last 24 hours: Intake & Output 07/10/23 07/11/23 07/12/23 07/13/23 23:59 23:59 23:59 23:59 Intake Total 4189.361 / 4189.361 4173.066 / 4443.066 2218 / 2318 580 / 580 Output Total 7225 / 7225 2049 / 2049 1100 / 1100 0 / 0 Balance -3035.639 / -3035.639 2123.066 / 2393.066 1118 / 1218 580 / 580 Weight 61.915 kg 64 kg 67 kg 67.4 kg Constitutional Constitutional: no acute distress *Routine HEENT Exam Head: Present normocephalic Eye: Present EOMI and PERRL ENT: Present mucous membranes moist *Routine Neck Exam Neck: Present supple; Absent lymphadenopathy *Routine Respiratory Exam Respiratory: Present CTA bilaterally *Routine Cardiovascular Exam Cardiovascular: Present RRR *Routine Abdominal Exam Abdominal: Present soft and normoactive bowel sounds; Absent tenderness *Routine Extremities Exam Extremities: Absent cyanosis, clubbing or edema *Routine Skin Exam Skin: Present warm; Absent rash *Routine Neurological Exam Neurological: Present alert and oriented X3 Assessment and Plan *Assessment and plan (1) DKA, type 2: Status: Acute Qualifiers: Diabetes mellitus complication detail: without coma Qualified Code(s): E11.10 - Type 2 diabetes mellitus with ketoacidosis without coma Category: Medical Code(s): E11.10 - Type 2 diabetes mellitus with ketoacidosis without coma (2) SIRS without infection with organ dysfunction: Status: Acute Category: Medical Code(s): R65.11 - Systemic inflammatory response syndrome (SIRS) of non-infectious origin with acute organ dysfunction (3) Hypothermia: Status: Acute Qualifiers: Encounter type: initial encounter Qualified Code(s): T68.XXXA - Hypothermia, initial encounter Category: Medical Code(s): T68.XXXA - Hypothermia, initial encounter (4) Elevated troponin: Status: Acute Category: Medical Code(s): R79.89 - Other specified abnormal findings of blood chemistry Plan 58-year-old female PMHx of NIDDM, HLD, presented to the emergency department initially for altered mental status weakness and dizziness. History obtained form ED and patient's . Per patient's she is given a 3-day history of progressive nausea vomiting and generalized weakness. On arrival patient visible sick. remains alert and oriented, and able to answer question appropriately. Presented tachycardic and hyporthermic. initial workup reviewed showed leukocytosis with an absolute neutrophil count of 18.3, INR is 1.2 VBG shows pH 6.71 with a pCO2 of 26. CMP shows a sodium 135 potassium 3.7 CO2 that is undetectable and anion gap of 31.7 creatinine 1.8 with a GFR of 29. EKG initially was afib with RVR. converted to ST. troponin was 1.26. Discussed with ED provider. Patient admitted to ICU. plan as follow: -DKA, type 2 without coma: - resolved SIRS with organ dysfunction, no clear sources of infection: - improving Watch for electrolyte imbalance. Replace by protocol Potassium and sodium are normalized UA negative Blood culture pending CT of the abdomen negative Chest x-ray reviewed. Suspected virus infection versus reactive pneumonitis Respiratory panel negative -Hypothermia: Likely secondary to above Core body temperature of 95.3. On huggy bear. Warmed infusion. -Elevated troponin: EKG stat. Shows sinus tach, with nonspecific ST changes cardiology consulted. Order to obtained. Heparin bolus given. Echo ordered One-time Lasix ordered Patient chest pain-free SCD for DVT prophylaxis. Protonix for GI bleed protection Full code NPO after MN, cardiology plan for possible cardiac cath
[2023-07-13] MEDS: humaLOG 100 UNITS/ML 3ML VIAL (SSI) SQ ×2 (16:59→20:40)
[2023-07-13 17:03] LABS: POC Glucose,Bedside 185 (70-110)
--- NOTE | 2023-07-13 17:32 | PC.NURSE ---
Pt has had numerous visitors this shift. she was able to ambulate with PT in the halls. pt is a/o x 4 at this time. lungs are clear throughout. bowel sounds are active in all quads. nad noted. pt reports bm this shift. pt family and friends currently at bedside. pt expresses interest in home glucometer system or Dexcom device to help monitor blood sugar upon dc. pt to be npo after midnight for potential cardiac cath in am.
[2023-07-13 20:39] LABS: POC Glucose,Bedside 173 (70-110)
[2023-07-13] MEDS: DOCUSATE SODIUM 100 MG CAPSULE PO (20:40)
[2023-07-13] MEDS: PANTOPRAZOLE 40MG TABLET 40 MG PO (20:40)
[2023-07-14] VITALS (21 sets, daily range): BP systolic 109–164; BP diastolic 60–93; PULSE 82–114; RESP 16–20; TEMP 36.5–37.1; O2SAT 92–99; BMI 25.7
--- NOTE | 2023-07-14 | IR_ITS ---
APPROVED REPORT Patient Location: OutpatientInpatient Underwriting Analyst: VERONICA Carter RT (R) PROCEDURES Left heart catheterization Left ventriculogram Selective coronary angiogram Drug-eluting stent deployment to the proximal and mid LAD Drug-eluting stent deployment to the first diagonal artery Drug-eluting stent deployment to the second diagonal artery Attempted angioplasty of the circumflex artery Drug-eluting stent deployment to the proximal and mid dominant right coronary INDICATION Acute non-ST elevation myocardial infarction, Coronary artery disease, Systolic congestive heart failure, Patient is not a current coronary bypass surgery candidate, Informed consent was obtained prior to the procedure. COMPLICATIONS None Estimated Blood Loss: Less than 10 ml TECHNIQUE One percent lidocaine used to anesthetize the right anterior aspect of the wrist. The right radial artery was accessed via the Seldinger technique. A 6 Burkinan sheath was placed in the right radial artery. 2.5 mg of Verapamil, 800 mcg of nitroglycerin, 1mg Lidocaine and 5000 U Heparin were given through the arterial sheath. The papa catheter was also used to perform left heart catheterization, left ventriculogram and selective coronary angiogram. At the end the diagnostic angiogram therapeutic heparin was administered giving a therapeutic ACT and the guide catheter was placed in the left main artery followed by wires placed on the first diagonal artery and and second diagonal artery. A 2 mm balloon was used to predilate the second diagonal artery. An additional 2.5 mm balloon was then placed in the first diagonal artery and deployed at 18 teri to reduce the ostial stenosis. A 2.5 mm x 18 mm Glover frontier stent was placed in the proximal second diagonal artery extending back into the mid LAD and deployed at 18 teri. Following this a 3 mm x 18 mm Glover frontier stent was placed in the proximal LAD extending into the first diagonal artery and deployed at 20 teri. The wire was placed back down into the second diagonal artery through the proximal LAD struts. A 2 mm balloon was used to open the struts from the proximal LAD which was placed in the first diagonal artery. The balloon open the struts going into the LAD itself. Following this a 3 mm x 22 mm Grover frontier stent was placed in the proximal portion of the 2.5 mm stent which was located in the mid LAD extending into the second diagonal artery. This was deployed at 20 teri. An additional 3 mm x 12 mm balloon was placed in the ostial segment of the second diagonal artery and deployed at 24 teri to further open the struts. A wire was placed into the small LAD distal to the second diagonal artery and a 2 mm balloon was deployed at 18 teri to open the struts which further and restored flow down a vestigial LAD. An additional 3 mm x 12 mm noncompliant balloon was placed in the proximal LAD extending to the first diagonal artery and deployed at 24 teri. Wires were placed into the circumflex artery which ran to the AV groove and a 2 mm balloon was advanced however this would not allow passage of the balloon due to the dense calcification's chronic occlusion. The guide catheter fell out therefore this guide catheter was placed in the right coronary artery and a wire was used to traverse the stenosis in the right coronary. A 3 mm x 30 mm Glover frontier stent was placed in the proximal to mid right coronary artery at 24 teri. A 3.75 x 12 mm noncompliant balloon was placed into the proximal portion of the stent and deployed at 24 teri to post dilate producing excellent angiographic results. Following this a 6 Burkinan JL 3 guide catheter was placed in the left main artery and wires were placed down into the LAD. A 3.5 x 26 mm Glover frontier stent was placed in the ostial left main artery extending to the proximal LAD and deployed at 24 teri reducing the stenosis to 0%. HILARY-3 flow was present on the left main artery before and after the procedure. HILARY II flow was present in the second diagonal artery before the procedure with HILARY-3 flow at the end of the procedure. HILARY II flow was present in the circumflex artery running in the AV groove before and after the procedure. HILARY III flow was present down the first diagonal artery before and after the procedure. HILARY-3 flow was present down the proximal and mid LAD before and after the procedure well HILARY II flow was present in the distal LAD before the procedure and HILARY-3 flow at the end of the procedure HILARY-3 flow was present on the right coronary before and after the procedure. At the end of procedure the apparatus was removed the sheath was removed and hemostasis was achieved using TR banding patient was transferred to the postop holding in stable condition ANGIOGRAPHIC RESULTS The left main artery Has a mid vessel to distal 60% stenosis The left anterior descending artery Has proximal 50% stenosis. First diagonal artery has an ostial 90% stenosis while the second diagonal artery has an ostial greater than 95% stenosis accompanied by HILARY II flow. Distal to the second diagonal artery the LAD is a small caliber vessel with HILARY II flow The circumflex artery Is a nondominant vessel and gives rise to a large ramus intermedius which is widely patent. The circumflex artery itself is a small caliber vessel and has a proximal calcified concentric greater than 90% stenosis accompanied by HILARY II flow The right coronary artery Is a large dominant vessel and has proximal calcified 80% stenosis The JACOBO ventriculogram reveals Dilated ventricle severely hypokinetic estimate ejection fraction 15% The left ventricular end-diastolic pressure 25 mmHg IMPRESSION Critical diffuse coronary disease as described above Successful stenting of the ostial proximal mid distal left main artery severe disease reduced to 0% with 1 drug-eluting stent Successful reconstruction of the ostial proximal and mid LAD with additional large bifurcating stents in a large first and second diagonal artery reconstructing the entire vessel. A total of 4 stents were used throughout the LAD Attempted angioplasty of a small calcified circumflex artery running through the AV groove which was deemed too small to pursue additional percutaneous revascularization Successful stenting of the proximal dominant right coronary severe disease reduced to 0% with 1 drug-eluting stent Total of 5 drug-eluting stents were used for the revascularization as described above Total of 8 balloons were used for the revascularization as described above PLAN 1. Effient 10 mg daily plus aspirin 81 mg daily 2. Aggressive diabetes control 3. LDL less than 55 to be achieved with high intensity statin 4. Standard therapy for systolic heart failure 5. LifeVest prior to discharge home Electronically signed by : Mike Atwood MD 07/14/2023 15:32:55
--- NOTE | 2023-07-14 05:20 | PC.NURSE ---
Patient has had a good shift. Has not had any complaints. Did get clipped for possible heart cath.
[2023-07-14 06:00] LABS: POC Glucose,Bedside 128 (70-110)
--- NOTE | 2023-07-14 07:41 | PC.NURSE ---
pt resting in bed. no complaints this morning.
[2023-07-14] MEDS: FENOFIBRATE 134MG CAPSULE 134 MG PO (09:00)
[2023-07-14] MEDS: DOCUSATE SODIUM 100 MG CAPSULE PO ×2 (09:00→20:36)
[2023-07-14] MEDS: EMPAGLIFLOZIN 10MG TABLET 20 MG PO (09:00)
[2023-07-14] MEDS: GABAPENTIN 400MG CAPSULE 400 MG PO ×2 (09:01→20:36)
[2023-07-14] MEDS: HEPARIN SODIUM 5,000 UNIT/ML VIAL 5000 UNIT SQ ×2 (09:01→20:48)
[2023-07-14 09:08] LABS: Chloride 108 mmol/L (98-107); Sodium 141 mmol/L (136-145)
[2023-07-14 09:09] LABS: Basophils # 0.1 K/mm3 (0-0.2); Basophils % 0.8 % (0.1-2.0); Eosinophils # 0.1 K/mm3 (0.0-0.4); Eosinophils % 1.4 % (0.1-12.0); Hematocrit 39.3 % (37.0-47.0); Hemoglobin 13.8 g/dL (12.2-16.2); Mean Corpuscular HGB Conc 35.1 g/dL (31.8-35.4); Mean Corpuscular Volume 91.1 fl (81-99); Mean Platelet Volume 8.4 fl (7.4-10.4); Monocytes # 0.3 K/mm3 (0.1-1.0); Monocytes % 3.4 % (1.7-9.3); Neutrophils # 5.1 K/mm3 (1.8-7.8); Neutrophils % 59.5 % (37.0-80.0); Platelet Count 169 K/mm3 (142-424); Potassium 3.1 mmoL/L (3.5-5.1); Red Blood Count 4.31 M/mm3 (4.20-5.40); Red Cell Distribution Width 13.3 % (11.5-17.5); White Blood Count 8.6 K/mm3 (4.8-10.8)
[2023-07-14 09:11] LABS: Blood Urea Nitrogen 10 mg/dl (7-17); Creatinine Clearance Estimated 167 mL/min (50-200); Estimated Glomerular Filt Rate 165 ml/min (>60); GFR (African American) 199 ML/MIN (>60)
[2023-07-14 09:12] LABS: Anion Gap 16.1 mEq/L (5-15); Calcium 8.6 mg/dl (8.4-10.2); Carbon Dioxide 20 mmol/L (22.0-30.0); Glucose 112 mg/dl (74-100)
--- NOTE | 2023-07-14 09:46 | HMH.OTEV ---
OT Inpatient Evaluation Rehab OT IP Evaluation Start: 07/12/23 09:44 Freq: ONCE Status: Active Protocol: Document 07/14/23 09:43 KALIN (Rec: 07/14/23 09:45 [facility] [id number]) Rehab OT IP Assessment Subjective History Pt oriented x 3 on arrival. Pt agreeable to engage in therapy evaluation. present and supportive during therapy evaluation. Pt admitted on 07/09/23 due AMS and DKA. History and physical: This is a 58-year-old female PMHx of NIDDM, HLD, presented to the emergency department initially for altered mental status weakness and dizziness. History obtained form ED and patient's . Per patient 's she is given a 3- day history of progressive nausea vomiting and generalized weakness. Patient did go to work yesterday but did not feel well. Patient reportedly visited the local today for her symptoms and had a comprehensive respiratory panel that was negative. She then returned home. She was found by a family member disoriented weak barely responsive but awake and maintaining her airway. She cannot walk unassisted. Admitted for treatment. Subjective I am ready to go home. Prior to being in the hospital , pt lived at home with her . Pt was normally independent with all ADLs and all IADLs. 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 Pt also still drove. Objective Patient Orientation Person,Place,Birthday Right Upper Extremity Gross ROM WFL Left Upper Extremity Gross ROM Min Limitation <25% Bed Mobility bed mobility-scooting,bed mobility - supine/sit Assist Level Supervision/Stand by Transfer Training Sit/Stand Transfer Assist Level Supervision/Stand by Chair Transfer Ability Supervision/Stand by Chair Transfer Technique Sit to/from Ambulatory Chair Transfer Assistive Devices None Lower Body Dressing Ability Standby Assistance Rehab OT IP prob,goals,plan Problems Date of Evaluation: 07/14/23 Rehab Potential Rehab Potential Innapropriate for Skilled Therapy Discharge Plan OT Discharge Plan Pt appears to be at her baseline with functional transfers and ADL independence . Pt can return home with her once she is medically stable per physician. Eval Complexity Eval Charge Codes 09733 - Moderate Complexity PHYSICIAN CERTIFICATION: I certify the specified therapy services for Madeline Greenfield are required, authorized, and reviewed every 30 days.
--- NOTE | 2023-07-14 09:58 | EXP.PULM.PN ---
Subjective *Date: 07/14/23 *Time: 11:01 Interval history: Patient denies any respiratory complaints. No acute respiratory vents overnight. Pulmonology Exam Inpatient Vital signs and Labs for Last 24 Hours: Temp Pulse Resp BP Pulse Ox O2 Del Method 98.1 F 101 H 20 120/73 98 Room Air 07/14/23 08:00 07/14/23 08:00 07/14/23 08:00 07/14/23 08:00 07/14/23 08:00 07/14/23 08:00 Laboratory Results - last 24 hr 07/13/23 12:16: POC Glucose 146 H 07/13/23 16:54: POC Glucose 185 H 07/13/23 20:31: POC Glucose 173 H 07/14/23 05:41: POC Glucose 128 H 07/14/23 08:52: WBC 8.6 D, RBC 4.31, Hgb 13.8, Hct 39.3, MCV 91.1, MCH 32.0 H, MCHC 35.1, RDW 13.3, Plt Count 169, MPV 8.4, Neut % (Auto) 59.5, Lymph % (Auto) 35.0, [place] % (Auto) 3.4, Eos % (Auto) 1.4, Baso % (Auto) 0.8, Neut # (Auto) 5.1, Lymph # (Auto) 3.0, [place] # (Auto) 0.3, Eos # (Auto) 0.1, Baso # (Auto) 0.1, Sodium 141, Potassium 3.1 L, Chloride 108 H, Carbon Dioxide 20 L, Anion Gap 16.1 H, BUN 10, Creatinine 0.40 L, Estimated Creat Clear 167, Estimated GFR 165, Est GFR ( Amer) 199 D, Glucose 112 H, Calcium 8.6 I & O for Labs for Last 24 Hours: Intake & Output 07/11/23 07/12/23 07/13/23 07/14/23 23:59 23:59 23:59 23:59 Intake Total 4173.066 / 4443.066 2218 / 2318 1070 / 1070 Output Total 2049 / 2049 1100 / 1100 300 / 300 0 / 0 Balance 2123.066 / 2393.066 1118 / 1218 770 / 770 0 / 0 Weight 141 lb 1.533 oz 147 lb 11.355 oz 148 lb 9.465 oz 150 lb 5.684 oz Microbiology Reports for the Last 24 Hours: Microbiology 07/09/23 21:25 Blood Blood Culture - Preliminary 07/09/23 21:25 Blood Blood Culture - Preliminary Constitutional: Present mild distress Head: Present normocephalic and atraumatic ENT: Present normal exam, normal oropharynx and mucous membranes moist Neck: Present normal inspection and full ROM Respiratory: Present normal respiratory effort and able to speak in complete sentences; Absent prolonged expiratory phase, respiratory distress, wheezes or crackles Cardiac: Present S1/S2, Tachycardia and radial pulses present GI: Present soft and distention; Absent tenderness or guarding Rectal (female): Present deferred (female): Present deferred Skin: Present intact; Absent cyanosis or jaundice Neuro: Present alert, awake and oriented x 3 Extremities: Present normal inspection; Absent clubbing or cyanosis Psychiatric: Present normal affect and cooperative Assessment and Plan *Assessment and plan (1) Multiple pulmonary nodules: Status: Acute Category: Medical Code(s): R91.8 - Other nonspecific abnormal finding of lung field (2) Pneumonia: Status: Acute Qualifiers: Laterality: unspecified laterality Lung location: unspecified part of lung Pneumonia type: due to unspecified organism Qualified Code(s): J18.9 - Pneumonia, unspecified organism Category: Medical Code(s): J18.9 - Pneumonia, unspecified organism Plan Ms. Greenfield is a 58-year-old with reported history of diabetes mellitus, dyspnea presented today with worsening altered mentation and dizziness admitted and being managed for DKA and pulmonary was called for further evaluation and management. Significant leukocytosis upon admission improving. VBG and ABG upon admission showed severe metabolic acidosis with a pH of 6.90 with a pCO2 of 13.4 with a bicarb of [address] chest upon admission bilateral round nodules some of them are partially calcified. No prior imaging available to review. Also noted to have groundglass opacities. COVID-19 and flu PCR panel negative. Patient admits prior history of histoplasmosis around 1999. Had a bronchoscopy at that point of time resulted positive. No treatment needed at that time. Her nodules on the CT scan are likely from prior granulomatous inflammation. Never smoker. No significant prior respiratory complaints. However no recent prior imaging available for comparison. Noncompliant with age-appropriate screening. Interval update: No acute respiratory events overnight. Continued to remain on room air. Plan: -For the noted pulmonary nodules will follow the patient in pulmonary clinic in 12 months with a repeat CT chest without contrast. Will schedule this prior to patient's discharge. # Thank you for involving pulmonary in this patient care. Will continue to follow.
[2023-07-14 11:46] LABS: POC Glucose,Bedside 102 (70-110)
--- NOTE | 2023-07-14 12:15 | P.PN_ITS ---
Subjective *Date: 07/14/23 *Time: 12:15 Interval history: Patient is seen and evaluated at the bedside, lying in bed, no complains of CP, SOB, N/V. Exam Data for Last 24 hours Vital signs and Labs for Last 24 Hours: Temp Pulse Resp BP Pulse Ox O2 Del Method 98.1 F 101 H 20 120/73 98 Room Air 07/14/23 08:00 07/14/23 08:00 07/14/23 08:00 07/14/23 08:00 07/14/23 08:00 07/14/23 09:00 Laboratory Results - last 24 hr 07/13/23 12:16: POC Glucose 146 H 07/13/23 16:54: POC Glucose 185 H 07/13/23 20:31: POC Glucose 173 H 07/14/23 05:41: POC Glucose 128 H 07/14/23 08:52: WBC 8.6 D, RBC 4.31, Hgb 13.8, Hct 39.3, MCV 91.1, MCH 32.0 H, MCHC 35.1, RDW 13.3, Plt Count 169, MPV 8.4, Neut % (Auto) 59.5, Lymph % (Auto) 35.0, [place] % (Auto) 3.4, Eos % (Auto) 1.4, Baso % (Auto) 0.8, Neut # (Auto) 5.1, Lymph # (Auto) 3.0, [place] # (Auto) 0.3, Eos # (Auto) 0.1, Baso # (Auto) 0.1, Sodium 141, Potassium 3.1 L, Chloride 108 H, Carbon Dioxide 20 L, Anion Gap 16.1 H, BUN 10, Creatinine 0.40 L, Estimated Creat Clear 167, Estimated GFR 165, Est GFR ( Amer) 199 D, Glucose 112 H, Calcium 8.6 07/14/23 11:19: POC Glucose 102 I & O for Last 24 hours: Intake & Output 07/11/23 07/12/23 07/13/23 07/14/23 23:59 23:59 23:59 23:59 Intake Total 4173.066 / 4443.066 2218 / 2318 1070 / 1070 Output Total 2049 / 2049 1100 / 1100 300 / 300 0 / 0 Balance 2123.066 / 2393.066 1118 / 1218 770 / 770 0 / 0 Weight 64 kg 67 kg 67.4 kg 68.2 kg Microbiology Reports for the Last 24 Hours: Microbiology 07/09/23 21:25 Blood Blood Culture - Preliminary 07/09/23 21:25 Blood Blood Culture - Preliminary Constitutional Constitutional: no acute distress *Routine HEENT Exam Head: Present normocephalic Eye: Present EOMI and PERRL ENT: Present mucous membranes moist *Routine Neck Exam Neck: Present supple; Absent lymphadenopathy *Routine Respiratory Exam Respiratory: Present CTA bilaterally *Routine Cardiovascular Exam Cardiovascular: Present RRR *Routine Abdominal Exam Abdominal: Present soft and normoactive bowel sounds; Absent tenderness *Routine Extremities Exam Extremities: Absent cyanosis, clubbing or edema *Routine Skin Exam Skin: Present warm; Absent rash *Routine Neurological Exam Neurological: Present alert and oriented X3 Assessment and Plan *Assessment and plan (1) DKA, type 2: Status: Acute Qualifiers: Diabetes mellitus complication detail: without coma Qualified Code(s): E11.10 - Type 2 diabetes mellitus with ketoacidosis without coma Category: Medical Code(s): E11.10 - Type 2 diabetes mellitus with ketoacidosis without coma (2) SIRS without infection with organ dysfunction: Status: Acute Category: Medical Code(s): R65.11 - Systemic inflammatory response syndrome (SIRS) of non-infectious origin with acute organ dysfunction (3) Hypothermia: Status: Acute Qualifiers: Encounter type: initial encounter Qualified Code(s): T68.XXXA - Hypothermia, initial encounter Category: Medical Code(s): T68.XXXA - Hypothermia, initial encounter (4) Elevated troponin: Status: Acute Category: Medical Code(s): R79.89 - Other specified abnormal findings of blood chemistry Plan 58-year-old female PMHx of NIDDM, HLD, presented to the emergency department initially for altered mental status weakness and dizziness. History obtained form ED and patient's . Per patient's she is given a 3-day history of progressive nausea vomiting and generalized weakness. On arrival patient visible sick. remains alert and oriented, and able to answer question appropriately. Presented tachycardic and hyporthermic. initial workup reviewed showed leukocytosis with an absolute neutrophil count of 18.3, INR is 1.2 VBG shows pH 6.71 with a pCO2 of 26. CMP shows a sodium 135 potassium 3.7 CO2 that is undetectable and anion gap of 31.7 creatinine 1.8 with a GFR of 29. EKG initially was afib with RVR. converted to ST. troponin was 1.26. Patient was seen and evaluated at the bedside on the day of discharge. Patient is stable for discharge. Patient wishes to be discharged. All patient questions were answered and patient was given time to ask questions. Patient was discharged in stable condition. Patient understands that she can return to ER in case of any sudden changes in health. Total time spent on DC - 38 mins -DKA, type 2 without coma: - resolved SIRS with organ dysfunction, no clear sources of infection: - improved -Hypothermia: resolved -Elevated troponin: stable Plan for cardiac cath per cardiology EKG stat. Shows sinus tach, with nonspecific ST changes cardiology consulted. Order to obtained. Heparin bolus given. Echo ordered One-time Lasix ordered Patient chest pain-free SCD for DVT prophylaxis. Protonix for GI bleed protection Full code
--- NOTE | 2023-07-14 13:25 | PC.NURSE ---
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
[2023-07-14] MEDS: HEPARIN 1,000 UNITS/500ML NS (CATH LAB) 3000 UNIT IV (13:43)
[2023-07-14] MEDS: LIDOCAINE 1% 10ML MDV 20 ML IJ (13:43)
[2023-07-14] MEDS: 0.9 % SODIUM CHLORIDE 500 ML 25 ML IV (13:43)
[2023-07-14] MEDS: VERAPAMIL 2.5MG/ML 2ML VIAL 2.5 MG IV (13:44)
[2023-07-14] MEDS: HEPARIN 1,000 UNITS/ML 10ML VIAL (CATH LAB) 10000 UNIT IV (13:44)
[2023-07-14] MEDS: diphenhydrAMINE 50MG/ML VIAL 50 MG IV (13:44)
[2023-07-14] MEDS: NITROGLYCERIN 800MCG/8ML SYR (CATH LAB) 800 MCG IA (13:44)
[2023-07-14] MEDS: MIDAZOLAM HCL 1MG/1ML 5ML VIAL 1 MG IV (14:05)
[2023-07-14] MEDS: FENTANYL 100MCG/2ML VIAL 50 MCG IV (14:05)
--- NOTE | 2023-07-14 15:03 | P.PN_ITS ---
Subjective Subjective Date: 07/14/23 Time: 09:30 Principal diagnosis: DKA, NSTEMI, HFrEF Interval history: This is a 58-year-old white female who presented to the emergency department initially with an altered mental status and dizziness. The patient had not felt well for about 3 days prior to coming into the emergency department. She had nausea, vomiting and generalized weakness. She felt so bad she could not go to work. She visited urgent care first and was negative on the respiratory panel. She returned home and then was brought back to the emergency department because she was barely will to walk, disoriented and barely responsive. The patient was subsequently admitted to the hospital for DKA. She was also found to have an elevated troponin consistent with a non-STEMI. The patient was also found to have new onset cardiomyopathy with an estimated ejection fraction of 20%. Left cardiac catheterization was postponed due to her altered mental status. The patient did have an altered mental status for several days. She is alert and oriented now. She is able to answer all of her questions appropriately and is up walking in the hallway with no symptoms. She denies any chest pain or pressure. She denies any shortness of breath or edema. She denies any fever, chills, nausea, vomiting, diarrhea, PND or orthopnea. Exam Data for Last 24 hours Vital signs and Labs for Last 24 Hours: Temp Pulse Resp BP Pulse Ox O2 Del Method 97.8 F 105 H 18 123/72 98 Room Air 07/14/23 12:00 07/14/23 12:00 07/14/23 12:00 07/14/23 12:00 07/14/23 12:00 07/14/23 12:00 Laboratory Results - last 24 hr 07/13/23 16:54: POC Glucose 185 H 07/13/23 20:31: POC Glucose 173 H 07/14/23 05:41: POC Glucose 128 H 07/14/23 08:52: WBC 8.6 D, RBC 4.31, Hgb 13.8, Hct 39.3, MCV 91.1, MCH 32.0 H, MCHC 35.1, RDW 13.3, Plt Count 169, MPV 8.4, Neut % (Auto) 59.5, Lymph % (Auto) 35.0, Banner % (Auto) 3.4, Eos % (Auto) 1.4, Baso % (Auto) 0.8, Neut # (Auto) 5.1, Lymph # (Auto) 3.0, Banner # (Auto) 0.3, Eos # (Auto) 0.1, Baso # (Auto) 0.1, Sodium 141, Potassium 3.1 L, Chloride 108 H, Carbon Dioxide 20 L, Anion Gap 16.1 H, BUN 10, Creatinine 0.40 L, Estimated Creat Clear 167, Estimated GFR 165, Est GFR ( Amer) 199 D, Glucose 112 H, Calcium 8.6 07/14/23 11:19: POC Glucose 102 I & O for Last 24 hours: Intake & Output 07/11/23 07/12/23 07/13/23 07/14/23 23:59 23:59 23:59 23:59 Intake Total 4173.066 / 4443.066 2218 / 2318 1070 / 1070 Output Total 0 / 0 1100 / 1100 300 / 300 0 / 0 Balance 2123.066 / 2393.066 1118 / 1218 770 / 770 0 / 0 Weight 141 lb 1.533 oz 147 lb 11.355 oz 148 lb 9.465 oz 150 lb 5.684 oz Microbiology Reports for the Last 24 Hours: Microbiology 07/09/23 21:25 Blood Blood Culture - Preliminary 07/09/23 21:25 Blood Blood Culture - Preliminary Constitutional Constitutional: no acute distress and average body habitus *Routine HEENT Exam Head: Present normocephalic and atraumatic ENT: Present mucous membranes moist *Routine Neck Exam Neck: Present supple, full ROM and normal carotid upstroke; Absent JVD, carotid bruit or lymphadenopathy *Routine Respiratory Exam Respiratory: Present CTA bilaterally, normal respiratory effort, able to speak in complete sentences and symmetric chest movement *Routine Cardiovascular Exam Cardiovascular: Present RRR, Normal S1 and Normal S2; Absent murmur or gallop *Routine Abdominal Exam Abdominal: Present soft and normoactive bowel sounds; Absent tenderness, distended or organomegaly *Routine Extremities Exam Extremities: Present full ROM, pulses intact and normal capillary refill; Absent cyanosis, clubbing or edema *Routine Skin Exam Skin: Present intact and warm; Absent erythema *Routine Neurological Exam Neurological: Present alert, oriented X3 and CN II-XII intact; Absent sensory deficit or motor deficit Routine Psychiatric Exam Psychiatric: Present normal affect Progress Note: A&P Assessment and plan (1) NSTEMI (non-ST elevated myocardial infarction): Status: Acute (2) Elevated troponin: Status: Acute (3) DKA, type 2: Status: Acute (4) SIRS without infection with organ dysfunction: Status: Acute (5) Hyperlipidemia: Status: Acute (6) Cardiomyopathy: Status: Acute (7) LV dysfunction: Status: Acute (8) Diabetes mellitus: Status: Acute (9) History of hypertension: Status: Acute Assessment and Plan Assessment and Plan for All Diagnoses:: Plan: 1. This is a 58-year-old white female who was found to be in DKA and had altered mental status on admission. Her DKA has improved. Will defer management this to the hospitalist. 2. The patient also had an elevated troponin consistent with a non-STEMI. However her left cardiac catheterization was postponed due to her altered mental status. In the setting of her non-STEMI and new onset cardiomyopathy we will plan to proceed with left cardiac catheterization at this time as her mental status is back to baseline. The patient has been educated the risk and benefits of proceeding with left cardiac catheterization. The patient verbalized understanding and is agreeable in proceeding with the procedure. 3. The patient will be n.p.o. in preparation for left cardiac catheterization. 4. The patient will get IV fluids and premedications prior to the procedure. 5. The patient has severe LV dysfunction. She is increased risk for sudden cardiac due to his severe LV dysfunction. The patient will need a LifeVest in place prior to discharge home. Will get her LifeVest ordered today. 6. Will start the patient on Toprol XL 25 mg daily for HFrEF as well as Entresto 24/26 mg p.o. twice daily. 7. Continue Jardiance for HFrEF. 8. Will start the patient on spironolactone 25 mg p.o. daily for HFrEF. 9. Her blood pressure is well-controlled. 10. Her LDL goal is less than 55. Will get a lipid panel in the morning. Stop pravastatin and start Lipitor 40 mg p.o. nightly. 11. Recommend aspirin 81 mg daily. 12. Further recommendations be made pending the patient's response to treatment and the results of her left cardiac catheterization today. Thank you for the opportunity to participate in the care of this patient. All recommendations and orders are per Dr. Olea.
[2023-07-14] MEDS: PRASUGREL 10MG TAB 60 MG PO (15:10)
[2023-07-14] MEDS: IOPAMIDOL-370 (76%);100ML BOTTLE 375 ML IV (15:31)
[2023-07-14 15:34] LABS: CATHL Activated Clotting Time > 400 SEC (74-125)
[2023-07-14 15:35] LABS: CATHL Activated Clotting Time 397 SEC (74-125)
--- NOTE | 2023-07-14 15:57 | EXP.DC.SUM ---
General Admission date:: 07/10/23 Discharge date: 07/14/23 HPI HPI HPI: This is a 58-year-old female PMHx of NIDDM, HLD, presented to the emergency department initially for altered mental status weakness and dizziness. History obtained form ED and patient's . Per patient's she is given a 3-day history of progressive nausea vomiting and generalized weakness. Patient did go to work yesterday but did not feel well. Patient reportedly visited the local today for her symptoms and had a comprehensive respiratory panel that was negative. She then returned home. She was found by a family member disoriented weak barely responsive but awake and maintaining her airway. She cannot walk unassisted. Admitted for treatment. Hospital Course Hospital Course Hospital Course: see same date progress note Exam Data for Last 24 hours Vital signs and Labs for Last 24 Hours: Temp Pulse Resp BP Pulse Ox O2 Del Method 97.9 F 104 H 18 130/82 98 Room Air 07/14/23 15:35 07/14/23 15:35 07/14/23 15:35 07/14/23 15:35 07/14/23 15:35 07/14/23 15:35 Laboratory Results - last 24 hr 07/13/23 16:54: POC Glucose 185 H 07/13/23 20:31: POC Glucose 173 H 07/14/23 05:41: POC Glucose 128 H 07/14/23 08:52: WBC 8.6 D, RBC 4.31, Hgb 13.8, Hct 39.3, MCV 91.1, MCH 32.0 H, MCHC 35.1, RDW 13.3, Plt Count 169, MPV 8.4, Neut % (Auto) 59.5, Lymph % (Auto) 35.0, Millard % (Auto) 3.4, Eos % (Auto) 1.4, Baso % (Auto) 0.8, Neut # (Auto) 5.1, Lymph # (Auto) 3.0, Millard # (Auto) 0.3, Eos # (Auto) 0.1, Baso # (Auto) 0.1, Sodium 141, Potassium 3.1 L, Chloride 108 H, Carbon Dioxide 20 L, Anion Gap 16.1 H, BUN 10, Creatinine 0.40 L, Estimated Creat Clear 167, Estimated GFR 165, Est GFR ( Amer) 199 D, Glucose 112 H, Calcium 8.6 07/14/23 11:19: POC Glucose 102 07/14/23 15:08: Activated Clotting Time 397 H* 07/14/23 15:43: Activated Clotting Time > 400 H* I & O for Last 24 hours: Intake & Output 07/11/23 07/12/23 07/13/23 07/14/23 23:59 23:59 23:59 23:59 Intake Total 4173.066 / 4443.066 2218 / 2318 1070 / 1070 Output Total 2049 / 2049 1100 / 1100 300 / 300 0 / 0 Balance 2123.066 / 2393.066 1118 / 1218 770 / 770 0 / 0 Weight 64 kg 67 kg 67.4 kg 68.2 kg Microbiology Reports for the Last 24 Hours: Microbiology 07/09/23 21:25 Blood Blood Culture - Preliminary 07/09/23 21:25 Blood Blood Culture - Preliminary Results Data Completed and Pending Labs on day of discharge: Labs from last 24 hours 07/14/23 07/14/23 07/14/23 15:43 15:08 11:19 WBC RBC Hgb Hct MCV MCH MCHC RDW Plt Count MPV Neut % (Auto) Lymph % (Auto) Millard % (Auto) Eos % (Auto) Baso % (Auto) Neut # (Auto) Lymph # (Auto) Millard # (Auto) Eos # (Auto) Baso # (Auto) Activated Clotting Time > 400 H* 397 H* Sodium Potassium Chloride Carbon Dioxide Anion Gap BUN Creatinine Estimated Creat Clear Estimated GFR Est GFR ( Amer) Glucose POC Glucose 102 Calcium 07/14/23 07/14/23 07/13/23 08:52 05:41 20:31 WBC 8.6 D RBC 4.31 Hgb 13.8 Hct 39.3 MCV 91.1 MCH 32.0 H MCHC 35.1 RDW 13.3 Plt Count 169 MPV 8.4 Neut % (Auto) 59.5 Lymph % (Auto) 35.0 Millard % (Auto) 3.4 Eos % (Auto) 1.4 Baso % (Auto) 0.8 Neut # (Auto) 5.1 Lymph # (Auto) 3.0 Millard # (Auto) 0.3 Eos # (Auto) 0.1 Baso # (Auto) 0.1 Activated Clotting Time Sodium 141 Potassium 3.1 L Chloride 108 H Carbon Dioxide 20 L Anion Gap 16.1 H BUN 10 Creatinine 0.40 L Estimated Creat Clear 167 Estimated GFR 165 Est GFR ( Amer) 199 D Glucose 112 H POC Glucose 128 H 173 H Calcium 8.6 07/13/23 16:54 WBC RBC Hgb Hct MCV MCH MCHC RDW Plt Count MPV Neut % (Auto) Lymph % (Auto) Millard % (Auto) Eos % (Auto) Baso % (Auto) Neut # (Auto) Lymph # (Auto) Millard # (Auto) Eos # (Auto) Baso # (Auto) Activated Clotting Time Sodium Potassium Chloride Carbon Dioxide Anion Gap BUN Creatinine Estimated Creat Clear Estimated GFR Est GFR ( Amer) Glucose POC Glucose 185 H Calcium Preliminary micro results at discharge 07/09/23 21:25 Blood Culture - Preliminary Blood 07/09/23 21:25 Blood Culture - Preliminary Blood DS: Diagnosis Discharge Diagnosis (1) NSTEMI (non-ST elevated myocardial infarction): Status: Acute Code(s): I21.4 - Non-ST elevation (NSTEMI) myocardial infarction (2) Elevated troponin: Status: Acute Code(s): R79.89 - Other specified abnormal findings of blood chemistry (3) DKA, type 2: Status: Acute Code(s): E11.10 - Type 2 diabetes mellitus with ketoacidosis without coma Qualifiers: Diabetes mellitus complication detail: without coma Qualified Code(s): E11.10 - Type 2 diabetes mellitus with ketoacidosis without coma (4) SIRS without infection with organ dysfunction: Status: Acute Code(s): R65.11 - Systemic inflammatory response syndrome (SIRS) of non-infectious origin with acute organ dysfunction (5) Hyperlipidemia: Status: Acute Code(s): E78.5 - Hyperlipidemia, unspecified (6) Cardiomyopathy: Status: Acute Code(s): I42.9 - Cardiomyopathy, unspecified (7) LV dysfunction: Status: Acute Code(s): I51.9 - Heart disease, unspecified (8) Diabetes mellitus: Status: Acute Code(s): E11.9 - Type 2 diabetes mellitus without complications (9) History of hypertension: Status: Acute Code(s): Z86.79 - Personal history of other diseases of the circulatory system Meds Home Medications and Allergies Home Medications Medication Instructions Recorded Confirmed Type empagliflozin 25 mg tablet 25 mg PO DAILY 05/19/21 07/10/23 History (Jardiance) gabapentin 400 mg capsule 400 mg PO TID 05/19/21 07/10/23 History fenofibrate nanocrystallized 145 145 mg PO DAILY 05/22/23 07/10/23 History mg tablet pravastatin 40 mg tablet 40 mg PO DAILY 05/22/23 07/10/23 History meclizine 25 mg tablet 25 mg PO Q6HP PRN diziness #30 tabs 07/09/23 07/10/23 Rx metformin 500 mg tablet 500 mg PO BID 07/10/23 07/10/23 History aspirin 81 mg tablet,delayed 81 mg PO DAILY 30 days #30 tabs 07/14/23 Rx release metoprolol succinate 25 mg 25 mg PO DAILY 30 days #30 tabs 07/14/23 Rx tablet,extended release 24 hr pantoprazole 40 mg tablet,delayed 40 mg PO HS 30 days #30 tabs 07/14/23 Rx release prasugrel 10 mg tablet 10 mg PO DAILY 30 days #30 tabs 07/14/23 Rx sacubitril 24 mg-valsartan 26 mg 1 tab PO BID 30 days #60 tabs 07/14/23 Rx tablet (Entresto) spironolactone 25 mg tablet 25 mg PO DAILY 30 days #30 tabs 07/14/23 Rx New Prescriptions to Start Prescriptions: aspirin Clarke,Leobardo metoprolol succinate Clarke,Leobardo pantoprazole Clarke,Leobardo prasugrel Clarke,Leobardo sacubitril-valsartan [Entresto] Clarke,Leobardo spironolactone Clarke,Leobardo Allergies Allergy/AdvReac Type Severity Reaction Status Date / Time No Known Allergies Allergy Verified 07/09/23 09:36 Discharge Plan Disposition Patient Disposition: Home, Self-Care Discharge Order Discharge Orders: Discharge Order (Routine); Ordered 07/14/23 Ordered By: Leobardo Mir Follow up Plan Follow up with: Mike Atwood MD [Staff Physician] - 2 weeks Marilynn Murphy MD [Physician] - Enter time for follow up (ct scan w/c con. scheduled for 07/14/2024 @ 3:30) Prescriptions/Medication Reconciliation: New aspirin 81 mg Tablet,Delayed Release (Dr/Ec) 81 mg PO DAILY 30 Days Qty: 30 0RF spironolactone 25 mg Tablet 25 mg PO DAILY 30 Days Qty: 30 0RF Entresto 24-26 mg Tablet 1 tab PO BID 30 Days Qty: 60 0RF pantoprazole 40 mg Tablet,Delayed Release (Dr/Ec) 40 mg PO HS 30 Days Qty: 30 0RF metoprolol succinate 25 mg Tablet Extended Release 24 Hr 25 mg PO DAILY 30 Days Qty: 30 0RF prasugrel 10 mg Tablet 10 mg PO DAILY 30 Days Qty: 30 0RF Continued Jardiance 25 mg tablet 25 mg PO DAILY gabapentin 400 mg capsule 400 mg PO TID pravastatin 40 mg tablet 40 mg PO DAILY fenofibrate nanocrystallized 145 mg tablet 145 mg PO DAILY meclizine 25 mg tablet 25 mg PO Q6HP PRN (Reason: diziness) Qty: 30 0RF metformin 500 mg tablet 500 mg PO BID Patient Comments: TAKE 1 TABLET BY MOUTH TWICE A DAY Other Ambulatory Orders: CT chest wo con (Routine) Timeframe: 12 Month Facility: [facility] - Location: Radiology Ordered By: Marilynn Murphy Problem Reconciliation Problems Reviewed?: Yes Patient Discharge Instructions ACTIVITY: Ambulate as tolerated DIET: advance to your usual diet Patient Instructions: DI for Heart Failure, DI for Pneumonia -- Adult, DI for Cardiac Catheterization, DI for Surgical Site Infection, DI for Diabetic Ketoacidosis, DI for Altered Mental Status Providers Primary Care Provider: Provider,Referral Admit Provider: Leobardo Mir Attending Provider: Leobardo Mir
[2023-07-14] MEDS: METOPROLOL SUCCINATE XL 25MG TABLET 25 MG PO (16:53)
[2023-07-14] MEDS: SPIRONOLACTONE 25MG TABLET 25 MG PO (16:53)
[2023-07-14 17:04] LABS: POC Glucose,Bedside 89 (70-110)
[2023-07-14] MEDS: MORPHINE 2MG/ML SYRINGE 2 MG IV (20:36)
[2023-07-14] MEDS: PANTOPRAZOLE 40MG TABLET 40 MG PO (20:36)
[2023-07-14] MEDS: ATORVASTATIN 40MG TABLET 40 MG PO (20:36)
[2023-07-14] MEDS: ONDANSETRON 4MG/2ML VIAL 4 MG IV (20:37)
[2023-07-15] VITALS (8 sets, daily range): BP systolic 91–114; BP diastolic 53–66; PULSE 96–109; RESP 17–33; TEMP 36.4–37; O2SAT 91–100; BMI 25.3
[2023-07-15 06:12] LABS: POC Glucose,Bedside 119 (70-110)
[2023-07-15 06:12] LABS: POC Glucose,Bedside 121 (70-110)
[2023-07-15 06:21] LABS: Basophils # 0.1 K/mm3 (0-0.2); Basophils % 0.5 % (0.1-2.0); Eosinophils # 0.1 K/mm3 (0.0-0.4); Eosinophils % 0.6 % (0.1-12.0); Hemoglobin 13.3 g/dL (12.2-16.2); Lymphocytes # 2.2 K/mm3 (0.7-4.5); Lymphocytes % 19.9 % (10-50); Mean Corpuscular HGB Conc 33.2 g/dL (31.8-35.4); Mean Corpuscular Hemoglobin 31.1 pg (27.0-31.2); Mean Corpuscular Volume 93.8 fl (81-99); Mean Platelet Volume 8.2 fl (7.4-10.4); Monocytes # 0.5 K/mm3 (0.1-1.0); Monocytes % 4.4 % (1.7-9.3); Neutrophils # 8.3 K/mm3 (1.8-7.8); Neutrophils % 74.7 % (37.0-80.0); Platelet Count 198 K/mm3 (142-424); Red Blood Count 4.26 M/mm3 (4.20-5.40); Red Cell Distribution Width 13.4 % (11.5-17.5); White Blood Count 11.1 K/mm3 (4.8-10.8)
[2023-07-15 06:32] LABS: Chloride 110 mmol/L (98-107)
[2023-07-15 06:33] LABS: Potassium 3.8 mmoL/L (3.5-5.1); Sodium 136 mmol/L (136-145)
[2023-07-15 06:35] LABS: Alanine Aminotransferase 15 U/L (12-78); Alkaline Phosphatase 55 U/L (38-126); Anion Gap 19.8 mEq/L (5-15); Aspartate Amino Transferase 34 U/L (14-36); Bilirubin,Direct 0.4 mg/dl (0.0-0.4); Bilirubin,Indirect 0.1 mg/dL (0.0-0.9); Bilirubin,Total 0.5 mg/dl (0.2-1.3); Bilirubin,Unconjugated 0.1 mg/dL (0.0-1.1); Blood Urea Nitrogen 7 mg/dl (7-17); Calcium 8.3 mg/dl (8.4-10.2); Cholesterol 113 mg/dl (140-200); Estimated Glomerular Filt Rate 103 ml/min (>60); GFR (African American) 125 ML/MIN (>60); Glucose 126 mg/dl (74-100); Triglycerides 172 mg/dl (30-150); VLDL Cholesterol 34 mg/dL (0-40)
[2023-07-15 06:36] LABS: Albumin Level 2.9 g/dl (3.5-5.0); Chol/HDL Ratio 3.8 (1-3.5); HDL Cholesterol 30 mg/dl (40-60); Total Protein,Serum 5.6 g/dl (6.3-8.2)
[2023-07-15 06:47] LABS: Direct LDL Cholesterol 65.08 mg/dL (100-129)
[2023-07-15 07:04] LABS: Creatinine Clearance Estimated 162 mL/min (50-200)
[2023-07-15 07:09] LABS: Carbon Dioxide 10 mmol/L (22.0-30.0)
[2023-07-15] MEDS: METFORMIN 500MG TABLET 500 MG PO ×2 (09:31→17:03)
[2023-07-15] MEDS: EMPAGLIFLOZIN 10MG TABLET 20 MG PO (09:33)
[2023-07-15] MEDS: GABAPENTIN 400MG CAPSULE 400 MG PO ×2 (09:34→20:49)
[2023-07-15] MEDS: DOCUSATE SODIUM 100 MG CAPSULE PO ×2 (09:34→20:49)
[2023-07-15] MEDS: FENOFIBRATE 134MG CAPSULE 134 MG PO (09:34)
[2023-07-15] MEDS: ASPIRIN EC 81MG TABLET 81 MG PO (09:35)
[2023-07-15] MEDS: METOPROLOL SUCCINATE XL 25MG TABLET 25 MG PO (09:35)
[2023-07-15] MEDS: HEPARIN SODIUM 5,000 UNIT/ML VIAL 5000 UNIT SQ (09:35)
[2023-07-15] MEDS: SACUBITRIL/VALSARTAN 24-26MG TABLET 1 EACH PO (09:35)
[2023-07-15] MEDS: SPIRONOLACTONE 25MG TABLET 25 MG PO (09:35)
[2023-07-15] MEDS: PRASUGREL 10MG TAB 10 MG PO (09:35)
--- NOTE | 2023-07-15 09:42 | EXP.PULM.PN ---
Subjective *Date: 07/15/23 *Time: 09:42 Pulmonology Exam Inpatient Vital signs and Labs for Last 24 Hours: Temp Pulse Resp BP Pulse Ox O2 Del Method O2 Flow Rate 97.6 F 100 H 17 114/60 97 Room Air 15 07/15/23 08:00 07/15/23 08:04 07/15/23 08:00 07/15/23 08:00 07/15/23 08:00 07/15/23 08:00 07/15/23 04:00 Laboratory Results - last 24 hr 07/14/23 11:19: POC Glucose 102 07/14/23 15:08: Activated Clotting Time 397 H* 07/14/23 15:43: Activated Clotting Time > 400 H* 07/14/23 16:48: POC Glucose 89 07/14/23 20:28: POC Glucose 121 H 07/15/23 06:01: WBC 11.1 H D, RBC 4.26, Hgb 13.3, Hct 40.0, MCV 93.8, MCH 31.1, MCHC 33.2, RDW 13.4, Plt Count 198, MPV 8.2, Neut % (Auto) 74.7, Lymph % (Auto) 19.9, Jones % (Auto) 4.4, Eos % (Auto) 0.6, Baso % (Auto) 0.5, Neut # (Auto) 8.3 H, Lymph # (Auto) 2.2, Jones # (Auto) 0.5, Eos # (Auto) 0.1, Baso # (Auto) 0.1, Sodium 136, Potassium 3.8 D, Chloride 110 H, Carbon Dioxide 10 L D, Anion Gap 19.8 H, BUN 7 D, Creatinine 0.60 D, Estimated Creat Clear 162, Estimated GFR 103, Est GFR ( Amer) 125 D, Glucose 126 H, Calcium 8.3 L, Total Bilirubin 0.5, Direct Bilirubin 0.4, Conjugated Bilirubin 0.0, Indirect Bilirubin 0.1, Unconjugated Bilirubin 0.1, AST 34, ALT 15, Alkaline Phosphatase 55, Total Protein 5.6 L, Albumin 2.9 L, Triglycerides 172 H, Cholesterol 113 L, LDL Cholesterol Direct 65.08 L, VLDL Cholesterol 34, HDL Cholesterol 30 L, Cholesterol/HDL Ratio 3.8 H 07/15/23 06:05: POC Glucose 119 H I & O for Labs for Last 24 Hours: Intake & Output 07/12/23 07/13/23 07/14/23 07/15/23 23:59 23:59 23:59 23:59 Intake Total 2218 / 2318 1070 / 1070 540 / 540 600 / 600 Output Total 1100 / 1100 300 / 300 0 / 0 Balance 1118 / 1218 770 / 770 540 / 540 600 / 600 Weight 147 lb 11.355 oz 148 lb 9.465 oz 150 lb 5.684 oz 148 lb 9.465 oz Microbiology Reports for the Last 24 Hours: Microbiology 07/09/23 21:25 Blood Blood Culture - Preliminary 07/09/23 21:25 Blood Blood Culture - Preliminary Assessment and Plan *Assessment and plan (1) Multiple pulmonary nodules: Status: Acute Category: Medical Code(s): R91.8 - Other nonspecific abnormal finding of lung field (2) Pneumonia: Status: Acute Qualifiers: Pneumonia type: due to unspecified organism Laterality: unspecified laterality Lung location: unspecified part of lung Qualified Code(s): J18.9 - Pneumonia, unspecified organism Category: Medical Code(s): J18.9 - Pneumonia, unspecified organism Plan Ms. Greenfield is a 58-year-old with reported history of diabetes mellitus, dyspnea presented today with worsening altered mentation and dizziness admitted and being managed for DKA and pulmonary was called for further evaluation and management. Significant leukocytosis upon admission improving. VBG and ABG upon admission showed severe metabolic acidosis with a pH of 6.90 with a pCO2 of 13.4 with a bicarb of [address] chest upon admission bilateral round nodules some of them are partially calcified. No prior imaging available to review. Also noted to have groundglass opacities. COVID-19 and flu PCR panel negative. Patient admits prior history of histoplasmosis around 1999. Had a bronchoscopy at that point of time resulted positive. No treatment needed at that time. Her nodules on the CT scan are likely from prior granulomatous inflammation. Never smoker. No significant prior respiratory complaints. However no recent prior imaging available for comparison. Noncompliant with age-appropriate screening. Interval update: No acute respiratory events overnight. Continued to remain on room air. Plan: -For the noted pulmonary nodules will follow the patient in pulmonary clinic in 12 months with a repeat CT chest without contrast. Will schedule this prior to patient's discharge. # Thank you for involving pulmonary in this patient care. Will continue to follow.
[2023-07-15] MEDS: humaLOG 100 UNITS/ML 3ML VIAL (SSI) SQ ×2 (12:15→20:55)
[2023-07-15] MEDS: SODIUM BICARBONATE 650MG TABLET 1300 MG PO ×2 (12:17→20:49)
--- NOTE | 2023-07-15 12:51 | P.PN_ITS ---
Subjective Subjective Date: 07/15/23 Time: 09:30 Principal diagnosis: DKA, NSTEMI, HFrEF Interval history: This is a 58-year-old white female presented to the emergency department with an altered mental status. She was found to have a DKA as well as an elevated troponin consistent with a non-STEMI and new onset cardiomyopathy with an ejection fraction of 20%. Once the patient recovered from her DKA she did undergo a left cardiac catheterization yesterday. The patient had multivessel stenting with 1 stent placed to her left main and 3 stents placed to her LAD first and second diagonal arteries. She also had 1 stent placed to her right coronary artery. She had a total of 5 stents placed and 8 balloon angioplasties. She tolerated the procedure well. She will be on Effient and aspirin for dual antiplatelet therapy. This morning she denies any chest pain or pressure. She denies any shortness of breath or edema. She denies any fever, chills, nausea, vomiting, diarrhea, PND orthopnea. We are currently awaiting her LifeVest prior to discharge. Exam Data for Last 24 hours Vital signs and Labs for Last 24 Hours: Temp Pulse Resp BP Pulse Ox O2 Del Method O2 Flow Rate 97.6 F 100 H 19 95/53 L 100 Room Air 15 07/15/23 08:00 07/15/23 12:00 07/15/23 12:00 07/15/23 12:00 07/15/23 12:00 07/15/23 12:00 07/15/23 04:00 Laboratory Results - last 24 hr 07/14/23 15:08: Activated Clotting Time 397 H* 07/14/23 15:43: Activated Clotting Time > 400 H* 07/14/23 16:48: POC Glucose 89 07/14/23 20:28: POC Glucose 121 H 07/15/23 06:01: WBC 11.1 H D, RBC 4.26, Hgb 13.3, Hct 40.0, MCV 93.8, MCH 31.1, MCHC 33.2, RDW 13.4, Plt Count 198, MPV 8.2, Neut % (Auto) 74.7, Lymph % (Auto) 19.9, [place] % (Auto) 4.4, Eos % (Auto) 0.6, Baso % (Auto) 0.5, Neut # (Auto) 8.3 H, Lymph # (Auto) 2.2, [place] # (Auto) 0.5, Eos # (Auto) 0.1, Baso # (Auto) 0.1, Sodium 136, Potassium 3.8 D, Chloride 110 H, Carbon Dioxide 10 L D, Anion Gap 19.8 H, BUN 7 D, Creatinine 0.60 D, Estimated Creat Clear 162, Estimated GFR 103, Est GFR ( Amer) 125 D, Glucose 126 H, Calcium 8.3 L, Total Bilirubin 0.5, Direct Bilirubin 0.4, Conjugated Bilirubin 0.0, Indirect Bilirubin 0.1, Unconjugated Bilirubin 0.1, AST 34, ALT 15, Alkaline Phosphatase 55, Total Protein 5.6 L, Albumin 2.9 L, Triglycerides 172 H, Cholesterol 113 L, LDL Cholesterol Direct 65.08 L, VLDL Cholesterol 34, HDL Cholesterol 30 L, Cholesterol/HDL Ratio 3.8 H 07/15/23 06:05: POC Glucose 119 H I & O for Last 24 hours: Intake & Output 07/12/23 07/13/23 07/14/23 07/15/23 23:59 23:59 23:59 23:59 Intake Total 2218 / 2318 1070 / 1070 540 / 540 600 / 600 Output Total 1100 / 1100 300 / 300 0 / 0 Balance 1118 / 1218 770 / 770 540 / 540 600 / 600 Weight 147 lb 11.355 oz 148 lb 9.465 oz 150 lb 5.684 oz 148 lb 9.465 oz Microbiology Reports for the Last 24 Hours: Microbiology 07/09/23 21:25 Blood Blood Culture - Preliminary 07/09/23 21:25 Blood Blood Culture - Preliminary Constitutional Constitutional: no acute distress and average body habitus *Routine HEENT Exam Head: Present normocephalic and atraumatic ENT: Present mucous membranes moist *Routine Neck Exam Neck: Present supple, full ROM and normal carotid upstroke; Absent JVD, carotid bruit or lymphadenopathy *Routine Respiratory Exam Respiratory: Present CTA bilaterally, normal respiratory effort, able to speak in complete sentences and symmetric chest movement *Routine Cardiovascular Exam Cardiovascular: Present RRR, Normal S1 and Normal S2; Absent murmur or gallop *Routine Abdominal Exam Abdominal: Present soft and normoactive bowel sounds; Absent tenderness, distended or organomegaly *Routine Extremities Exam Extremities: Present full ROM, pulses intact and normal capillary refill; Absent cyanosis, clubbing or edema *Routine Skin Exam Skin: Present intact and warm; Absent erythema *Routine Neurological Exam Neurological: Present alert, oriented X3 and CN II-XII intact; Absent sensory deficit or motor deficit Routine Psychiatric Exam Psychiatric: Present normal affect Progress Note: A&P Assessment and plan (1) HFrEF (heart failure with reduced ejection fraction): Status: Acute (2) NSTEMI (non-ST elevated myocardial infarction): Status: Acute (3) LV dysfunction: Status: Acute (4) Cardiomyopathy: Status: Acute (5) Coronary artery disease: Status: Acute (6) DKA (diabetic ketoacidosis): Status: Acute (7) History of hypertension: Status: Acute (8) Diabetes mellitus: Status: Acute (9) Hyperlipidemia: Status: Acute (10) Multiple pulmonary nodules: Status: Acute (11) Pneumonia: Status: Acute Assessment and Plan Assessment and Plan for All Diagnoses:: Plan: 1. 1. This is a 58-year-old white female who was found to be in DKA and had altered mental status on admission. Her DKA has improved. Will defer management this to the hospitalist. 2. The patient also had an elevated troponin consistent with a non-STEMI. Patient underwent left cardiac catheterization with multivessel stenting to the left main, LAD, first and second diagonal arteries and right coronary artery. She had a total of 5 stents placed and 8 balloon angioplasties. 3. The patient will remain on Effient and aspirin for dual antiplatelet therapy. 4. The patient has severe LV dysfunction. She is increased risk for sudden cardiac due to his severe LV dysfunction. The patient will need a LifeVest in place prior to discharge home. The LifeVest is still a pending approval at this time. The patient will need to remain hospitalized until her LifeVest is in place due to her increased risk of sudden cardiac . 6. The patient is on Toprol, Entresto, Jardiance and spironolactone for HFrEF. 7. Her blood pressure is well-controlled. 8. Her LDL goal is less than 55. Her LDL is 65. She is on a statin. 9. The patient is diabetic. She will need aggressive control of her diabetes. Will defer this to the hospitalist. 10. Further recommendations will be made pending the patient's response to treatment. Thank you for the opportunity to participate in the care of this patient. All recommendations and orders are per Dr. Olea.
--- NOTE | 2023-07-15 16:17 | PC.NURSE ---
Patient alert and oriented. VSS. Up with SBA. Denies pain. Right radial cath site WDL. Currrently awaiting approval of LifeVest for discharge home
[2023-07-15] MEDS: ATORVASTATIN 40MG TABLET 40 MG PO (20:49)
[2023-07-15] MEDS: PANTOPRAZOLE 40MG TABLET 40 MG PO (20:49)
--- NOTE | 2023-07-15 22:04 | P.PN_ITS ---
Subjective *Date: 07/15/23 *Time: 22:04 Interval history: Patient has no chest pain today. Stable on room air. No nausea or vomiting. Awaiting LifeVest and approval from insurance. Blood sugar controlled. No nausea or vomiting. Medical Exam Vital signs and Labs for Last 24 Hours: Vital Signs Temp Pulse Pulse Resp BP Pulse Ox O2 Del Method 07/15/23 18:50 Room Air 07/15/23 18:43 98.3 F 100 H 19 93/53 L 100 Room Air 07/15/23 16:00 97.8 F 104 H 20 104/64 L 99 Room Air 07/15/23 17:05 Room Air 07/15/23 16:00 100 H 07/15/23 15:00 Room Air 07/15/23 13:00 Room Air 07/15/23 12:00 100 H 07/15/23 12:00 100 H 19 95/53 L 100 Room Air 07/15/23 11:19 Room Air 07/15/23 09:15 Room Air 07/15/23 08:04 100 H 07/15/23 08:00 97.6 F 100 H 17 114/60 97 Room Air 07/15/23 08:00 Room Air 07/15/23 06:41 Room Air 07/15/23 05:00 Room Air 07/15/23 04:00 98.1 F 100 H 33 H 100/60 L 91 L Non-Rebreather 07/15/23 04:00 96 H 07/15/23 03:00 Room Air 07/15/23 00:00 98.4 F 105 H 18 102/66 L 97 Room Air 07/14/23 22:35 98.1 F 110 H 18 117/66 97 Room Air 07/15/23 01:00 Room Air 07/14/23 23:00 Room Air O2 Flow Rate 07/15/23 18:50 07/15/23 18:43 07/15/23 16:00 07/15/23 17:05 07/15/23 16:00 07/15/23 15:00 07/15/23 13:00 07/15/23 12:00 07/15/23 12:00 07/15/23 11:19 07/15/23 09:15 07/15/23 08:04 07/15/23 08:00 07/15/23 08:00 07/15/23 06:41 07/15/23 05:00 07/15/23 04:00 15 07/15/23 04:00 07/15/23 03:00 07/15/23 00:00 07/14/23 22:35 07/15/23 01:00 07/14/23 23:00 Intake and Output 07/15/23 07/15/23 07/15/23 07:59 15:59 23:59 Intake Total 1200 / 1800 600 / 1800 Output Total 0 / 0 0 / 0 Balance 1200 / 1800 600 / 1800 Intake: Intake, Oral Amount 1200 / 1800 600 / 1800 Output: Output, Urine Amount 0 / 0 0 / 0 Other: Number of Unmeasured Voids 1 1 Weight 67.4 kg Patient Weight 07/15/23 23:59 Weight 67.4 kg Laboratory Results - last 24 hr 07/14/23 20:28: POC Glucose 121 H 07/15/23 06:01: WBC 11.1 H D, RBC 4.26, Hgb 13.3, Hct 40.0, MCV 93.8, MCH 31.1, MCHC 33.2, RDW 13.4, Plt Count 198, MPV 8.2, Neut % (Auto) 74.7, Lymph % (Auto) 19.9, [place] % (Auto) 4.4, Eos % (Auto) 0.6, Baso % (Auto) 0.5, Neut # (Auto) 8.3 H, Lymph # (Auto) 2.2, [place] # (Auto) 0.5, Eos # (Auto) 0.1, Baso # (Auto) 0.1, Sodium 136, Potassium 3.8 D, Chloride 110 H, Carbon Dioxide 10 L D, Anion Gap 19.8 H, BUN 7 D, Creatinine 0.60 D, Estimated Creat Clear 162, Estimated GFR 103, Est GFR ( Amer) 125 D, Glucose 126 H, Calcium 8.3 L, Total Bilirubin 0.5, Direct Bilirubin 0.4, Conjugated Bilirubin 0.0, Indirect Bilirubin 0.1, Unconjugated Bilirubin 0.1, AST 34, ALT 15, Alkaline Phosphatase 55, Total Protein 5.6 L, Albumin 2.9 L, Triglycerides 172 H, Cholesterol 113 L, LDL Cholesterol Direct 65.08 L, VLDL Cholesterol 34, HDL Cholesterol 30 L, Cholesterol/HDL Ratio 3.8 H 07/15/23 06:05: POC Glucose 119 H I & O for Labs for Last 24 Hours: Intake & Output 07/12/23 07/13/23 07/14/23 07/15/23 23:59 23:59 23:59 23:59 Intake Total 2218 / 2318 1070 / 1070 540 / 540 1800 / 1800 Output Total 1100 / 1100 300 / 300 0 / 0 0 / 0 Balance 1118 / 1218 770 / 770 540 / 540 1800 / 1800 Weight 67 kg 67.4 kg 68.2 kg 67.4 kg Microbiology Reports for the Last 24 Hours: Microbiology 07/09/23 21:25 Blood Blood Culture - Preliminary Constitutional: Present no acute distress Respiratory: Present normal respiratory effort Cardiac: Present Reg Rate and Rhythm GI: Present normal bowel sounds; Absent tenderness Extremities: Present normal inspection and full ROM Skin: Present intact; Absent erythema Neuro: Present Grossly Intact, alert, awake, oriented x 3 and moves all extremities Assessment and Plan *Assessment and plan (1) HFrEF (heart failure with reduced ejection fraction): Status: Acute Category: Medical Code(s): I50.20 - Unspecified systolic (congestive) heart failure (2) NSTEMI (non-ST elevated myocardial infarction): Status: Acute Category: Medical Code(s): I21.4 - Non-ST elevation (NSTEMI) myocardial infarction (3) Coronary artery disease: Status: Acute Category: Medical Code(s): I25.10 - Atherosclerotic heart disease of [place] coronary artery without angina pectoris (4) Diabetes mellitus: Status: Acute Category: Medical Code(s): E11.9 - Type 2 diabetes mellitus without complications Plan 58-year-old female PMHx of NIDDM, HLD, presented to the emergency department initially for altered mental status weakness and dizziness. History obtained form ED and patient's . She presented in DKA. Has done well during admission. Has hemodynamically stabilized. Taken for left heart cath yesterday with placement of 5 stents. Medically stable but continues to require inpatient management while awaiting LifeVest placement. Problems addressed as follows: Diabetes, DKA resolved - Glucose better, 126 this morning. Continue low-dose sliding scale, metformin 500 mg twice daily, Jardiance 20 mg daily. Only necessitating 4 units a day over the past 2 to 3 days of sliding scale insulin. Will hold on initiating long-acting insulin. Will need repeat A1c in 3 months. A1c 10.7 on presentation. -Repeat CBC, CMP, magnesium ordered for the morning. CAD, status post stenting 07/14/2023 NSTEMI Heart failure with reduced ejection fraction -Significant coronary artery disease found on left heart cath. Multivessel stenting performed. 5 stents total -Continue Effient and aspirin daily for dual antiplatelet therapy. -Echo with severe LV dysfunction. Will necessitate LifeVest prior to discharge home. Pending insurance approval. -Continue Toprol, Entresto, Jardiance, spironolactone. Cardiology consulted and assisting with care. Discussed case, recommend meds as stated previously. - Her LDL goal is less than 55. Her LDL is 65. She is on a statin. SCD for DVT prophylaxis. Protonix for GI bleed protection Full code Diabetic diet
[2023-07-15] MEDS: ONDANSETRON 4MG/2ML VIAL 4 MG IV (22:24)
[2023-07-16] VITALS (8 sets, daily range): BP systolic 78–117; BP diastolic 44–65; PULSE 103–130; RESP 16–18; TEMP 36.5–37.2; O2SAT 96–99; BMI 24.7
[2023-07-16 02:05] LABS: POC Glucose,Bedside 194 (70-110)
[2023-07-16 05:33] LABS: POC Glucose,Bedside 206 (70-110)
[2023-07-16 06:27] LABS: Basophils % 0.3 % (0.1-2.0); Eosinophils # 0.1 K/mm3 (0.0-0.4); Eosinophils % 0.4 % (0.1-12.0); Hematocrit 42.5 % (37.0-47.0); Hemoglobin 14.2 g/dL (12.2-16.2); Lymphocytes % 6.7 % (10-50); Mean Corpuscular HGB Conc 33.3 g/dL (31.8-35.4); Mean Corpuscular Hemoglobin 31.6 pg (27.0-31.2); Mean Corpuscular Volume 94.8 fl (81-99); Mean Platelet Volume 8.2 fl (7.4-10.4); Monocytes # 0.6 K/mm3 (0.1-1.0); Monocytes % 3.9 % (1.7-9.3); Neutrophils % 88.6 % (37.0-80.0); Platelet Count 233 K/mm3 (142-424); Red Blood Count 4.48 M/mm3 (4.20-5.40); Red Cell Distribution Width 13.4 % (11.5-17.5); White Blood Count 14.6 K/mm3 (4.8-10.8)
[2023-07-16 06:31] LABS: Chloride 110 mmol/L (98-107); Potassium 4.1 mmoL/L (3.5-5.1); Sodium 136 mmol/L (136-145)
[2023-07-16 06:34] LABS: Anion Gap 22.1 mEq/L (5-15); Blood Urea Nitrogen 10 mg/dl (7-17); Calcium 9.3 mg/dl (8.4-10.2); Creatinine Clearance Estimated 92 mL/min (50-200); Estimated Glomerular Filt Rate 86 ml/min (>60); GFR (African American) 104 ML/MIN (>60); Glucose 183 mg/dl (74-100)
[2023-07-16 06:41] LABS: MANUAL DIFFERENTIAL MANUAL DIFFERENTIAL (MANUAL DIFF)
[2023-07-16] MEDS: METFORMIN 500MG TABLET 500 MG PO (06:58)
[2023-07-16] MEDS: humaLOG 100 UNITS/ML 3ML VIAL (SSI) SQ ×4 (06:58→22:15)
[2023-07-16 07:21] LABS: Carbon Dioxide 8 mmol/L (22.0-30.0)
[2023-07-16] MEDS: INSULIN GLARGINE 100 UNITS/ML 3ML FLEXPEN 5 UNIT SQ ×2 (07:51→21:50)
[2023-07-16 08:05] LABS: Lymphocytes % 9 % (10-50); Monocytes % 10 % (2-9); Neutrophils % 67 % (42-76); Total Cells Counted 100
[2023-07-16 08:07] LABS: RBC Morphology Normal
[2023-07-16 08:08] LABS: Platelet Estimate Normal
--- NOTE | 2023-07-16 08:28 | ECG_ITS ---
APPROVED REPORT Exam: Resting ECG HR:115 bpm ECG Measurements Heart Rate 115 AXES CO 123 P 44 QRSd 102 QRS -19 QT 364 T 244 QTc [address] DEVIATION AND MODERATE T-WAVE ABNORMALITY, CONSIDER ANTEROLATERAL ISCHEMIA [-0.1+ mV T-WAVE IN V3-V6] ST DEVIATION AND MODERATE T-WAVE ABNORMALITY, CONSIDER INFERIOR ISCHEMIA [-0.1+ mV T-WAVE IN II/aVF] ABNORMAL ECG UNCONFIRMED REPORT Electronically signed by : Danyel Wolf MD 07/16/2023 21:45:57
[2023-07-16] MEDS: LACTATED RINGERS 1000ML 1,000 ML 500 ML IV (08:35)
--- NOTE | 2023-07-16 09:10 | PC.NURSE ---
Dr. Mejía at bedside. Instructions received to hold Jardiance, metoprolol and Entresto until cardiology rounds this morning. Will recheck BP at blood sugar at 1000
[2023-07-16] MEDS: PRASUGREL 10MG TAB 10 MG PO (09:26)
[2023-07-16] MEDS: SPIRONOLACTONE 25MG TABLET 25 MG PO (09:26)
[2023-07-16] MEDS: DOCUSATE SODIUM 100 MG CAPSULE PO ×2 (09:26→21:50)
[2023-07-16] MEDS: SODIUM BICARBONATE 650MG TABLET 1300 MG PO ×3 (09:26→21:50)
[2023-07-16] MEDS: GABAPENTIN 400MG CAPSULE 400 MG PO ×2 (09:26→21:50)
[2023-07-16] MEDS: ASPIRIN EC 81MG TABLET 81 MG PO (09:26)
[2023-07-16] MEDS: FENOFIBRATE 134MG CAPSULE 134 MG PO (09:30)
--- NOTE | 2023-07-16 09:32 | PC.NURSE ---
Desiree Garcia APRN at bedside. Notified of patient's hypotension and increased anion gap. No new orders received. Will continue to hold Entresto and Metoprolol until Dr. Olea rounds
[2023-07-16] MEDS: humaLOG 100 UNITS/ML 3ML VIAL (SSI) 4 UNIT SQ (11:01)
--- NOTE | 2023-07-16 11:55 | PC.NURSE ---
Order received from cardiology to hold Metoprolol and Entresto today and administer again starting 07/17/23
[2023-07-16 12:50] LABS: Anion Gap 18.7 mEq/L (5-15); Blood Urea Nitrogen 10 mg/dl (7-17); Calcium 9.6 mg/dl (8.4-10.2); Carbon Dioxide 14 mmol/L (22.0-30.0); Chloride 108 mmol/L (98-107); Creatinine Clearance Estimated 107 mL/min (50-200); Estimated Glomerular Filt Rate 103 ml/min (>60); GFR (African American) 125 ML/MIN (>60); Glucose 167 mg/dl (74-100); Potassium 3.7 mmoL/L (3.5-5.1); Sodium 137 mmol/L (136-145)
[2023-07-16 12:51] LABS: Microscopic, Urine URINE MICROSCOPIC (MICROSCOPIC)
[2023-07-16 13:00] LABS: Lactic Acid 1.1 mmol/L (0.7-2.1)
[2023-07-16 13:01] LABS: Appearance,Urine CLEAR (Clear); Blood, Urine 1+ (Negative); Color,Urine YELLOW (Yellow); Glucose,Urine (UA) 3+ (Negative); Ketones,Urine 3+ (Negative); Leukocyte Esterase,Urine Negative (Negative); Nitrate,Urine Negative (Negative); PH,Urine 5.5 (5.0-8.5); Protein,Urine Negative (Negative); Specific Gravity, Urine 1.025 (1.005-1.030); Urobilinogen,Urine 0.2 EU/dl (0.2)
[2023-07-16 13:05] LABS: Bilirubin,Urine Negative (Negative)
--- NOTE | 2023-07-16 13:34 | EXP.CARD.PN ---
Subjective Subjective Date: 07/16/23 Time: 09:30 Principal diagnosis: DKA, NSTEMI, HFrEF Interval history: This is a 58-year-old female who was admitted to the hospital with DKA. She was also found to have a non-STEMI and new onset cardiomyopathy with an ejection fraction of 20%. The patient did undergo a left cardiac catheterization and had 5 stents placed and 8 balloon angioplasties to multiple coronary arteries. She tolerated the procedure well. She is on Effient and aspirin for dual antiplatelet therapy. This morning her bicarb has worsened and her anion gap has worsened as well concerning for the patient becoming more acidotic. She currently denies any chest pain or pressure. She denies any shortness of breath or edema. She denies any fever, chills, nausea, vomiting, diarrhea, PND or orthopnea. Exam Data for Last 24 hours Vital signs and Labs for Last 24 Hours: Temp Pulse Resp BP Pulse Ox O2 Del Method O2 Flow Rate 98.5 F 130 H 18 97/54 L 99 Room Air 15 07/16/23 11:48 07/16/23 12:00 07/16/23 11:48 07/16/23 11:48 07/16/23 11:48 07/16/23 13:03 07/15/23 04:00 Laboratory Results - last 24 hr 07/15/23 20:40: POC Glucose 194 H 07/16/23 05:26: POC Glucose 206 H 07/16/23 06:15: WBC 14.6 H D, RBC 4.48, Hgb 14.2, Hct 42.5, MCV 94.8, MCH 31.6 H, MCHC 33.3, RDW 13.4, Plt Count 233, MPV 8.2, Neut % (Auto) 88.6 H, Lymph % (Auto) 6.7 L, [place] % (Auto) 3.9, Eos % (Auto) 0.4, Baso % (Auto) 0.3, Neut # (Auto) 13.0 H, Lymph # (Auto) 1.0, [place] # (Auto) 0.6, Eos # (Auto) 0.1, Baso # (Auto) 0.0, Total Counted 100, Neutrophils % (Manual) 67, Band Neutrophils % 14.0 H, Lymphocytes % (Manual) 9 L, Monocytes % (Manual) 10 H, Platelet Estimate Normal, RBC Morphology Normal, Sodium 136, Potassium 4.1, Chloride 110 H, Carbon Dioxide 8 L* D, Anion Gap 22.1 H, BUN 10 D, Creatinine 0.70, Estimated Creat Clear 92, Estimated GFR 86, Est GFR ( Amer) 104, Glucose 183 H, Calcium 9.3 07/16/23 12:05: Urine Color Yellow, Urine Appearance Clear, Urine pH 5.5, Ur Specific [place] 1.025, Urine Protein Negative, Urine Glucose (UA) 3+, Urine Ketones 3+, Urine Blood 1+, Urine Nitrate Negative, Urine Bilirubin Negative, Urine Urobilinogen 0.2, Ur Leukocyte Esterase Negative 07/16/23 12:25: Sodium 137, Potassium 3.7, Chloride 108 H, Carbon Dioxide 14 L, Anion Gap 18.7 H, BUN 10, Creatinine 0.60, Estimated Creat Clear 107, Estimated GFR 103, Est GFR ( Amer) 125 D, Glucose 167 H, Calcium 9.6 07/16/23 12:45: Lactate 1.1 I & O for Last 24 hours: Intake & Output 07/13/23 07/14/23 07/15/23 07/16/23 23:59 23:59 23:59 23:59 Intake Total 1070 / 1070 540 / 540 1800 / 1800 1205 / 1205 Output Total 300 / 300 0 / 0 0 / 0 500 / 500 Balance 770 / 770 540 / 540 1800 / 1800 705 / 705 Weight 148 lb 9.465 oz 150 lb 5.684 oz 148 lb 9.465 oz 144 lb 11.2 oz Microbiology Reports for the Last 24 Hours: Microbiology 07/09/23 21:25 Blood Blood Culture - Preliminary Constitutional Constitutional: no acute distress and average body habitus *Routine HEENT Exam Head: Present normocephalic and atraumatic ENT: Present mucous membranes moist *Routine Neck Exam Neck: Present supple, full ROM and normal carotid upstroke; Absent JVD, carotid bruit or lymphadenopathy *Routine Respiratory Exam Respiratory: Present CTA bilaterally, normal respiratory effort, able to speak in complete sentences and symmetric chest movement *Routine Cardiovascular Exam Cardiovascular: Present RRR, Normal S1 and Normal S2; Absent murmur or gallop *Routine Abdominal Exam Abdominal: Present soft and normoactive bowel sounds; Absent tenderness, distended or organomegaly *Routine Extremities Exam Extremities: Present full ROM, pulses intact and normal capillary refill; Absent cyanosis, clubbing or edema *Routine Skin Exam Skin: Present intact and warm; Absent erythema *Routine Neurological Exam Neurological: Present alert, oriented X3 and CN II-XII intact; Absent sensory deficit or motor deficit Routine Psychiatric Exam Psychiatric: Present normal affect Progress Note: A&P Assessment and plan (1) HFrEF (heart failure with reduced ejection fraction): Status: Acute (2) NSTEMI (non-ST elevated myocardial infarction): Status: Acute (3) Coronary artery disease: Status: Acute (4) History of hypertension: Status: Acute (5) LV dysfunction: Status: Acute (6) Cardiomyopathy: Status: Acute (7) Hyperlipidemia: Status: Acute (8) Diabetes mellitus: Status: Acute (9) DKA (diabetic ketoacidosis): Status: Acute Assessment and Plan Assessment and Plan for All Diagnoses:: Plan: 1. This is a 58-year-old white female who was found to be in DKA and had altered mental status on admission. Her DKA has improved and low insulin was stopped and she was restarted on Jardiance and metformin. Today her bicarb has worsened and her anion gap has also worsened. She has been restarted on insulin. Will stop her Jardiance and metformin at this time. The patient could be having normal glycemic DKA which can happen on Jardiance. Will hold Jardiance for now. 2. The patient also had an elevated troponin consistent with a non-STEMI. Patient underwent left cardiac catheterization with multivessel stenting to the left main, LAD, first and second diagonal arteries and right coronary artery. She had a total of 5 stents placed and 8 balloon angioplasties. The patient will remain on Effient and aspirin for dual antiplatelet therapy. 3. The patient has severe LV dysfunction. She is increased risk for sudden cardiac due to his severe LV dysfunction. The patient will need a LifeVest in place prior to discharge home. The patient's LifeVest was denied by her insurance but she was approved under the [employer] guidelines. She will be fitted for her LifeVest today. 4. As mentioned above we will stop her Jardiance due to her recurrence of DKA which this can cause a normoglycemic DKA in some patients. 5. Will hold her metoprolol and Entresto today due to her hypotension. We do plan to restart these medications tomorrow. 6. The patient's blood pressure was low this morning. She was given a 500 mL bolus of fluids which is reasonable with the DKA. But we do have to be mindful that she does have cardiomyopathy and severe LV function so we will have to monitor her closely to make sure she has no symptoms of fluid overload/pulmonary edema. 7. Her LDL goal is less than 55. Her LDL is 65. She is on a statin. 8. The patient is diabetic. She will need aggressive control of her diabetes. Will defer this to the hospitalist. 9. Further recommendations will be made pending the patient's response to treatment. Thank you for the opportunity to participate in the care of this patient. All recommendations and orders are per Dr. Olea.
[2023-07-16 14:22] LABS: Bacteria,Urine Trace /lpf; RBC,Urine Occasional #/hpf (0-3); WBC,Urine Occasional #/hpf (0-3); Yeast,Urine 3+ /lpf
--- NOTE | 2023-07-16 15:25 | PC.NURSE ---
Pt alert and oriented. Subcutaneous insulin administered per AUG and Jardiance held for increasing anion gap and critical CO2 with improvement of labs upon recheck. Morning BP meds held per cardiology for hypotension. On room air. Tachycardia improved. Up with one to BR for voids. Tolerating oral intake. Patient has been on phone with [employer] and [employer] throughout day trying to get LifeVest approved.
--- NOTE | 2023-07-16 16:16 | EXP.ACUTE.PN ---
Subjective *Date: 07/16/23 *Time: 16:16 Interval history: Patient has no chest pain today. Stable on room air. No nausea or vomiting. Awaiting LifeVest and approval from insurance. Blood sugar control however developing anion gap. Concern this is secondary to her Jardiance. Will hold metformin and Jardiance today. at bedside, updated of plan. Medical Exam Vital signs and Labs for Last 24 Hours: Vital Signs Temp Pulse Pulse Pulse Resp BP Pulse Ox 07/16/23 15:00 07/16/23 12:00 130 H 07/16/23 13:03 07/16/23 11:48 98.5 F 106 H 18 97/54 L 99 07/16/23 11:04 07/16/23 09:00 07/16/23 10:08 106 H 110/65 07/16/23 08:00 110 H 07/16/23 08:00 97.9 F 115 H 16 78/44 L 99 07/16/23 06:55 07/16/23 04:00 103 H 07/16/23 05:00 07/16/23 03:00 07/16/23 04:00 98.4 F 105 H 18 94/57 L 98 07/16/23 00:00 124 H 07/15/23 20:00 102 H 07/16/23 01:00 07/15/23 23:00 07/15/23 20:00 100 H 98 07/16/23 00:00 98.8 F 120 H 18 117/58 L 97 07/15/23 20:00 98.6 F 109 H 18 91/58 L 98 07/15/23 18:50 07/15/23 18:43 98.3 F 100 H 19 93/53 L 100 07/15/23 17:05 O2 Del Method 07/16/23 15:00 Room Air 07/16/23 12:00 07/16/23 13:03 Room Air 07/16/23 11:48 Room Air 07/16/23 11:04 Room Air 07/16/23 09:00 Room Air 07/16/23 10:08 07/16/23 08:00 07/16/23 08:00 Room Air 07/16/23 06:55 Room Air 07/16/23 04:00 07/16/23 05:00 Room Air 07/16/23 03:00 Room Air 07/16/23 04:00 Room Air 07/16/23 00:00 07/15/23 20:00 07/16/23 01:00 Room Air 07/15/23 23:00 Room Air 07/15/23 20:00 Room Air 07/16/23 00:00 Room Air 07/15/23 20:00 Room Air 07/15/23 18:50 Room Air 07/15/23 18:43 Room Air 07/15/23 17:05 Room Air Intake and Output 07/16/23 07/16/23 07/16/23 07:59 15:59 23:59 Intake Total 470 / 1205 735 / 1205 Output Total 500 / 500 Balance 470 / 705 235 / 705 Intake: Intake, Oral Amount 470 / 705 235 / 705 Intake, Total IV Amount 500 / 500 Lactated Ringers 1000ML 1,000 500 / 500 ml @ 75 mls/hr IV .[id number] [facility] Rx#:[id number] Output: Output, Urine Amount 500 / 500 Other: Number of Unmeasured Voids 1 Weight 65.635 kg Patient Weight 07/16/23 23:59 Weight 65.635 kg Laboratory Results - last 24 hr 07/15/23 20:40: POC Glucose 194 H 07/16/23 05:26: POC Glucose 206 H 07/16/23 06:15: WBC 14.6 H D, RBC 4.48, Hgb 14.2, Hct 42.5, MCV 94.8, MCH 31.6 H, MCHC 33.3, RDW 13.4, Plt Count 233, MPV 8.2, Neut % (Auto) 88.6 H, Lymph % (Auto) 6.7 L, [place] % (Auto) 3.9, Eos % (Auto) 0.4, Baso % (Auto) 0.3, Neut # (Auto) 13.0 H, Lymph # (Auto) 1.0, [place] # (Auto) 0.6, Eos # (Auto) 0.1, Baso # (Auto) 0.0, Total Counted 100, Neutrophils % (Manual) 67, Band Neutrophils % 14.0 H, Lymphocytes % (Manual) 9 L, Monocytes % (Manual) 10 H, Platelet Estimate Normal, RBC Morphology Normal, Sodium 136, Potassium 4.1, Chloride 110 H, Carbon Dioxide 8 L* D, Anion Gap 22.1 H, BUN 10 D, Creatinine 0.70, Estimated Creat Clear 92, Estimated GFR 86, Est GFR ( Amer) 104, Glucose 183 H, Calcium 9.3 07/16/23 12:05: Urine Color Yellow, Urine Appearance Clear, Urine pH 5.5, Ur Specific [place] 1.025, Urine Protein Negative, Urine Glucose (UA) 3+, Urine Ketones 3+, Urine Blood 1+, Urine Nitrate Negative, Urine Bilirubin Negative, Urine Urobilinogen 0.2, Ur Leukocyte Esterase Negative, Urine RBC Occasional, Urine WBC Occasional, Ur Squamous Epith Cells 3-5, Urine Bacteria Trace, Urine Yeast 3+ 07/16/23 12:25: Sodium 137, Potassium 3.7, Chloride 108 H, Carbon Dioxide 14 L, Anion Gap 18.7 H, BUN 10, Creatinine 0.60, Estimated Creat Clear 107, Estimated GFR 103, Est GFR ( Amer) 125 D, Glucose 167 H, Calcium 9.6 07/16/23 12:45: Lactate 1.1 I & O for Labs for Last 24 Hours: Intake & Output 07/13/23 07/14/23 07/15/23 07/16/23 23:59 23:59 23:59 23:59 Intake Total 1070 / 1070 540 / 540 1800 / 1800 1205 / 1205 Output Total 300 / 300 0 / 0 0 / 0 500 / 500 Balance 770 / 770 540 / 540 1800 / 1800 705 / 705 Weight 67.4 kg 68.2 kg 67.4 kg 65.635 kg Microbiology Reports for the Last 24 Hours: Microbiology 07/09/23 21:25 Blood Blood Culture - Preliminary Constitutional: Present no acute distress, average body habitus and chronically ill appearing Head: Present atraumatic and normocephalic Neck: Present normal inspection Respiratory: Present normal respiratory effort; Absent rhonchi, wheezes or crackles Cardiac: Present Reg Rate and Rhythm GI: Present normal bowel sounds; Absent tenderness Extremities: Present normal inspection and full ROM Skin: Present intact; Absent erythema Neuro: Present Grossly Intact, alert, awake, oriented x 3 and moves all extremities Assessment and Plan *Assessment and plan (1) DKA (diabetic ketoacidosis): Status: Acute Qualifiers: Diabetes mellitus type: type 2 Diabetes mellitus complication detail: without coma Qualified Code(s): E11.10 - Type 2 diabetes mellitus with ketoacidosis without coma Category: Medical Code(s): E11.10 - Type 2 diabetes mellitus with ketoacidosis without coma (2) HFrEF (heart failure with reduced ejection fraction): Status: Acute Category: Medical Code(s): I50.20 - Unspecified systolic (congestive) heart failure (3) NSTEMI (non-ST elevated myocardial infarction): Status: Acute Category: Medical Code(s): I21.4 - Non-ST elevation (NSTEMI) myocardial infarction (4) Coronary artery disease: Status: Acute Category: Medical Code(s): I25.10 - Atherosclerotic heart disease of [place] coronary artery without angina pectoris (5) Diabetes mellitus: Status: Acute Category: Medical Code(s): E11.9 - Type 2 diabetes mellitus without complications Plan 58-year-old female PMHx of NIDDM, HLD, presented to the emergency department initially for altered mental status weakness and dizziness. History obtained form ED and patient's . She presented in DKA. Has done well during admission. Has hemodynamically stabilized. Taken for left heart cath 07/14 with placement of 5 stents. Given increasing gap, will monitor for 24 more hours with adjustment in diabetes regimen while awaiting nsurance approval for LifeVest. If improved in the next 24 hours, anticipate discharge tomorrow. Problems addressed as follows: Diabetes, DKA -Glucose 180 this morning on morning labs. Has an elevated anion gap of 22 however and a bicarb of 8. High suspicion for normoglycemic DKA in the setting of SGLT2 (Jardiance). Will discontinue metformin and Jardiance today. Increase insulin regimen. -Initiate glargine 5 units this morning to help promote closure of anion gap. Repeat BMP at noon to monitor for improvement. Additional 5 units of short acting insulin this morning given elevated blood sugars. -Will continue glargine 5 units tonight. If tolerates well will discharge on 10 units nightly of glargine and hold Jardiance. Reevaluate initiating metformin tomorrow. -Repeat CBC, CMP, magnesium ordered for the morning. CAD, status post stenting 07/14/2023 NSTEMI Heart failure with reduced ejection fraction -Significant coronary artery disease found on left heart cath. Multivessel stenting performed. 5 stents total -Continue Effient and aspirin daily for dual antiplatelet therapy. -Echo with severe LV dysfunction, EF 20%. Awaiting insurance approval for LifeVest -Continue Toprol, Entresto, Jardiance, spironolactone. Cardiology consulted and assisting with care. Discussed case, recommend meds as stated previously. - Her LDL goal is less than 55. Her LDL is 65. She is on a statin. SCD for DVT prophylaxis. Protonix for GI bleed protection Full code Diabetic diet
[2023-07-16] MEDS: PANTOPRAZOLE 40MG TABLET 40 MG PO (21:50)
[2023-07-16] MEDS: ATORVASTATIN 40MG TABLET 40 MG PO (21:50)
--- NOTE | 2023-07-16 22:04 | DIET.NUTRFU ---
Pt diet has been advanced to 1800 diabetes diet with additional cardiac restrictions. Po intake 58% average at last three meals. Glucose 183, 167. Will continue to monitor and answer any questions that may arise.
[2023-07-17] VITALS: BP 138/86; PULSE 128; PULSE 130; RESP 18; TEMP 37.2; O2SAT 98
[2023-07-17 04:00] VITALS: BP 101/61; PULSE 115; RESP 18; TEMP 36.8; O2SAT 98; BMI 25.4
[2023-07-17 07:17] LABS: Basophils % 0.2 % (0.1-2.0); Chloride 110 mmol/L (98-107); Eosinophils # 0.1 K/mm3 (0.0-0.4); Eosinophils % 1.3 % (0.1-12.0); Hematocrit 37.7 % (37.0-47.0); Hemoglobin 12.7 g/dL (12.2-16.2); Lymphocytes # 0.7 K/mm3 (0.7-4.5); Lymphocytes % 10.9 % (10-50); Mean Corpuscular HGB Conc 33.6 g/dL (31.8-35.4); Mean Corpuscular Hemoglobin 30.8 pg (27.0-31.2); Mean Corpuscular Volume 91.7 fl (81-99); Mean Platelet Volume 7.4 fl (7.4-10.4); Monocytes # 0.4 K/mm3 (0.1-1.0); Monocytes % 6.3 % (1.7-9.3); Neutrophils # 5.4 K/mm3 (1.8-7.8); Neutrophils % 81.3 % (37.0-80.0); Platelet Count 217 K/mm3 (142-424); Potassium 3.3 mmoL/L (3.5-5.1); Red Blood Count 4.11 M/mm3 (4.20-5.40); Red Cell Distribution Width 13.8 % (11.5-17.5); Sodium 136 mmol/L (136-145); White Blood Count 6.7 K/mm3 (4.8-10.8)
[2023-07-17 07:19] LABS: Blood Urea Nitrogen 7 mg/dl (7-17); Creatinine Clearance Estimated 132 mL/min (50-200); Estimated Glomerular Filt Rate 127 ml/min (>60); GFR (African American) 154 ML/MIN (>60)
[2023-07-17 07:20] LABS: Alanine Aminotransferase 16 U/L (12-78); Albumin Level 2.7 g/dl (3.5-5.0); Albumin/Globulin Ratio 0.9 (1.1-1.8); Alkaline Phosphatase 72 U/L (38-126); Anion Gap 16.3 mEq/L (5-15); Aspartate Amino Transferase 25 U/L (14-36); Bilirubin,Total 0.4 mg/dl (0.2-1.3); Carbon Dioxide 13 mmol/L (22.0-30.0); Total Protein,Serum 5.7 g/dl (6.3-8.2)
[2023-07-17 07:21] LABS: Calcium 8.7 mg/dl (8.4-10.2); Glucose 162 mg/dl (74-100)
[2023-07-17 08:00] VITALS: BP 109/66; PULSE 122; PULSE 128; RESP 17; TEMP 36.7; O2SAT 94
--- NOTE | 2023-07-17 08:24 | P.DS_ITS ---
General Admission date:: 07/10/23 Discharge date: 07/17/23 HPI HPI HPI: This is a 58-year-old female PMHx of NIDDM, HLD, presented to the emergency department initially for altered mental status weakness and dizziness. History obtained form ED and patient's . Per patient's she is given a 3- day history of progressive nausea vomiting and generalized weakness. Patient did go to work yesterday but did not feel well. Patient reportedly visited the local today for her symptoms and had a comprehensive respiratory panel that was negative. She then returned home. She was found by a family member disoriented weak barely responsive but awake and maintaining her airway. She cannot walk unassisted. Admitted for treatment. Hospital Course Hospital Course Hospital Course: 58-year-old female PMHx of NIDDM, HLD, presented to the emergency department initially for altered mental status weakness and dizziness. History obtained form ED and patient's . She presented in DKA. Has done well during admission. Has hemodynamically stabilized. Taken for left heart cath 07/14 with placement of 5 stents. Given increasing gap, monitored for 24 more hours with adjustment in diabetes regimen while awaiting insurance approval for LifeVest. Insurance approval not provided but LifeVest provided via waiver program from able to discharge home with regimen adjustments for her diabetes and new medications for heart failure. Problems addressed as follows: Diabetes, DKA -Presented with severe DKA. Necessitated insulin drip to address blood sugar of anion gap. Patient was on Jardiance as an outpatient. High suspicion for normoglycemic DKA in the setting of SGLT2 (Jardiance). Will discontinue metformin and Jardiance today. Increased her insulin regimen. Initiated on basal insulin discharged on 10 units Lantus nightly. Hold Jardiance. Metformin reinitiated before discharge to promote increased insulin sensitivity. Glucometer and testing supplies prescribed prior to discharge. Will need repeat labs in the coming days to monitor stability. Follow-up closely with PCP for further management. CAD, status post stenting 07/14/2023 NSTEMI Heart failure with reduced ejection fraction -After patient stabilized from her DKA, she was taken for left heart cath. Found to have significant coronary artery disease found on left heart cath. Multivessel stenting performed. 5 stents total. Continue Effient and aspirin daily for dual antiplatelet therapy. Echo with severe LV dysfunction, EF 20%. Patient approved for LifeVest prior to discharge. Continue Toprol, Entresto, Jardiance, spironolactone. Cardiology consulted and assisted with care. Her LDL goal is less than 55. Her LDL is 65. She is on a statin. Labs showed stable kidney function, improving metabolic acidosis, glucose control, and normal anion gap prior to discharge. Spent 30 minutes in discharge counseling, documentation, chart review, and direct care with patient. Exam Data for Last 24 hours Vital signs and Labs for Last 24 Hours: Temp Pulse Resp BP Pulse Ox O2 Del Method O2 Flow Rate 98.3 F 115 H 18 101/61 L 98 Room Air 15 07/17/23 04:00 07/17/23 04:00 07/17/23 04:00 07/17/23 04:00 07/17/23 04:00 07/17/23 07:00 07/15/23 04:00 Laboratory Results - last 24 hr 07/16/23 12:05: Urine Color Yellow, Urine Appearance Clear, Urine pH 5.5, Ur Specific [place] 1.025, Urine Protein Negative, Urine Glucose (UA) 3+, Urine Ketones 3+, Urine Blood 1+, Urine Nitrate Negative, Urine Bilirubin Negative, Urine Urobilinogen 0.2, Ur Leukocyte Esterase Negative, Urine RBC Occasional, Urine WBC Occasional, Ur Squamous Epith Cells 3-5, Urine Bacteria Trace, Urine Yeast 3+ 07/16/23 12:25: Sodium 137, Potassium 3.7, Chloride 108 H, Carbon Dioxide 14 L, Anion Gap 18.7 H, BUN 10, Creatinine 0.60, Estimated Creat Clear 107, Estimated GFR 103, Est GFR ( Amer) 125 D, Glucose 167 H, Calcium 9.6 07/16/23 12:45: Lactate 1.1 07/17/23 06:23: WBC 6.7 D, RBC 4.11 L, Hgb 12.7, Hct 37.7, MCV 91.7, MCH 30.8, MCHC 33.6, RDW 13.8, Plt Count 217, MPV 7.4, Neut % (Auto) 81.3 H, Lymph % ( Auto) 10.9, [place] % (Auto) 6.3, Eos % (Auto) 1.3, Baso % (Auto) 0.2, Neut # (Auto) 5.4, Lymph # (Auto) 0.7, [place] # (Auto) 0.4, Eos # (Auto) 0.1, Baso # (Auto) 0.0, Sodium 136, Potassium 3.3 L, Chloride 110 H, Carbon Dioxide 13 L, Anion Gap 16.3 H, BUN 7 D, Creatinine 0.50 L, Estimated Creat Clear 132, Estimated GFR 127, Est GFR ( Amer) 154 D, Glucose 162 H, Calcium 8.7, Total Bilirubin 0.4, AST 25 D, ALT 16, Alkaline Phosphatase 72, Total Protein 5.7 L, Albumin 2.7 L, Globulin 3.0, Albumin/Globulin Ratio 0.9 L I & O for Last 24 hours: Intake & Output 07/14/23 07/15/23 07/16/23 07/17/23 23:59 23:59 23:59 23:59 Intake Total 540 / 540 1800 / 1800 2405 / 2765 360 / 360 Output Total 0 / 0 0 / 0 1350 / 1850 500 / 500 Balance 540 / 540 1800 / 1800 1055 / 915 -140 / -140 Weight 68.2 kg 67.4 kg 65.635 kg 67.585 kg Microbiology Reports for the Last 24 Hours: Microbiology 07/09/23 21:25 Blood Blood Culture - Final 07/09/23 21:25 Blood Blood Culture - Final Constitutional Constitutional: no acute distress, average body habitus, chronically ill appearing and cooperative *Routine HEENT Exam Head: Present normocephalic Eye: Present EOMI and PERRL ENT: Present mucous membranes moist *Routine Neck Exam Neck: Present supple; Absent lymphadenopathy *Routine Respiratory Exam Respiratory: Present CTA bilaterally; Absent rhonchi, wheezes or crackles *Routine Cardiovascular Exam Cardiovascular: Present murmur and tachycardia *Routine Abdominal Exam Abdominal: Present soft and normoactive bowel sounds; Absent tenderness *Routine Rectal Exam Patient deferred: visual exam *Routine Exam Patient deferred: external exam *Routine Extremities Exam Extremities: Absent cyanosis, clubbing or edema Comments: thin *Routine Skin Exam Skin: Present warm; Absent rash *Routine Neurological Exam Neurological: Present alert, oriented X3 and moving all extremities; Absent altered mental status Results Data Completed and Pending Labs on day of discharge: Labs from last 24 hours 07/17/23 07/16/23 07/16/23 06:23 12:45 12:25 WBC 6.7 D RBC 4.11 L Hgb 12.7 Hct 37.7 MCV 91.7 MCH 30.8 MCHC 33.6 RDW 13.8 Plt Count 217 MPV 7.4 Neut % (Auto) 81.3 H Lymph % (Auto) 10.9 [place] % (Auto) 6.3 Eos % (Auto) 1.3 Baso % (Auto) 0.2 Neut # (Auto) 5.4 Lymph # (Auto) 0.7 [place] # (Auto) 0.4 Eos # (Auto) 0.1 Baso # (Auto) 0.0 Sodium 136 137 Potassium 3.3 L 3.7 Chloride 110 H 108 H Carbon Dioxide 13 L 14 L Anion Gap 16.3 H 18.7 H BUN 7 D 10 Creatinine 0.50 L 0.60 Estimated Creat Clear 132 107 Estimated GFR 127 103 Est GFR ( Amer) 154 D 125 D Glucose 162 H 167 H Lactate 1.1 Calcium 8.7 9.6 Total Bilirubin 0.4 AST 25 D ALT 16 Alkaline Phosphatase 72 Total Protein 5.7 L Albumin 2.7 L Globulin 3.0 Albumin/Globulin Ratio 0.9 L Urine Color Urine Appearance Urine pH Ur Specific [place] Urine Protein Urine Glucose (UA) Urine Ketones Urine Blood Urine Nitrate Urine Bilirubin Urine Urobilinogen Ur Leukocyte Esterase Urine RBC Urine WBC Ur Squamous Epith Cells Urine Bacteria Urine Yeast 07/16/23 12:05 WBC RBC Hgb Hct MCV MCH MCHC RDW Plt Count MPV Neut % (Auto) Lymph % (Auto) [place] % (Auto) Eos % (Auto) Baso % (Auto) Neut # (Auto) Lymph # (Auto) [place] # (Auto) Eos # (Auto) Baso # (Auto) Sodium Potassium Chloride Carbon Dioxide Anion Gap BUN Creatinine Estimated Creat Clear Estimated GFR Est GFR ( Amer) Glucose Lactate Calcium Total Bilirubin AST ALT Alkaline Phosphatase Total Protein Albumin Globulin Albumin/Globulin Ratio Urine Color Yellow Urine Appearance Clear Urine pH 5.5 Ur Specific [place] 1.025 Urine Protein Negative Urine Glucose (UA) 3+ Urine Ketones 3+ Urine Blood 1+ Urine Nitrate Negative Urine Bilirubin Negative Urine Urobilinogen 0.2 Ur Leukocyte Esterase Negative Urine RBC Occasional Urine WBC Occasional Ur Squamous Epith Cells 3-5 Urine Bacteria Trace Urine Yeast 3+ DS: Diagnosis Discharge Diagnosis (1) DKA (diabetic ketoacidosis): Status: Inactive Code(s): E11.10 - Type 2 diabetes mellitus with ketoacidosis without coma Qualifiers: Diabetes mellitus complication detail: without coma Diabetes mellitus type: type 2 Qualified Code(s): E11.10 - Type 2 diabetes mellitus with ketoacidosis without coma (2) HFrEF (heart failure with reduced ejection fraction): Status: Acute Code(s): I50.20 - Unspecified systolic (congestive) heart failure (3) NSTEMI (non-ST elevated myocardial infarction): Status: Acute Code(s): I21.4 - Non-ST elevation (NSTEMI) myocardial infarction (4) Coronary artery disease: Status: Acute Code(s): I25.10 - Atherosclerotic heart disease of [place] coronary artery without angina pectoris (5) Diabetes mellitus: Status: Acute Code(s): E11.9 - Type 2 diabetes mellitus without complications Meds Home Medications and Allergies Home Medications Medication Instructions Recorded Confirmed Type gabapentin 400 mg capsule 400 mg PO TID 05/19/21 07/10/23 History fenofibrate nanocrystallized 145 145 mg PO DAILY 05/22/23 07/10/23 History mg tablet pravastatin 40 mg tablet 40 mg PO DAILY 05/22/23 07/10/23 History meclizine 25 mg tablet 25 mg PO Q6HP PRN diziness #30 tabs 07/09/23 07/10/23 Rx aspirin 81 mg tablet,delayed 81 mg PO DAILY 30 days #30 tabs 07/14/23 Rx release metoprolol succinate 25 mg 25 mg PO DAILY 30 days #30 tabs 07/14/23 Rx tablet,extended release 24 hr pantoprazole 40 mg tablet,delayed 40 mg PO HS 30 days #30 tabs 07/14/23 Rx release prasugrel 10 mg tablet 10 mg PO DAILY 30 days #30 tabs 07/14/23 Rx sacubitril 24 mg-valsartan 26 mg 1 tab PO BID 30 days #60 tabs 07/14/23 Rx tablet (Entresto) spironolactone 25 mg tablet 25 mg PO DAILY 30 days #30 tabs 07/14/23 Rx blood sugar diagnostic (Contour #100 ea 07/17/23 Rx Test Strips) blood-glucose meter (Contour Meter #1 ea 07/17/23 Rx kit) insulin glargine 100 unit/mL (3 10 unit (0.1 mL) SQ HS 30 days #3 07/17/23 Rx mL) subcutaneous pen (Lantus mL Solostar U-100 Insulin) insulin lispro 100 unit/mL 4 unit (0.04 mL) SQ TID 30 days 07/17/23 Rx subcutaneous pen (Humalog KwikPen #15 mL (U-100) Insulin) lancets 30 gauge #100 ea 07/17/23 Rx metformin 500 mg tablet 500 mg PO DAILY 30 days #30 tabs 07/17/23 Rx pen needle, diabetic 31 gauge x #100 ea 07/17/23 Rx 1/4 sodium bicarbonate 650 mg tablet 1,300 mg PO BID 30 days #120 tabs 07/17/23 Rx New Prescriptions to Start Prescriptions: aspirin Clarke,Leobardo blood sugar diagnostic [Contour Test Strips] Kym,Kareem blood-glucose meter [Contour Meter] Kym,Kareem insulin glargine [Lantus Solostar U-100 Insulin] Kym,Kareem insulin lispro [Humalog KwikPen Insulin] Kym,Kareem lancets Kym,Kareem metformin Kym,Kareem metoprolol succinate [facility]opraz[facility] pen needle, diabetic Kym,Kareem prasugrel Clarke,[facility] sacubitril-valsartan [Entresto] Clarke,[facility] sodium bicarbonate Kym,Kareem spironolactone [facility] Allergies Allergy/AdvReac Type Severity Reaction Status Date / Time No Known Allergies Allergy Verified 07/09/23 09:36 Discharge Plan Disposition Patient Disposition: Home, Self-Care Condition: Fair Discharge Order Discharge Orders: Discharge Order (Routine); Ordered 07/17/23 Ordered By: Kareem Mejía Follow up Plan Follow up with: Desiree Garcia APRN [Nurse Practitioner] - 07/24/23 2:30 pm Leslie Rojas MD [Referring] - 07/22/23 11:00 am Marilynn Murphy MD [Physician] - 07/29/23 1:00 pm (ct scan w/c con. scheduled for 07/14/2024 @ 3:30) Prescriptions/Medication Reconciliation: New aspirin 81 mg Tablet,Delayed Release (Dr/Ec) 81 mg PO DAILY 30 Days Qty: 30 0RF spironolactone 25 mg Tablet 25 mg PO DAILY 30 Days Qty: 30 0RF Entresto 24-26 mg Tablet 1 tab PO BID 30 Days Qty: 60 0RF pantoprazole 40 mg Tablet,Delayed Release (Dr/Ec) 40 mg PO HS 30 Days Qty: 30 0RF metoprolol succinate 25 mg Tablet Extended Release 24 Hr 25 mg PO DAILY 30 Days Qty: 30 0RF prasugrel 10 mg Tablet 10 mg PO DAILY 30 Days Qty: 30 0RF insulin glargine [Lantus Solostar U-100 Insulin] 100 unit/mL (3 mL) Insulin Pen 10 unit SQ HS 30 Days Qty: 3 0RF sodium bicarbonate 650 mg Tablet 1,300 mg PO BID 30 Days Qty: 120 0RF (DME) pen needle, diabetic 31 gauge x 1/4 needle See Rx Instructions .Route Qty: 100 0RF Rx Instructions: As directed (DME) lancets 30 gauge misc See Rx Instructions .Route Qty: 100 0RF Rx Instructions: As directed (DME) blood-glucose meter [Contour Meter] Kit See Rx Instructions .Route Qty: 1 0RF Rx Instructions: As directed (DME) Contour Test Strips Strip See Rx Instructions .Route Qty: 100 0RF Rx Instructions: As directed insulin lispro [Humalog KwikPen Insulin] 100 unit/mL insulin pen 4 unit SQ TID 30 Days Qty: 15 0RF Continued gabapentin 400 mg capsule 400 mg PO TID pravastatin 40 mg tablet 40 mg PO DAILY fenofibrate nanocrystallized 145 mg tablet 145 mg PO DAILY meclizine 25 mg tablet 25 mg PO Q6HP PRN (Reason: diziness) Qty: 30 0RF Changed metformin 500 mg tablet 500 mg PO DAILY 30 Days Qty: 30 0RF Patient Comments: TAKE 1 TABLET BY MOUTH TWICE A DAY Discontinued Jardiance 25 mg tablet 25 mg PO DAILY Other Ambulatory Orders: CT chest wo con (Routine) Timeframe: 12 Month [facility] Location: Radiology Ordered By: Marilynn Murphy Comprehensive Metabolic Panel (Routine) Timeframe: 2 Days Facility[facility] - Location: Laboratory Ordered By: Kareem Mejía Problem Reconciliation Problems Reviewed?: Yes Patient Discharge Instructions ACTIVITY: Ambulate as tolerated DIET: advance to your usual diet Stand Alone Forms: Post-Op Work/School Release Patient Instructions: DI for Heart Failure, DI for Pneumonia -- Adult, DI for Cardiac Catheterization, DI for Surgical Site Infection, DI for Diabetic Ketoacidosis, DI for Altered Mental Status Providers Primary Care Provider: Provider,Referral Admit Provider: Leobardo Mir Attending Provider: Leobardo Mir
[2023-07-17] MEDS: FENOFIBRATE 134MG CAPSULE 134 MG PO (09:18)
[2023-07-17] MEDS: PRASUGREL 10MG TAB 10 MG PO (09:19)
[2023-07-17] MEDS: ASPIRIN EC 81MG TABLET 81 MG PO (09:20)
[2023-07-17] MEDS: SPIRONOLACTONE 25MG TABLET 25 MG PO (09:20)
[2023-07-17] MEDS: SODIUM BICARBONATE 650MG TABLET 1300 MG PO ×2 (09:21→15:36)
[2023-07-17] MEDS: GABAPENTIN 400MG CAPSULE 400 MG PO ×2 (09:22→15:26)
[2023-07-17] MEDS: DOCUSATE SODIUM 100 MG CAPSULE PO (09:23)
[2023-07-17] MEDS: METOPROLOL SUCCINATE XL 25MG TABLET 25 MG PO (09:30)
[2023-07-17] MEDS: SACUBITRIL/VALSARTAN 24-26MG TABLET 1 EACH PO (09:30)
[2023-07-17] MEDS: humaLOG 100 UNITS/ML 3ML VIAL (SSI) SQ (11:31)
[2023-07-17 11:36] LABS: POC Glucose,Bedside 287 (70-110)
[2023-07-17 11:53] VITALS: BP 95/63; PULSE 98; RESP 16; TEMP 36.4; O2SAT 99
[2023-07-17 12:00] VITALS: PULSE 115
--- NOTE | 2023-07-17 13:14 | P.PN_ITS ---
Subjective Subjective Date: 07/17/23 Time: 10:00 Principal diagnosis: DKA, NSTEMI, HFrEF Interval history: This is a 58-year-old female who was admitted to the hospital with DKA. She was also found to have a non-STEMI and new onset cardiomyopathy with an ejection fraction of 20%. The patient underwent left cardiac catheterization with 5 stents placed to multiple coronary arteries and a balloon angioplasties. She tolerated the procedure well. She remains on Effient and aspirin for dual antiplatelet therapy. The patient did have worsening in her bicarb and anion gap yesterday so they were concerned that she was becoming more acidotic. She was treated with fluids and insulin and her bicarb and anion gap have improved today. This morning she denies any chest pain or pressure. She denies any shortness of breath or edema. She denies any fever, chills, nausea, vomiting, diarrhea, PND or orthopnea. Exam Data for Last 24 hours Vital signs and Labs for Last 24 Hours: Temp Pulse Resp BP Pulse Ox O2 Del Method O2 Flow Rate 97.6 F 115 H 16 95/63 L 99 Room Air 15 07/17/23 11:53 07/17/23 12:00 07/17/23 11:53 07/17/23 11:53 07/17/23 11:53 07/17/23 11:53 07/15/23 04:00 Laboratory Results - last 24 hr 07/16/23 12:05: Urine RBC Occasional, Urine WBC Occasional, Ur Squamous Epith Cells 3-5, Urine Bacteria Trace, Urine Yeast 3+ 07/17/23 06:23: WBC 6.7 D, RBC 4.11 L, Hgb 12.7, Hct 37.7, MCV 91.7, MCH 30.8, MCHC 33.6, RDW 13.8, Plt Count 217, MPV 7.4, Neut % (Auto) 81.3 H, Lymph % (Auto) 10.9, [place] % (Auto) 6.3, Eos % (Auto) 1.3, Baso % (Auto) 0.2, Neut # ( Auto) 5.4, Lymph # (Auto) 0.7, [place] # (Auto) 0.4, Eos # (Auto) 0.1, Baso # (Auto) 0.0, Sodium 136, Potassium 3.3 L, Chloride 110 H, Carbon Dioxide 13 L, Anion Gap 16.3 H, BUN 7 D, Creatinine 0.50 L, Estimated Creat Clear 132, Estimated GFR 127, Est GFR ( Amer) 154 D, Glucose 162 H, Calcium 8.7, Total Bilirubin 0.4, AST 25 D, ALT 16, Alkaline Phosphatase 72, Total Protein 5.7 L, Albumin 2.7 L, Globulin 3.0, Albumin/Globulin Ratio 0.9 L 07/17/23 11:23: POC Glucose 287 H I & O for Last 24 hours: Intake & Output 07/14/23 07/15/23 07/16/23 07/17/23 23:59 23:59 23:59 23:59 Intake Total 540 / 540 1800 / 1800 2405 / 2765 360 / 360 Output Total 0 / 0 0 / 0 1350 / 1850 1900 / 1900 Balance 540 / 540 1800 / 1800 1055 / 915 -1540 / -1540 Weight 150 lb 5.684 oz 148 lb 9.465 oz 144 lb 11.2 oz 149 lb Microbiology Reports for the Last 24 Hours: Microbiology 07/09/23 21:25 Blood Blood Culture - Final 07/09/23 21:25 Blood Blood Culture - Final Constitutional Constitutional: no acute distress and average body habitus *Routine HEENT Exam Head: Present normocephalic and atraumatic ENT: Present mucous membranes moist *Routine Neck Exam Neck: Present supple, full ROM and normal carotid upstroke; Absent JVD, carotid bruit or lymphadenopathy *Routine Respiratory Exam Respiratory: Present CTA bilaterally, normal respiratory effort, able to speak in complete sentences and symmetric chest movement *Routine Cardiovascular Exam Cardiovascular: Present RRR, Normal S1 and Normal S2; Absent murmur or gallop *Routine Abdominal Exam Abdominal: Present soft and normoactive bowel sounds; Absent tenderness, distended or organomegaly *Routine Extremities Exam Extremities: Present full ROM, pulses intact and normal capillary refill; Absent cyanosis, clubbing or edema *Routine Skin Exam Skin: Present intact and warm; Absent erythema *Routine Neurological Exam Neurological: Present alert, oriented X3 and CN II-XII intact; Absent sensory deficit or motor deficit Routine Psychiatric Exam Psychiatric: Present normal affect Progress Note: A&P Assessment and plan (1) DKA (diabetic ketoacidosis): Status: Acute (2) HFrEF (heart failure with reduced ejection fraction): Status: Acute (3) NSTEMI (non-ST elevated myocardial infarction): Status: Acute (4) Coronary artery disease: Status: Acute (5) Diabetes mellitus: Status: Acute (6) History of hypertension: Status: Acute (7) LV dysfunction: Status: Acute (8) Cardiomyopathy: Status: Acute (9) Hyperlipidemia: Status: Acute Assessment and Plan Assessment and Plan for All Diagnoses:: Plan: 1. This is a 58-year-old white female who was found to be in DKA and had altered mental status on admission. Her DKA has improved and insulin was stopped. She was restarted on Jardiance and metformin. Her bicarb and her anion gap worsened yesterday so she has been restarted on insulin and the Jardiance and metformin were stopped. The patient could be having normal glycemic DKA. Her anion gap and bicarb have improved today. Will continue to hold Jardiance. 2. The patient also had an elevated troponin consistent with a non-STEMI. Patient underwent left cardiac catheterization with multivessel stenting to the left main, LAD, first and second diagonal arteries and right coronary artery. She had a total of 5 stents placed and 8 balloon angioplasties. The patient will remain on Effient and aspirin for dual antiplatelet therapy. 3. The patient has severe LV dysfunction. She is increased risk for sudden cardiac due to his severe LV dysfunction. The patient will need a LifeVest in place prior to discharge home. The patient's LifeVest was denied by her insurance but she was approved under the [employer] income guidelines. The patient declined signing documentation yesterday for her LifeVest, will reattempt today to have her LifeVest fitted 4. As mentioned above we will stop her Jardiance due to her recurrence of DKA which this can cause a normoglycemic DKA in some patients. 5. Restart metoprolol and Entresto today for her HFrEF. 6. Her LDL goal is less than 55. Her LDL is 65. She is on a statin. 8. The patient is diabetic. She will need aggressive control of her diabetes. Will defer this to the hospitalist. 9. No further recommendations at this time from a cardiac standpoint. The patient can be discharged today from a cardiac standpoint with follow-up in cardiology clinic next week. She will need to be discharged on the following cardiac medications: Aspirin 81 mg daily, Lipitor 40 mg p.o. nightly, fenofi brate 134 mg daily, metoprolol XL 25 mg p.o. daily, Protonix 40 mg daily, Effient 10 mg daily, Entresto 24/26 mg p.o. twice daily, spironolactone 25 mg daily. Thank you for the opportunity to participate in the care of this patient. All recommendations and orders are per Dr. Olea.
[2023-07-17 16:00] VITALS: PULSE 106
--- NOTE | 2023-07-21 14:13 | CARE MANAGER ---
Contacted patient related to hospital discharge. She states she feels much better. She has all her medications, but wanted to know how to get 90 day supply sent. Advised her to speak with her PCP about it. She states that everyone was very nice during her stay and was very complimentary. She has an appt. tomorrow with PCP and is aware of appt with pulmonology and cardiology. Denies other questions. YADIRA Rivera
== END 2023-07-17 16:54 | disposition home or self-care (01) | DRG 981 ==
LOC: ER 21:11 → 2ND 23:30
PROVIDERS: Internal Medicine; Internal Medicine Adolescent Medicine; Internal Medicine Pulmonary Disease; Nurse Practitioner Critical Care Medicine; Nurse Practitioner Family; Physician Assistant; Admitting Provider Internal Medicine; Emergency Provider Emergency Medicine; Visit Provider Internal Medicine
PROC: 027337Z Dilation of Coronary Artery, Four or More Arteries with Four or More Drug-eluting Intraluminal Devices, Percutaneous Approach (ICD-10-PCS; principal; 2023-07-14 14:20)
DX: E11.10 Type 2 diabetes mellitus with ketoacidosis without coma (principal); I21.4 Non-ST elevation (NSTEMI) myocardial infarction; R57.9 Shock, unspecified; I42.9 Cardiomyopathy, unspecified; I50.20 Unspecified systolic (congestive) heart failure; R65.10 Systemic inflammatory response syndrome (SIRS) of non-infectious origin without acute organ dysfunction; R68.0 Hypothermia, not associated with low environmental temperature; Z85.51 Personal history of malignant neoplasm of bladder; Z85.3 Personal history of malignant neoplasm of breast; E78.5 Hyperlipidemia, unspecified; I25.10 Atherosclerotic heart disease of native coronary artery without angina pectoris; I11.0 Hypertensive heart disease with heart failure; Z79.84 Long term (current) use of oral hypoglycemic drugs
CPT/HCPCS: 36415; 70450; 71045; 71260; 74018; 74177; 80048; 80053; 80061; 80076; 81001; 82009; 82803; 82962; 83036; 83605; 83735; 84145; 84484; 85007; 85014; 85018; 85025; 85048; 85049; 85347; 85610; 87040; 87636; 92928; 92929; 93005; 93306; 93308; 93458; 97163; 97166; 99152; 99153; 99291; C1725; C1769; C1874; C1876; C9600; C9601; J1644; J2405; Q9957; Q9967

== ENCOUNTER 2023-09-04 12:34 | Outpatient (CLI) | payer BC, SELFPAY ==
[2023-09-04 13:28] LABS: Alanine Aminotransferase 45 U/L (12-78); Albumin Level 4.3 g/dl (3.5-5.0); Albumin/Globulin Ratio 1.6 (1.1-1.8); Alkaline Phosphatase 74 U/L (38-126); Aspartate Amino Transferase 52 U/L (14-36); Bilirubin,Total 0.4 mg/dl (0.2-1.3); Blood Urea Nitrogen 15 mg/dl (7-17); Calcium 9.9 mg/dl (8.4-10.2); Carbon Dioxide 30 mmol/L (22.0-30.0); Chloride 105 mmol/L (98-107); Estimated Glomerular Filt Rate 127 ml/min (>60); GFR (African American) 154 ML/MIN (>60); Globulin 2.7 g/dL (1.3-3.2); Glucose 117 mg/dl (74-100); Sodium 140 mmol/L (136-145)
== END 2023-09-04 23:59 ==
LOC: LAB.DROPOF 12:35
PROVIDERS: PCP Nurse Practitioner Family; Visit Provider Nurse Practitioner Family
DX: N17.9 Acute kidney failure, unspecified (principal); E11.9 Type 2 diabetes mellitus without complications; Z79.4 Long term (current) use of insulin; Z79.84 Long term (current) use of oral hypoglycemic drugs
CPT/HCPCS: 80053

== ENCOUNTER 2023-09-29 10:58 | Outpatient (CLI) | payer BC, SELFPAY ==
[2023-09-29 11:54] LABS: Chloride 109 mmol/L (98-107); Potassium 3.9 mmoL/L (3.5-5.1); Sodium 142 mmol/L (136-145)
[2023-09-29 11:57] LABS: Anion Gap 7.9 mEq/L (5-15); Blood Urea Nitrogen 15 mg/dl (7-17); Carbon Dioxide 29 mmol/L (22.0-30.0); Estimated Glomerular Filt Rate 127 ml/min (>60); GFR (African American) 154 ML/MIN (>60); Glucose 177 mg/dl (74-100)
[2023-09-29 11:58] LABS: Calcium 9.6 mg/dl (8.4-10.2)
== END 2023-09-29 23:59 | disposition home or self-care (01) ==
LOC: LAB 10:58
PROVIDERS: PCP Nurse Practitioner Family; Visit Provider Nurse Practitioner
DX: I95.9 Hypotension, unspecified (principal)
CPT/HCPCS: 36415; 80048

== ENCOUNTER 2023-10-13 08:16 | Outpatient (CLI) | payer BC, SELFPAY ==
--- NOTE | 2023-10-13 | CA_ITS ---
APPROVED REPORT EXAM: Limited 2D Echocardiogram Chief Information Security Officer: Claire Zabala CRT Ht: 5 ft 3 in Wt: 138lbs BSA: 1.65 BP: 104/70 mmHg Indications: ef check life vest, ef 20%07/10/23 M-Mode Dimensions RVDd 2.20 cm (0.9-2.6) LA Diam 3.06 cm (1.9-4.0) LVDd 4.91 cm (3.5-5.7) LVDs 3.08 cm (3.5-5.7) IVSd 1.07 cm (0.6-1.1) PWd 0.67 cm (0.6-1.1) EF (Teich) 67.10% FS 37.30% EDV (Teich) 113.40 mL ESV (Teich) 37.30 mL Other Information Study Quality: Fair Conclusion This is a limited TTE to evaluate for LVEF. Limited windows were obtained. The left ventricle is normal in size. There is normal LV wall thickness. There is mild reduction in global LV systolic function. There is severe hypokinesis of the septal and anteroseptal LV he and towards the LV apex. The distal anteroseptal LV wall appears dyskinetic. LVEF is 45%. Compared to prior study from 07/10/2023, the LVEF is improved. Electronically signed by : Dolores Olea MD 10/16/2023 00:14:30
== END 2023-10-13 23:59 | disposition home or self-care (01) ==
LOC: RT 08:17
PROVIDERS: PCP Nurse Practitioner Family; Visit Provider Nurse Practitioner Family
DX: I25.10 Atherosclerotic heart disease of native coronary artery without angina pectoris (principal); I50.20 Unspecified systolic (congestive) heart failure
CPT/HCPCS: 93308

== ENCOUNTER 2023-11-06 14:20 | Outpatient (CLI) | payer BC, SELFPAY ==
[2023-11-06 15:21] LABS: Hemoglobin A1C 6.3 % (4.0-6.0)
[2023-11-06 17:51] LABS: Alanine Aminotransferase 21 U/L (12-78); Albumin Level 4.6 g/dl (3.5-5.0); Albumin/Globulin Ratio 1.6 (1.1-1.8); Alkaline Phosphatase 60 U/L (38-126); Anion Gap 18.4 mEq/L (5-15); Aspartate Amino Transferase 27 U/L (14-36); Bilirubin,Total 0.5 mg/dl (0.2-1.3); Blood Urea Nitrogen 22 mg/dl (7-17); Calcium 9.8 mg/dl (8.4-10.2); Carbon Dioxide 29 mmol/L (22.0-30.0); Chloride 98 mmol/L (98-107); Chol/HDL Ratio 3.3 (1-3.5); Cholesterol 118 mg/dl (140-200); Estimated Glomerular Filt Rate 103 ml/min (>60); GFR (African American) 125 ML/MIN (>60); Globulin 2.8 g/dL (1.3-3.2); Glucose 114 mg/dl (74-100); HDL Cholesterol 36 mg/dl (40-60); Potassium 4.4 mmoL/L (3.5-5.1); Sodium 141 mmol/L (136-145); Total Protein,Serum 7.4 g/dl (6.3-8.2); Triglycerides 134 mg/dl (30-150); VLDL Cholesterol 27 mg/dL (0-40)
[2023-11-06 18:02] LABS: Direct LDL Cholesterol 66.37 mg/dL (100-129)
== END 2023-11-06 23:59 | disposition home or self-care (01) ==
LOC: LAB.DROPOF 14:21
PROVIDERS: PCP Nurse Practitioner Family; Visit Provider Nurse Practitioner Family
DX: E11.9 Type 2 diabetes mellitus without complications (principal); E78.2 Mixed hyperlipidemia; Z79.84 Long term (current) use of oral hypoglycemic drugs; Z79.899 Other long term (current) drug therapy
CPT/HCPCS: 80053; 80061; 83036

== ENCOUNTER 2024-02-05 12:33 | Outpatient (CLI) | payer BC, SELFPAY ==
[2024-02-05 09:41] LABS: Microscopic, Urine URINE MICROSCOPIC (MICROSCOPIC)
[2024-02-05 10:14] LABS: Appearance,Urine CLEAR (Clear); Bilirubin,Urine Negative (Negative); Blood, Urine Negative (Negative); Color,Urine YELLOW (Yellow); Glucose,Urine (UA) Negative (Negative); Ketones,Urine Negative (Negative); Leukocyte Esterase,Urine 2+ (Negative); Nitrate,Urine Negative (Negative); PH,Urine 5.5 (5.0-8.5); Protein,Urine Negative (Negative); Specific Gravity, Urine >= 1.030 (1.005-1.030)
[2024-02-05 10:21] LABS: Creatinine,Urine Random 115 mg/dL (Not Estab.)
[2024-02-05 10:25] LABS: Microalbumin/Creatinine Ratio 16.4
[2024-02-05 10:47] LABS: Chloride 109 mmol/L (98-107); Potassium 4.9 mmoL/L (3.5-5.1); Sodium 144 mmol/L (136-145)
[2024-02-05 10:50] LABS: Anion Gap 13.9 mEq/L (5-15); Blood Urea Nitrogen 18 mg/dl (7-17); Carbon Dioxide 26 mmol/L (22.0-30.0); Cholesterol 145 mg/dl (140-200); Estimated Glomerular Filt Rate 103 ml/min (>60); GFR (African American) 124 ML/MIN (>60); Triglycerides 76 mg/dl (30-150); VLDL Cholesterol 15 mg/dL (0-40)
[2024-02-05 10:51] LABS: Calcium 9.9 mg/dl (8.4-10.2); Chol/HDL Ratio 2.8 (1-3.5); Glucose 139 mg/dl (74-100); HDL Cholesterol 51 mg/dl (40-60)
[2024-02-05 11:01] LABS: Direct LDL Cholesterol 70.86 mg/dL (100-129)
[2024-02-05 11:03] LABS: Bacteria,Urine Trace /lpf; Squamous Epithelial Cell,Urine Occasional #/hpf (0-5)
[2024-02-05 15:12] LABS: Hemoglobin A1C 6.6 % (4.0-6.0)
[2024-02-06 10:14] LABS: HCV Ab Non Reactive (Non Reactive)
[2024-02-06 10:42] LABS: HIV (1&2) Antibody Rapid NONREACTIVE (NONREACTIVE)
== END 2024-02-05 23:59 | disposition home or self-care (01) ==
LOC: LAB.DROPOF 12:34
PROVIDERS: PCP Nurse Practitioner Family; Visit Provider Nurse Practitioner Family
DX: E11.9 Type 2 diabetes mellitus without complications (principal); Z79.84 Long term (current) use of oral hypoglycemic drugs; Z11.59 Encounter for screening for other viral diseases; E78.2 Mixed hyperlipidemia; Z11.4 Encounter for screening for human immunodeficiency virus [HIV]
CPT/HCPCS: 86803; 86703; 80048; 80061; 81001; 82043; 82570; 83036; 87086

== ENCOUNTER 2024-05-17 14:36 | Outpatient (CLI) | payer BC, SELFPAY ==
[2024-05-17 12:56] LABS: Microscopic, Urine URINE MICROSCOPIC (MICROSCOPIC)
[2024-05-17 13:43] LABS: Appearance,Urine CLEAR (Clear); Bilirubin,Urine Negative (Negative); Blood, Urine Negative (Negative); Color,Urine YELLOW (Yellow); Glucose,Urine (UA) TRACE (Negative); Ketones,Urine Negative (Negative); Leukocyte Esterase,Urine Negative (Negative); Nitrate,Urine Negative (Negative); PH,Urine 7.5 (5.0-8.5); Protein,Urine Negative (Negative); Specific Gravity, Urine 1.025 (1.005-1.030)
[2024-05-17 13:52] LABS: Creatinine,Urine Random 87 mg/dL (Not Estab.)
[2024-05-17 13:54] LABS: Microalbumin/Creatinine Ratio 7.1
[2024-05-17 14:13] LABS: Bacteria,Urine Trace /lpf; Squamous Epithelial Cell,Urine Occasional #/hpf (0-5)
[2024-05-17 14:15] LABS: Hemoglobin A1C 6.9 % (4.0-6.0)
[2024-05-17 14:51] LABS: Chloride 107 mmol/L (98-107); Potassium 4.7 mmoL/L (3.5-5.1); Sodium 141 mmol/L (136-145)
[2024-05-17 14:54] LABS: Anion Gap 13.7 mEq/L (5-15); Blood Urea Nitrogen 16 mg/dl (7-17); Calcium 9.6 mg/dl (8.4-10.2); Carbon Dioxide 25 mmol/L (22.0-30.0); Cholesterol 118 mg/dl (140-200); Estimated Glomerular Filt Rate 127 ml/min (>60); GFR (African American) 153 ML/MIN (>60); Glucose 136 mg/dl (74-100); Triglycerides 87 mg/dl (30-150); VLDL Cholesterol 17 mg/dL (0-40)
[2024-05-17 14:55] LABS: Chol/HDL Ratio 2.6 (1-3.5); HDL Cholesterol 45 mg/dl (40-60)
[2024-05-17 15:05] LABS: Direct LDL Cholesterol 58.21 mg/dL (100-129)
[2024-05-17 15:11] LABS: Free T4 (Free Thyroxine) 1.18 ng/dl (0.78-2.19)
[2024-05-17 15:26] LABS: Thyroid Stimulating Hormone 1.75 uIU/mL (0.465-4.68)
[2024-05-17 16:17] LABS: 25-OH Vitamin D, Total 24.1 ng/mL (30-100)
[2024-05-17 16:49] LABS: Vitamin B12 286 pg/mL (239-931)
== END 2024-05-17 23:59 | disposition home or self-care (01) ==
LOC: LAB.DROPOF 14:36
PROVIDERS: PCP Nurse Practitioner Family; Visit Provider Nurse Practitioner Family
DX: G62.9 Polyneuropathy, unspecified (principal); E78.2 Mixed hyperlipidemia; E11.9 Type 2 diabetes mellitus without complications; Z79.84 Long term (current) use of oral hypoglycemic drugs
CPT/HCPCS: 80048; 80061; 81001; 82043; 82306; 82570; 82607; 83036; 84439; 84443; 87086

== ENCOUNTER 2024-08-05 07:57 | Outpatient (CLI) | payer BC, SELFPAY | END 2024-08-05 23:59 | disposition home or self-care (01) | LOC: RAD 07:58 | PROVIDERS: PCP Nurse Practitioner Family; Visit Provider Nurse Practitioner Family | DX: Z12.31 Encounter for screening mammogram for malignant neoplasm of breast (principal) | CPT/HCPCS: 77063; 77067 ==

== ENCOUNTER 2024-12-20 10:08 | Outpatient (CLI) | payer BC, SELFPAY ==
[2024-12-20 16:11] LABS: Microscopic, Urine URINE MICROSCOPIC (MICROSCOPIC)
[2024-12-20 16:46] LABS: Hematocrit 40.5 % (37.0-47.0); Hemoglobin 12.8 g/dL (12.2-16.2); Immature Granulocytes % 0.3 %; Mean Corpuscular HGB Conc 31.6 g/dL (31.8-35.4); Mean Corpuscular Hemoglobin 29.0 pg (27.0-31.2); Mean Corpuscular Volume 91.8 fl (81-99); Nucleated Red Blood Cells % 0 %; Platelet Count 277 K/mm3 (142-424); Red Blood Count 4.41 M/mm3 (4.20-5.40); Red Cell Distribution Width-SD 45.4 fL; White Blood Count 9.7 K/mm3 (4.8-10.8)
[2024-12-20 17:28] LABS: Alanine Aminotransferase 10 U/L (12-78); Albumin Level 4.7 g/dl (3.5-5.0); Albumin/Globulin Ratio 1.7 (1.1-1.8); Alkaline Phosphatase 65 U/L (38-126); Anion Gap 18.8 mEq/L (5-15); Aspartate Amino Transferase 19 U/L (14-36); Bilirubin,Total 0.6 mg/dl (0.2-1.3); Blood Urea Nitrogen 14 mg/dl (7-17); Calcium 10.0 mg/dl (8.4-10.2); Carbon Dioxide 27 mmol/L (22.0-30.0); Chloride 100 mmol/L (98-107); Cholesterol 113 mg/dl (140-200); Creatinine,Serum 0.60 mg/dl (0.52-1.04); Estimated Glomerular Filt Rate 103 ml/min (>60); GFR (African American) 124 ML/MIN (>60); Globulin 2.8 g/dL (1.3-3.2); Glucose 130 mg/dl (74-100); HDL Cholesterol 42 mg/dl (40-60); Potassium 4.8 mmoL/L (3.5-5.1); Sodium 141 mmol/L (136-145); Total Protein,Serum 7.5 g/dl (6.3-8.2); Triglycerides 78 mg/dl (30-150)
[2024-12-20 17:38] LABS: 25-OH Vitamin D, Total 31.1 ng/mL (30-100)
[2024-12-20 18:21] LABS: Vitamin B12 282 pg/mL (239-931)
[2024-12-20 19:56] LABS: Bilirubin,Urine Negative (Negative); Color,Urine YELLOW (Yellow); Glucose,Urine (UA) Negative (Negative); Ketones,Urine Negative (Negative); Leukocyte Esterase,Urine 1+ (Negative); PH,Urine 6.0 (5.0-8.5); Protein,Urine Negative (Negative); Specific Gravity, Urine 1.020 (1.005-1.030); Urobilinogen,Urine 1.0 EU/dl (0.2)
[2024-12-20 20:31] LABS: Bacteria,Urine 1+ /lpf
[2024-12-20 20:32] LABS: Hemoglobin A1C 7.9 % (4.0-6.0)
--- OUTSIDE RECORDS SUMMARY | 2024-12-21 12:29 | XMS_ITS | Data Portability ---
Author Organization [place] - [facility], zhangAlda isabel Valentingabriele Address [address] [place] [address] Care Team Providers Care Bisque Ware Dipper Name Role Phone PORTER URBINA Primary Care Provider Assessment Encounter Date Assessment Date Assessment LastModified by Organization Details LastModified Time 07/03/2022 07/03/2022 This visit was completed via video. All issues as below were discussed and addressed but no in person physical exam/vitals were performed. Patient has provided consent per state regulations. Patient has also verbally consented to this visit and understands the limitations of virtual care medicine primary kit and labs ordered for upcoming cdm appt Not available 07/03/2022 10:10:29 05/03/2024 05/03/2024 This visit was completed via telephone. All issues as below were discussed and addressed but no in person physical exam/vitals were performed. Patient has provided consent per state regulations. Patient has also verbally consented to this visit and understands the limitations of virtual care medicine. Phone visit done using multiple modalities including reviewing information sent by the pt today via the [employer] portal. Not available 05/03/2024 08:47:37 06/17/2024 06/17/2024 This visit was completed via telephone. All issues as below were discussed and addressed but no in person physical exam/vitals were performed. Patient has provided consent per state regulations. Patient has also verbally consented to this visit and understands the limitations of virtual care medicine. Phone visit done using multiple modalities including reviewing information sent by the pt today via the [employer] portal. Not available 06/17/2024 10:40:19 Plan of Treatment Reminders Order Date Submit Date Provider Last Modified By Organization Details Last Modified Time Details Appointments None recorded. Lab CMP, serum or plasma 2022 023 [email or web address] [facility] ([place]), [facility] [place], [address], 3 08:49:09 lipid panel, serum 2022 023 [email or web address] [facility] ([place]), [address] [place] [address], [address], 3 08:49:09 CBC w/ auto diff 2022 023 [email or web address] [facility] ([place]), [address] [place] [address], [address], 3 08:49:09 unlisted lab - TSH reflex to t4f 2022 023 [email or web address] [facility] ([place]), [address] [place] [address], [address], 3 14:11:58 HbA1c (hemoglobin A1c), blood 2022 023 [email or web address] [facility]), [facility] [place], [address], 3 08:49:10 vitamin D, 25-hydroxy, total, serum 2022 023 [email or web address] [facility] ([place]), [address] [place] [address], [address], 3 08:49:10 HIV 1 + 2, meaningful use set 2022 023 [email or web address] [facility] ([place]), [address] [place] [address], [address], 3 08:49:10 hepatitis C Ab, signal-to-c utoff, serum or plasma 2022 023 [email or web address] [facility] ([place]), [address] [place], [address], 3 08:49:10 albumin/cre atinine, mass ratio, urine 2022 023 [email or web address] [facility] ([place]), [address] [place], [address], 3 08:49:10 Referral None recorded. Procedures None recorded. Surgeries None recorded. Imaging None recorded. Medication Orders azelastine 137 mcg (0.1 %) nasal spray [id number] [address] [place] [address], [address], 5 08:28:26 amoxicillin 875 mg-potassiu m clavulanate 125 mg tablet 2024 025 [facility] [address] [place] [address], [address], 5 12:16:54 benzonatate 100 mg capsule 2024 025 [facility] [address] [place] [address], [address], 5 12:16:57 ciprofloxac in 500 mg tablet 2023 025 [facility] [address] [place] [address], [address], 5 10:17:24 Pyridium 200 mg tablet 2023 025 [facility] [address] [place] [address], [address], 5 10:18:27 fluconazole 150 mg tablet [address]/[facility] #2332, [address] [place] [address], [address], 07:48:25 Patient TargetsNo targets recorded. Patient Instructions Encounter Date Encounter Id Patient Instructions Last Modified By Organization Details Last Modified Time 05/03/2024 [id number] It was nice speaking with you today. I hope you feel better soon. If your symptoms are worse or persist, please seek in person care at a local urgent care/emergency department/medica l provider's office. You can call us at [phone] for any questions or concerns. You can also send us a message via the [employer] portal for non-urgent issues. Not available 05/03/2024 08:50:08 06/17/2024 [id number] It was nice speaking with you today. I hope you feel better soon. If your symptoms are worse or persist, please seek in person care at a local urgent care/emergency department/medica l provider's office. You can call us at [phone] for any questions or concerns. You can also send us a message via the [employer] portal for non-urgent issues. Not available 06/17/2024 10:41:23 Reason for Referral None Reported. Problems Name Problem SNOMED Code Status Onset Date Resolution Date Notes Provider Name and Address Organization Details Recorded Time Type 2 diabetes mellitus 69875681 Active 2022 borderline Bebeto Marshall DO [address], [place], [address], [place] [facility] 3 08:42:18 Hyperlipid emia 43339576 Active 2022 Bebeto Marshall DO [address], [place], [address], [place] [facility] 3 08:42:38 Acute upper respirator y infection 51374420 Active 2022 Bebeto Marshall DO [address], [place], [address], [place] - [facility] 3 08:48:27 Acute maxillary sinusitis 16243883 Active 2024 Bebeto Marshall DO [address], [place], [address], [place] [facility] 5 07:24:04 Allergic rhinitis 42125434 Active 2024 Bebeto Marshall DO [address], [place], [address], [facility] 5 12:22:25 Problem Notes None recorded. Procedures Surgical History Date Name Laterality Status Provider Name and Address Organization Details Recorded Time 04/21/20 Colonoscopy completed Fiona Rine [place] [facility] 06/27/19 08:35:17 07/20/19 05 Caesarean Section completed Fiona Rine [place] [facility] 08:35:17 06/09/19 05 section completed Fiona Rine [place] [facility] 08:19:09 11/30/19 02 Gall Bladder Removed completed Fiona Rine [place] [facility] 06/27/2022 08:35:17 08/08/19 02 cholecystectomy completed Fiona Rine [place] [facility] 06/09 08:19:03 Imaging Results None recorded. Procedure Notes None recorded. Medical Equipment None Reported. Allergies Allergen ID Allergen Name Allergen Category Reaction Reaction Severity Criticality Documentation Date Start Date Code Code System Note Provider Name and Address Organization Details Recorded Time 300270 Jardiance medicatio n other moderate low 05/03/2024 40579 59 RxNorm DKA and UTI 2/2 jardi ance 08/02 Aniyah Hand MD [address], [place], [address], [facility] 4 08:42:25 Medications Name Sig Start Date Stop Date Status Note LastModified by Organization Details LastModified Time freestyle lancets misc active Not Available Not Available Not Available amoxicilli n 500 mg capsule 06/27 completed Not Available Not Available Not Available atorvastat in 40 mg tablet TAKE 1 TABLET BY MOUTH EVERY DAY active Not Available Not Available No t Available metformin 500 mg tablet TAKE 1 TABLET BY MOUTH EVERY DAY 05/03 completed Not Available Not Available Not Available azithromyc in 250 mg tablet 05/03 completed Not Available Not Available Not Available pravastati n 40 mg tablet TAKE 1 TABLET BY MOUTH EVERY DAY FOR 90 DAYS 05/03 completed Not Available Not Available Not Available fluconazol e 150 mg tablet TAKE 1 TABLET BY MOUTH NOW, MAY REPEAT AGAIN IN 3 DAYS IF SYMPTOMS PERSIST 05/03 completed Not Available Not Available Not Available metoprolol succinate ER 50 mg tablet,ext ended release 24 hr TAKE 1 TABLET BY MOUTH EVERY DAY active Not Available Not Available No t Available cephalexin 250 mg capsule TAKE 1 CAPSULE BY MOUTH FOUR TIMES A DAY FOR 10 DAYS 05/03 completed Not Available Not Available Not Available FreeStyle Lancets 28 gauge DIRECTED active Not Available Not Available No t Available phenazopyr idine 200 mg tablet Take 1 tablet 3 times a day by oral route as needed. 06/17 completed Not Available Not Available Not Available gabapentin 400 mg capsule TAKE 1 CAPSULE BY MOUTH TWICE A DAY active Not Available Not Available No t Available ciprofloxa lexy 500 mg tablet Take 1 tablet twice a day by oral route for 7 days. 06/17 completed Not Available Not Available Not Available sulfametho xazole 800 mg-trimeth oprim 160 mg tablet TAKE 1 TABLET BY MOUTH TWICE A DAY FOR 10 DAYS 05/03 completed as needed for boils Not Available Not Available Not Available aspirin 81 mg tablet,del ayed release TAKE 1 TABLET BY MOUTH EVERY DAY FOR 90 DAYS active Not Available Not Available No t Available spironolac tone 25 mg tablet TAKE 1 TABLET ONCE DAILY active Not Available Not Available No t Available sodium bicarbonat e 650 mg tablet TAKE 2 TABLETS ORALLY TWICE A DAY 05/03 completed Not Available Not Available Not Available benzonatat e 100 mg capsule TAKE 1 CAPSULE BY MOUTH THREE TIMES A DAY 08/26 completed Not Available Not Available Not Available pantoprazo le 40 mg tablet,del ayed release TAKE 1 TABLET BY MOUTH EVERY DAY FOR 90 DAYS active Not Available Not Available No t Available metformin 1,000 mg tablet TAKE 1 TABLET BY MOUTH TWICE A DAY active Not Available Not Available No t Available nystatin 100,000 unit/gram topical cream 06/27 completed Not Available Not Available Not Available hydrochlor othiazide 12.5 mg capsule TAKE 1 CAPSULE IN THE MORNING ORALLY ONCE A DAY 90 DAY(S) active PRN Not Available Not Available No t Available mupirocin 2 % topical ointment APPLY 1 APPLICAT ION TOPICALL Y TWICE A DAY NEEDED FOR INFECTIO N 05/03 completed Not Available Not Available Not Available metoprolol succinate ER 25 mg tablet,ext ended release 24 hr TAKE 1 TABLET ORALLY DAILY FOR 30 DAYS 05/03 completed Not Available Not Available Not Available nystatin 100,000 unit/gram topical powder 06/27 completed Not Available Not Available Not Available azelastine 137 mcg (0.1 %) nasal spray SPRAY 2 SPRAYS BY INTRANAS AL ROUTE TWICE A DAY 2024 active Not Available Not Available Not Avai lable estradiol 0.01% (0.1 mg/gram) vaginal cream 1 APPFUL VAGINALL Y DAILY active Not Available Not Available No t Available ondansetro n 4 mg disintegra ting tablet 08/26 completed Not Available Not Available Not Available amoxicilli n 875 mg-potassi um clavulanat e 125 mg tablet TAKE 1 TABLET BY MOUTH EVERY 12 HOURS 08/26 completed Not Available Not Available Not Available meclizine 25 mg chewable tablet 08/26 completed Not Available Not Available Not Available insulin lispro (U-100) 100 unit/mL subcutaneo us pen 4 UNIT (0.04 ML) SUBCUTAN EOUSLY THREE TIMES A DAY FOR 30 DAYS 05/03 completed Not Available Not Available Not Available nitrofuran toin monohydrat e/macrocry stals 100 mg capsule TAKE 1 CAPSULE ORALLY EVERY 12 HOURS FOR 7 DAYS MUST ADMINIST ER WITH A MEAL/ALEJANDRA D 05/03 completed Not Available Not Available Not Available Blood Pressure Kit active Not Available Not Available Not Available BD Ultra-Fine Short Pen Needle 31 gauge x 5/16 USE 1 PEN NEEDLE EACH DIRECTED active Not Available Not Available No t Available fenofibrat e nanocrysta llized 145 mg tablet TAKE 1 TABLET BY MOUTH EVERY DAY active Not Available Not Available No t Available FreeStyle Lite Strips DIRECTED active Not Available Not Available No t Available Lantus Solostar U-100 Insulin 100 unit/mL (3 mL) subcutaneo us pen INJECT 10 UNITS UNDER THE SKIN DAILY AT BEDTIME 05/03 completed Not Available Not Available Not Available FreeStyle Holiday Lite kit USE DIRECTED active Not Available Not Available No t Available cholecalci ferol (vitamin D3) 50 mcg (2,000 unit) capsule TAKE 1 CAPSULE BY MOUTH EVERY DAY active Not Available Not Available No t Available prasugrel HCl 10 mg tablet TAKE 1 TABLET ONCE DAILY active Not Available Not Available No t Available Jardiance 25 mg tablet TAKE 1 TABLET BY MOUTH EVERY DAY 05/03 completed Not Available Not Available Not Available Entresto 24 mg-26 mg tablet TAKE 1 TABLET BY MOUTH TWICE A DAY active Not Available Not Available No t Available insulin lispro (U-100) 100 unit/mL subcutaneo us half-unit pen INJECT 5U DIRECTED SUBCUTAN EOUS THREE TIMES A DAY WITH MEALS 30 DAYS 05/03 completed Not Available Not Available Not Available Rybelsus 14 mg tablet TAKE 1 TABLET BY MOUTH EVERY DAY active Not Available Not Available No t Available Rybelsus 7 mg tablet TAKE 1 TABLET DAILY 05/03 completed Not Available Not Available Not Available Dexcom G7 Pan Shaker USE DIRECTED active Not Available Not Available No t Available Dexcom G7 Sensor device APPLY AND REPLACE DIRECTED active Not Available Not Available No t Available Vitals Date Recorded Body height Body mass index (BMI) Body weight Heart rate Oxygen saturation Oxygen saturation in Arterial blood by Pulse oximetry Systolic And Diastolic Provider Name and Address Organization Details Last Updated DateTime 160.02 cm 22.3 kg/m2 96996.6 4 g 89 /min 99 % 99 % 117/71 mm[Hg] Ashley Yao RN [address], [place], [address], [place] [facility] 10:20:01 Date Recorded Body height Body mass index (BMI) Body weight Provider Name and Address Organization Details Last Updated DateTime 06/29/2024 160.02 cm 22.3 kg/m2 73963.64 g Manda Bell [place] [facility] 06/29/2024 07:18:23 Date Recorded Body height Body mass index (BMI) Body weight Systolic And Diastolic Provider Name and Address Organization Details Last Updated DateTime 08/26/2024 160.02 cm 22.3 kg/m2 94119.64 g 117/78 mm[Hg] Manda Bell [place] [facility] 08/26/2024 12:16:14 Date Recorded Heart rate Body temperature Systolic And Diastolic Provider Name and Address Organization Details Last Updated DateTime 05/03/2024 83 /min 98.6 [degF] 113/80 mm[Hg] Aniyah Hand MD [address], [place], [address], [place] [facility] 05/03/2024 08:48:20 Date Recorded Body height Body mass index (BMI) Body weight Provider Name and Address Organization Details Last Updated DateTime 05/03/2024 160.02 cm 22.5 kg/m2 13027.23 g Ashley Yao RN [address], [place], [address], [place] [facility] 05/03/2024 08:33:31 Social History Question Answer Notes LastModified by Organizat ion Details LastModified Time Tobacco Smoking Status Never Smoker Fiona arrieta, [place] [facility] 06/27/2022 08:35:16 What Is Your Level Of Caffeine Consumption? Occasional Information not available 06/27/2022 What Is The Highest Grade Or Level Of School You Have Completed Or The Highest Degree You Have Received? [id number] Information not available 06/27/2022 Does Anyone Insult Or Talk Down To You? Never Information not available 06/27/2022 Does Anyone Physically Hurt You At Home? Never Information not available 06/27/2022 Lives With 2 Children Information not available 06/27/2022 Sleep Habits 7-8 Hours Information not available 06/27/2022 Have You Ever Served In The ? No Information not available 06/27/2022 What Is Your Relationship Status? Information not available 06/27/2022 Sex: Unknown Functional Status Question Answer Note LastModified by Organizat ion Details LastModified Time Do you or have you ever used any other forms of tobacco or nicotine? No Information not available 06/27/2022 What is your level of alcohol consumption? None Information not available 06/27/2022 Do you or have you ever used smokeless tobacco? Never used smokeless tobacco Information not available 06/27/2022 What is your occupation? [employer] [email or web address] Information not available 06/17/2024 Do you or have you ever used e-cigarettes or vape? Never used electronic cigarettes Information not available 06/27/2022 Mental Status None recorded. Family History Relationship Description Onset Age of this Age Resolved Age Notes LastModified by Organization Details LastModified Time Mother Harmful pattern of use of alcohol krine Not available 2022 08:35:14 Father Myocardial infarction krine Not available 06/27 08:35:14 Medical History Condition Response Sinus Infections Y Gynecological HistoryNo gynecological history recorded. Obstetrics History GPAL:G 0 P 0 0 0 0 Past Encounters Encounter ID Performer Location Encounter Start Date Encounter Closed Date Diagnosis/Indication Diagnosis SNOMED-CT Code Diagnosis ICD10 Code Diagnosis Note [id number] Bebeto Marshall DO [facility] ere [address] [facility], [place] [address] [place] [address] 06/27/2022 08:28:14 06/27/2022 09:28:44 Acute upper respiratory infection 41699603 J06.9 likely viral in origin. rest, hydrate.ta ke sudafed 30mg every 6 hours for 5-7d.sched ule if no better or worsening. [id number] Aniyah Hand MD [facility] ere [address] [facility] [address] [facility], [place] [address] [place] [address] 4 07/03/2022 09:36:09 07/03/2022 10:22:09 Vaginitis 11720115 N76.0 Acute Vaginitis- likely torey based on history and sxsStart Diflucan as directed belowAdvis ed agnst regular baths, douching and encouraged daily yogurt/pro biotic intake to prevent recurrent infections Medication instructio ns, precaution s, and side effects were reviewed in detail with patient/gu mgdian todayInstr ucted to call office or seek immediate care if with worsening or persistent symptoms Adult [facility] th examination [id number] Z00.00 [id number] Aniyah Hand MD [facility] ere [address] [place] [address] [place] [address] 05/03/2024 08:28:35 05/03/2024 09:01:42 Dysuria 52132772 R30.0 with urinary frequency/ urgency- likely UTIStart Cipro bid x 7 daysPyridi um prn dysuria- pt/chris n warned not to have her wear contacts while taking this as it can stain them orangeAdvi sed to send Ucx to confirm, pt declines Advised to drink clear fluids, reduce sexual activity, and take prescribed medication s as instructed .Discussed risks to include wiping after urinating, bubble baths, and poor hydrationA dvised urination before and after intercours e for prevention Medication instructio ns, precaution s, and side effects were reviewed in detail with patient/gu jessica Jacobotr ucted to call office or seek immediate care if with worsening or persistent symptoms. [id number] Aniyah Hand MD [facility] ere [address] [place] [address] 06/17/2024 10:32:17 06/17/2024 10:54:13 Acute upper respiratory infection 66107438 J06.9 Patient with acute onset URI sxs in no significan t respirator y distress based on sxs reported virtually, pt likely w common viral URI, COVID 19 possible Recommend testing for covid/flu. Quarantine until you get results. If you are positive for Covid-19 or influenza A/B, contact our office immediatel y as you may be eligible for anti viral medication s to limit associated complicati ons. The CDC recommends isolation until fever free with reduced symptoms for over 24 hours. Remain masked and/or distance yourself from others for the next 5 days when out in public. Advised to drink plenty of fluids, run a cool-mist humidifier in room at night, gargle salt water for sore throat, and get plenty of rest. Patient should avoid over-exert ion and reduce exposure to irritants such as smoke, cold, dry air, and dust. Encouraged rest, saline rinses, Flonase, Mucinex, and increasing Vitamin C and water intake. Treatment currently involves symptomati c relief. Patient may take acetaminop hen or ibuprofen as directed to reduce fever and body aches. Antihistam ine and decongesta nt usage was discussed and recommenda tions made. BP specific if needed-dis cussed BP side effects. Reviewed symptomati c care instructio ns, the expected course of these illnesses and explained that coughing can persist for some time. Provided precaution s for signs of worsening disease. Encouraged to seek immediate in person care if sxs persist or worsen. [id number] Bebeto Marshall DO [facility] ere [address] [place] [address] [place] [address] 06/29/2024 07:15:40 06/29/2024 07:39:54 Acute maxillary sinusitis 94076344 J01.00 Will treat given progressio n and worsening symptoms despite conservati ve measures.S chedule if questions or concerns, no better or worsening symptoms. [id number] Bebeto Marshall, DO [facility] [address] [place] [address] [place] [address] 08/26/2024 12:10:58 08/26/2024 12:35:11 Allergic rhinitis 66412292 J30.9 symptoms are likely allergic.s tart claritin and alternate with Maki every 4 wks.start azelastine .Schedule if questions or concerns, no better or worsening symptoms. Health Concerns Section Related Observation LastModified by Organization Detai ls LastModified Time None Recorded Concern Status LastModified by Organization Details LastModified Time None Recorded Advance Directives Directive None Recorded Payers Insurance Date Sequence Insurance Name Policy Number Policy Spear Covered Member ID Spear Member ID Guarantor Name 08/26/2024 1 [place] [facility] (HP) (PPO) [id number] Madelinesurekha Greenfield [id number] Madelinesurekha Greenfield 05/03/2024 1 [place] [facility] ([place] [id number] Madelinesurekha Greenfield [id number] Madeline Greenfield 05/03/2024 1 *SELF PAY* 23 Mo na Jean [place] Notes Date Note Type Note Provider Name and Address Organization Details Recorded Time 3 text/html VIDEO CONSULTATION Patient name, and emergency contact verified.Patient Location - [facility] Location - [facility] -Telemedicine limitations discussed with patient. Patient verbally consented to consultation and treatment with telehealth today. Pt c/o vaginal itching, redness, burning with some white discharge-no odor. Sx's began 3 days ago. Pt hasn't used any OTC's. Pt would like to know if jardiance is contributing to yeast infections. Pt also uses a pessary for bladder incontinence. PB,RN-[facility] Nursing notes reviewed and [id number] F presents with vaginal itching, irritation, white clumpy dc x 3 days. no vaginal odor. some burning w urination superficially. no abd pain, fever, n/v/back pain. no urinary freq/urgency Aniyah Hand MD [address], [place], [address], [place] [facility] 07/03/2022 14:00:04 4 text/html VIDEO CONSULTATION Patient name, and emergency contact verified.Patient Location - [facility] limitations discussed with patient. Patient verbally consented to consultation and treatment with telehealth today. Pt c/o dysuria and urinary pressure. Sx's began this morning. Pt hasn't taken any OTC's for sx's. Vel RENNER noted 59yo F presents with urinary sxs since this am-dysuria, urinary freq/urgency and incomplete emptying. some lower abd pressure before urinating. no hematuria. no abnml vaginal dc. no fevers. no n/v/back pain. no relief w increased water intake. h/o UTIs in the past, last infection almost 1 yr ago. Aniyah Hand MD [address], [place], [address], [place] [facility] 05/03/2024 08:50:53 5 text/html TELEPHONIC CONSULTATION Patient name, and emergency contact verified.Patient Location - [facility] limitations discussed with patient. Patient verbally consented to consultation and treatment with telehealth today. Pt c/o nasal congestion, sinus pressure-denies tenderness, non productive cough and laryngitis. Sx's began 3 days ago. Pt hasn't taken any OTC's. Pt hasn't taken covid test. Vel RENNER noted 59yo F presents with acute onset URI sxs. Sxs started 3 days ago- sore throat, nasal/sinus congestion, raspy voice, fatigue. no fever/chills, myalgias, nausea/vomiting/loose stools. no sob/wheezing/chest tightness. good appetite. no sick contacts in the home. Min relief w OTC cold meds. nonsmoker. has not taken a home covid test for sxs. Aniyah Hand MD [address], [place], [address], [place] [facility] 06/17/2024 10:41:44 5 text/html VIDEO CONSULTAION Patient name, and emergency contact verified.Patient Location - [facility] Location - [facility] limitations discussed with patient. Patient verbally consented to consultation and treatment with telehealth today. 59 yo female presents today with complaints of sinus issues. Patient states that she was seen 06/17/24 for a possible sinus infection. Her current symptoms are sinus congestion, sinus pain/pressure, slight cough due to drainage, COVID test done on 06/18/24 was negative. She states that she was told to take OTC meds which have not helped.- using mucinex and decongestant, saline rinse with no relief. Bebeto Marshall DO [address], [place], [address], [place] [facility] 06/29/2024 07:29:55 5 text/html VIDEO CONSULTAION Patient name, and emergency contact verified.Patient Location - [facility] Location - [facility] limitations discussed with patient. Patient verbally consented to consultation and treatment with telehealth today. 59 yo female presents today with complaints of sinus congestion for approx 1 to 2 days. Her current complaints are post nasal drip, sinus congestion, and blowing her nose. - sneezing a lot.no fever. - DM2 - on rybelsus.which she is tolerating well. A1C 6.6.wants to gain more weight but her PCP told her she is doing well at her current weight with BMI around 23. Bebeto Marshall DO [address], [place], [address], [place] [facility] 08/26/2024 12:34:21 OBGyn Episode No OBEpisode recorded.
--- OUTSIDE RECORDS SUMMARY | 2024-12-21 12:29 | XMS_ITS | Clinical Summary ---
Author Organization [facility] Address [address] [place] [phone] Phone Care Team Providers Care [place] Supervisor Name Role Phone Unavailable Primary Care Provider Unavailabl e Allergies Active Allergy Reactions Criticality Noted Date Comments Empagliflozin Other (See Comments) Medium 09/20/2024 Jardiance Medications fenofibrate (TRICOR) 145 mg Oral Tablet Take 145 mg by mouth daily. Active atorvastatin (LIPITOR) 40 mg Oral Tablet Take 40 mg by mouth daily. Active spironolactone (ALDACTONE) 25 mg Oral Tablet Take 25 mg by mouth daily. Active Cholecalciferol , Vitamin D3, 50 mcg (2,000 unit) Oral Capsule Take 1 Capsule by mouth daily. Active gabapentin (NEURONTIN) 400 mg Oral Capsule Take 400 mg by mouth 2 times daily. Active metoprolol succinate (TOPROL-XL) 50 mg Oral Tablet Sustained Release 24 hr Take 50 mg by mouth daily. Active metFORMIN (GLUCOPHAGE) 1,000 mg Oral Tablet Take 1,000 mg by mouth 2 times daily. Active ENTRESTO 24-26 mg Oral Tablet Take 1 Tablet by mouth 2 times daily. Active pantoprazole (PROTONIX) 40 mg Oral Tablet, Delayed Release (E.C.) Take 40 mg by mouth daily. Active prasugreL HCl (EFFIENT) 10 mg Oral Tablet Take 10 mg by mouth daily. Active aspirin 81 mg Oral Tablet, Delayed Release (E.C.) Take 81 mg by mouth daily. Active RYBELSUS 14 mg Oral Tablet Take 14 mg by mouth daily. Active estradioL (ESTRACE) 0.01 % (0.1 mg/gram) Vagl Cream Place vaginally daily. Active azelastine (ASTELIN) 137 mcg (0.1 %) Nasl [place], Non-Aerosol 1 [place] in each nostril as needed. 5 Active DEXCOM G7 SENSOR Misc Device APPLY AND REPLACE DIRECTED 5 Active Encounters Date Type Department Care Team Description 10/18/2024 2:40 PM EDT Procedure visit [facility] [address] [id number] Suha Garcia MD Asymptomatic microscopic hematuria (Primary Dx) 09/22/2024 Results Follow-Up [facility] [address] [phone] Suha Garcia MD URINALYSIS, URINE CULTURE (NO STAIN) from Last 3 Months Social History Tobacco Use Types Packs/Day Years Used Date Smoking Tobacco: Never Smokeless Tobacco: Never Tobacco Cessation:Counseling Given: Not Answered Comments No Sex and Gender Information Value Date Recorded Sex Assigned at Not on file Legal Sex Female 1:01 PM EDT Gender Identity Not on file Sexual Orientation Not on file Obstetrics History Para Term AB IAB SAB Ectopic Multiple Livin g Live Births 3 3 2 Date Outcome GA Total Labor Labor/2nd/3rd Weight Sex Type Anes PTL Ariana A1 A5 Name Clin Para Para Demise Para Last Filed Vital Signs Vital Sign Reading Time Taken Comments Blood Pressure - - Pulse 73 09/20/2024 12:51 PM EDT Temperature - - Respiratory Rate - - Oxygen Saturation 98% 09/20/2024 12:51 PM EDT Inhaled Oxygen Concentration - - Weight 55.4 kg (122 lb 3.2 oz) 09/20/2024 12:51 PM EDT Height - - Body Mass Index - - Plan of Treatment Health Maintenance Due Date Last Done Comments Annual Wellness Exam 1969 DTaP/TDaP/Td (1 - Tdap) 1985 Hepatitis B Vaccine (1 of 3 - 19+ 3-dose series) 1985 Cervical Cancer Screening 1987 Pap Smear 1987 HPV/Pap Cotest 01/02/1996 Breast Cancer Screening 2006 Cologuard 2011 Colon Cancer Screening 2011 Colonoscopy 2011 FIT 2011 Sigmoidoscopy 2011 Virtual Colonography 2011 Pneumococcal Vaccine 50+ (1 of 1 - PCV) 01/02/2016 Zoster (1 of 2) 01/02/2016 COVID-19 Vaccine (3 - 2023-2 5 season) 2024 04/07/2021, 03/10/2021 Influenza Vaccine (#1) 2025 Meningococcal B Vaccine Aged Out No l onger eligible based on patient's age to complete this topic Procedures Procedure Name Priority Date/Time Associated Diagnosis Comments [facility] URINALYSIS POC Routine 10/18/2024 2: 50 PM EDT Asymptomatic microscopic hematuria from Last 3 Months Results * [facility] URINALYSIS POC (10/18/2024 2:50 PM EDT) UA Color POC Yellow Color 10/18/2024 2:53 PM EDT [facility] Appear POC Clear Clear 10/18/2024 2:53 PM EDT [facility] Gluc POC Negative Negative mg/dL 10/18/2024 2:53 PM EDT [facility] Bili POC Negative Negative 10/18/2024 2:53 PM EDT [facility]A Ketones POC Negative Negative mg/dL 10/18/2024 2:53 PM EDT [facility] SG POC 1.025 1.001 - 1.035 no units 10/18/2024 2:53 PM EDT [facility] Blood POC Negative Negative 10/18/2024 2:53 PM EDT [facility] pH POC 5.5 5.0 - 8.0 pH 10/18/2024 2:53 PM EDT [facility] Protein POC Negative Negative mg/dL 10/18/2024 2:53 PM EDT [facility]A Urobilinogen POC 1.0 0.2, 1.0 10/18/2024 2:53 PM EDT [facility] Nitrite POC Negative Negative 10/18/2024 2:53 PM EDT [facility] UA Leuk Est POC Negative Negative 2:53 PM EDT [facility] Urine STRUCTURE OF URINARY TRACT PROPER / Unknown 10/18/2024 2:50 PM EDT 10/18/2024 2:53 PM EDT Suha Garcia MD POINT OF CARE TEST ORDERA BLES Final Result [facility] [place] [address] [place] [address] from Last 3 Months Insurance ANTHELSIE PPO ANTHEM PPO
== END 2024-12-20 23:59 | disposition home or self-care (01) ==
LOC: LAB.DROPOF 12-21 12:28
PROVIDERS: PCP Nurse Practitioner Family; Visit Provider Nurse Practitioner Family
DX: E55.9 Vitamin D deficiency, unspecified (principal); G62.9 Polyneuropathy, unspecified; I11.0 Hypertensive heart disease with heart failure; I50.20 Unspecified systolic (congestive) heart failure; E11.9 Type 2 diabetes mellitus without complications; I42.9 Cardiomyopathy, unspecified; E78.5 Hyperlipidemia, unspecified; E53.8 Deficiency of other specified B group vitamins; R41.3 Other amnesia
CPT/HCPCS: 80053; 80061; 81001; 82043; 82306; 82570; 82607; 83036; 85025; 87086; 87088; 87186